=== PATIENT | male | born 1980 | race Caucasian/White ===

== ENCOUNTER 2016-08-01 14:36 | Emergency (ER) | payer SELFPAY ==
[~2016-08-01] VITALS: Ht 170.2 cm; Wt 73.5 kg
[2016-08-01] MEDS ORDERED: IV NORMAL SALINE 1000ML BAG 1,000 ML IV SCH (15:08)
[2016-08-01 15:15] LABS: BASO # 0.1 x10^3/uL (0.0-0.2); BASO % 1 % (0-3); EOS % 7 % (0-3); HEMATOCRIT 39.3 % (39.0-53.0); HEMOGLOBIN 12.5 g/dL (13.0-17.5); LYMPH # 1.3 x10^3/uL (1.0-4.8); LYMPH % 12 % (24-48); MEAN CORPUSCULAR HEMOGLOBIN 26 pg (25-35); MEAN CORPUSCULAR HGB CONC 32 g/dL (31-37); MEAN CORPUSCULAR VOLUME 81 fL (79-100); MONO % 7 % (0-9); NEUT % 74 % (31-73); PLATELET COUNT 289 x10^3/uL (140-400); RED BLOOD COUNT 4.86 x10^6/uL (4.30-5.70); RED CELL DISTRIBUTION WIDTH 18.2 % (11.5-14.5); WHITE BLOOD COUNT 10.6 x10^3/uL (4.0-11.0)
[2016-08-01] MEDS ORDERED: FENTANYL PF 100 MCG/2 ML VIAL. IV ONE (15:15)
[2016-08-01] MEDS ORDERED: ONDANSETRON PF 4 MG/2 ML VIAL. IV ONE ×2 (15:15→17:00)
[2016-08-01 15:27] LABS: CALCIUM 9.2 mg/dL (8.5-10.1); GFR 86.1; POTASSIUM 4.2 mmol/L (3.5-5.1)
--- NOTE | 2016-08-01 15:32 | PHYS DOC ---
Past Medical History Past Medical History: Asthma, Other Additional Past Medical Histor: C-DIFF Past Surgical History: Appendectomy, Cholecystectomy Additional Past Surgical Histo: NASAL, CYST ON RIGHT WRIST Alcohol Use: None Drug Use: None Adult General Chief Complaint Chief Complaint: ABDOMINAL PAIN HPI HPI Patient is a 35 year old female who presents with abdominal pain and nausea/ vomiting/diarrhea. Patient reports for the past 3 days he has been having sharp right upper quadrant and suprapubic pain. No clear inciting or mitigating factors. He also reports he has been having nausea/vomiting/diarrhea as well. He reports 3 episodes of emesis over the past 24 hours. He also had 9 episodes of diarrhea yesterday. Patient reports symptoms are similar to when he had C. diff. He has taken Tylenol for pain with insufficient relief. Review of Systems Review of Systems Constitutional: Denies fever or chills Eyes: Denies change in visual acuity or eye pain HENT: Denies nasal congestion or sore throat Respiratory: Denies cough or shortness of breath Cardiovascular: Denies chest pain GI: RUQ/suprapubic abdominal pain, nausea, vomiting, diarrhea. Deneis bloody stools : Denies dysuria or hematuria Musculoskeletal: Denies back pain or joint pain Integument: Denies rash or skin lesions Neurologic: Denies headache, focal weakness or sensory changes Current Medications Current Medications Current Medications Medications (Trade) Dose Ordered Sig/Sugar Start Time Stop Time Status Last Admin Dose Admin Fentanyl Citrate (Fentanyl 2ml Vial) 50 mcg 1X ONCE 08/01/16 15:15 08/01/16 15:16 DC 08/01/16 15:28 50 MCG Morphine Sulfate 4 mg 1X ONCE 08/01/16 16:00 08/01/16 16:01 DC 08/01/16 15:53 4 MG Ondansetron HCl (Zofran) 4 mg 1X ONCE 08/01/16 17:00 08/01/16 17:01 DC Sodium Chloride (Iv Sodium Chloride 0.9% 1000ml Bag) 1,000 ml @ 1,000 mls/hr Q1H 08/01/16 15:08 08/01/16 16:07 DC 08/01/16 15:28 1,000 MLS/HR Allergies Allergies Allergies Coded Allergies Type Severity Reaction Last Updated Verified NSAIDS (Non-Steroidal Anti-Inflamma Allergy Intermediate 12/4/16 No chlorpheniramine Allergy Unknown 04/21/16 Yes levofloxacin Allergy Unknown 04/21/16 Yes lorazepam Allergy Unknown 04/21/16 Yes metoclopramide Allergy Unknown 04/21/16 Yes phenylephrine Allergy Unknown 04/21/16 Yes scopolamine Allergy Unknown 04/21/16 Yes tramadol Allergy Unknown 04/21/16 Yes Physical Exam Physical Exam Constitutional: Well developed, well nourished, no acute distress, non-toxic appearance HENT: Normocephalic, atraumatic, bilateral external ears normal Eyes: Wearing patch over L eye; R eye EOMI, no discharge Neck: Normal range of motion, no stridor Cardiovascular: Tachycardic, regular rhythm, no murmur Lungs & Thorax: Bilateral breath sounds clear to auscultation Abdomen: Bowel sounds normal, soft, non-distended, mild RUQ TTP without guarding or rebound Skin: Warm, dry, no erythema, no rash Extremities: No obvious deformity, no edema Neurologic: Alert and oriented X 3, no gross deficits noted Psychologic: Affect normal, judgement normal, mood normal Current Patient Data Vital Signs Vital Signs Date Time Temp Pulse Resp B/P Pulse Ox O2 Delivery O2 Flow Rate FiO2 08/01/16 16:57 94 24 135/76 08/01/16 15:56 Room Air 08/01/16 15:53 96 08/01/16 14:38 97.8 97.8 Lab Values Laboratory Tests Test 08/01/16 14:55 08/01/16 15:58 White Blood Count 10.6x10^3/uL (4.0-11.0) Red Blood Count 4.86x10^6/uL (4.30-5.70) Hemoglobin 12.5g/dL (13.0-17.5) L Hematocrit 39.3% (39.0-53.0) Mean Corpuscular Volume 81fL (79-100) Mean Corpuscular Hemoglobin 26pg (25-35) Mean Corpuscular Hemoglobin Concent 32g/dL (31-37) Red Cell Distribution Width 18.2% (11.5-14.5) H Platelet Count 289x10^3/uL (140-400) Neutrophils (%) (Auto) 74% (31-73) H Lymphocytes (%) (Auto) 12% (24-48) L Monocytes (%) (Auto) 7% (0-9) Eosinophils (%) (Auto) 7% (0-3) H Basophils (%) (Auto) 1% (0-3) Neutrophils # (Auto) 7.8x10^3uL (1.8-7.7) H Lymphocytes # (Auto) 1.3x10^3/uL (1.0-4.8) Monocytes # (Auto) 0.7x10^3/uL (0.0-1.1) Eosinophils # (Auto) 0.7x10^3/uL (0.0-0.7) Basophils # (Auto) 0.1x10^3/uL (0.0-0.2) Sodium Level 144mmol/L (136-145) Potassium Level 4.2mmol/L (3.5-5.1) Chloride Level 108mmol/L (98-107) H Carbon Dioxide Level 25mmol/L (21-32) Anion Gap 11 (6-14) Blood Urea Nitrogen 15mg/dL (8-26) Creatinine 1.0mg/dL (0.7-1.3) Estimated GFR (Cockcroft-Gault) 86.1 BUN/Creatinine Ratio 15 (6-20) Glucose Level 107mg/dL (70-99) H Calcium Level 9.2mg/dL (8.5-10.1) Total Bilirubin 0.2mg/dL (0.2-1.0) Aspartate Amino Transferase (AST) 16U/L (15-37) Alanine Aminotransferase (ALT) 20U/L (16-63) Alkaline Phosphatase 91U/L (46-116) Total Protein 7.3g/dL (6.4-8.2) Albumin 3.7g/dL (3.4-5.0) Albumin/Globulin Ratio 1.0 (1.0-1.7) Lipase 155U/L (73-393) Urine Collection Type Unknown Urine Color Yellow Urine Clarity Clear Urine pH 6.5 Urine Specific [place] 1.025 Urine Protein Negativemg/dL (NEG-TRACE) Urine Glucose (UA) Negativemg/dL (NEG) Urine Ketones (Stick) Negativemg/dL (NEG) Urine Blood Trace (NEG) Urine Nitrite Negative (NEG) Urine Bilirubin Negative (NEG) Urine Urobilinogen Dipstick 0.2mg/dL (0.2 mg/dL) Urine Leukocyte Esterase Negative (NEG) Urine RBC 1-2/HPF (0-2) Urine WBC 0/HPF (0-4) Urine Bacteria 0/HPF (0-FEW) Urine Mucus Slight/LPF Laboratory Tests 08/01/16 14:55 Laboratory Tests 08/01/16 14:55 EKG EKG [] Radiology/Procedures Radiology/Procedures [] Course & Med Decision Making Course & Med Decision Making Pertinent Labs and Imaging studies reviewed. (See chart for details) Patient is 35 year old male who presents with abdominal pain and N/V/D. Possible C diff, as patient has history of this. Will check labs, stool studies. IVF, pain meds, anti-emetic for symptom relief. Labs unremarkable. Patient has not been able to provide stool sample while in the ED. Discussed results with patient. He is feeling better at this time. Will go ahead and treat empirically for C diff. Patient discharged with rx for flagyl, nausea meds , short course of pain medication, instructions for close follow up with PCP, return precautions. Dragon Disclaimer Dragon Disclaimer This electronic medical record was generated, in whole or in part, using a voice recognition dictation system. Departure Departure Impression: Primary Impression: Diarrhea Additional Impression: Abdominal pain Disposition: 01 HOME, SELF-CARE Condition: IMPROVED Referrals: NO PCP (PCP) Patient Instructions: Abdominal Pain (Nonspecific), Diarrhea, Nausea and Vomiting Additional Instructions: Thank you for allowing us to provide care today in the Emergency Department. Take the provided medication as directed. Use caution when taking the pain medication as it can make you drowsy. Schedule a follow up appointment with your primary care doctor. Return promptly to the Emergency Department if you develop any new or concerning symptoms. Scripts Metronidazole 500 Mg Tablet1 Tab PO TID #30 TAB Prov:LORRAINE HILLS MD 08/01/16 Hydrocodone/Apap 5-325 ([place] 5-325 Tablet)1 Each Tablet1 Tab PO PRN Q6HRS PRN PAIN #15 TAB Prov:LORRAINE HILLS MD 08/01/16 Ondansetron Hcl (Zofran)4 Mg Tablet1 Tab PO Q8HRS PRN NAUSEA #15 TAB Prov:LORRAINE HILLS MD 08/01/16 Problem Qualifiers LORRAINE HILLS MD Aug 01, 2016 15:32
[2016-08-01 15:33] LABS: ALBUMIN 3.7 g/dL (3.4-5.0); TOTAL BILIRUBIN 0.2 mg/dL (0.2-1.0); TOTAL PROTEIN 7.3 g/dL (6.4-8.2)
[2016-08-01] MEDS ORDERED: MORPHINE SULFATE 4 MG/ML DISP.SYRIN. IV ONE (16:00)
[2016-08-01 16:05] LABS: BILIRUBIN,URINE NEGATIVE (NEG); GLUCOSE,URINE NEGATIVE (NEG); NITRITE,URINE NEGATIVE (NEG); PH,URINE 6.5; PROTEIN,URINE NEGATIVE (NEG-TRACE); UROBILINOGEN,URINE 0.2 mg/dL (0.2 mg/dL)
[2016-08-01 16:29] LABS: BACTERIA,URINE 0 /HPF (0-FEW); WBC,URINE 0 /HPF (0-4)
[2016-08-01 16:57] VITALS: BP 135/76
[2016-08-01] MEDS ORDERED: ONDA4TAB7 PO (17:06)
[2016-08-01] MEDS ORDERED: HYDR-971 PO (17:06)
[2016-08-01] MEDS ORDERED: METR500T4 PO (17:07)
== END 2016-08-01 17:15 | disposition home or self-care (01) ==
LOC: ER 14:36
DX: R19.7 Diarrhea, unspecified (principal); R10.11 Right upper quadrant pain; R11.2 Nausea with vomiting, unspecified; R10.30 Lower abdominal pain, unspecified; J45.909 Unspecified asthma, uncomplicated; Z88.6 Allergy status to analgesic agent; Z88.1 Allergy status to other antibiotic agents; Z88.5 Allergy status to narcotic agent; Z88.8 Allergy status to other drugs, medicaments and biological substances; Z90.49 Acquired absence of other specified parts of digestive tract
CPT/HCPCS: 36415; 80053; 81001; 83690; 85027; 96361; 96374; 96375; 99284; J2270; J2405; J3010; J7030

== ENCOUNTER 2016-08-06 15:57 | Inpatient (IN) | payer SELFPAY ==
[~2016-08-06] VITALS: Ht 170.2 cm; Wt 68.5 kg
[~2016-08-06 15:57] MED LIST: HYDR-971 PO; METR500T4 PO; ONDA4TAB7 PO
[2016-08-06] MEDS ORDERED: IV NORMAL SALINE 1000ML BAG 1,000 ML IV SCH (16:17)
--- NOTE | 2016-08-06 16:25 | PHYS DOC ---
Past Medical History Past Medical History: Asthma, Other Additional Past Medical Histor: C-DIFF Past Surgical History: Appendectomy, Cholecystectomy Additional Past Surgical Histo: NASAL, CYST ON RIGHT WRIST Alcohol Use: None Drug Use: None Adult General Chief Complaint Chief Complaint: DIARRHEA HPI HPI 35-year-old male who has ongoing C. difficile infection and is on day 7 of a 10 day course of Flagyl. He was seen 7 days ago with the symptoms prescribe Flagyl that time. He states over the last several days his pain has worsened and his diarrhea has not improved. He states that little to eat or drink. He localizes also pain to the right upper quadrant. He reports that he's had ongoing issues with C. difficile ever since he had a cholecystectomy back in January. He required admission initially with IV antibiotics. The possibility of fecal transplant was discussed and he did not undergo this. He denies any vomiting. He states he has history of asthma only. He states he's anaphylactic with NSAIDs and has had to be intubated four times when he takes NSAIDs. Pt states his pain is an 8/10 on the pain scale. Review of Systems Review of Systems Constitutional: Denies fever or chills [] Eyes: Denies change in visual acuity, redness, or eye pain [] HENT: Denies nasal congestion or sore throat [] Respiratory: Denies cough or shortness of breath [] Cardiovascular: No additional information not addressed in HPI [] GI: Has abdominal pain, has nausea, denies vomiting, denies bloody stools, has diarrhea [] : Denies dysuria or hematuria [] Musculoskeletal: Denies back pain or joint pain [] Integument: Denies rash or skin lesions [] Neurologic: Denies headache, focal weakness or sensory changes [] Endocrine: Denies polyuria or polydipsia [] Current Medications Current Medications Current Medications Medications (Trade) Dose Ordered Sig/Sugar Start Time Stop Time Status Last Admin Dose Admin Hydromorphone HCl (Dilaudid) 1 mg 1X ONCE 08/06/16 16:30 08/06/16 16:31 DC 08/06/16 17:03 1 MG Ondansetron HCl 4 mg 4 mg 1X ONCE 08/06/16 16:30 08/06/16 16:31 DC 08/06/16 17:03 4 MG Sodium Chloride (Iv Sodium Chloride 0.9% 1000ml Bag) 1,000 ml @ 125 mls/hr Q8H 08/06/16 17:27 08/07/16 17:26 Allergies Allergies Allergies Coded Allergies Type Severity Reaction Last Updated Verified NSAIDS (Non-Steroidal Anti-Inflamma Allergy Intermediate 04/21/16 No chlorpheniramine Allergy Unknown 04/21/16 Yes levofloxacin Allergy Unknown 04/21/16 Yes lorazepam Allergy Unknown 04/21/16 Yes metoclopramide Allergy Unknown 04/21/16 Yes phenylephrine Allergy Unknown 04/21/16 Yes scopolamine Allergy Unknown 04/21/16 Yes tramadol Allergy Unknown 04/21/16 Yes Physical Exam Physical Exam Constitutional: Well developed, well nourished, no acute distress, non-toxic appearance. [] HENT: Normocephalic, atraumatic, bilateral external ears normal, oropharynx moist, no oral exudates, nose normal. [] Eyes: PERRLA, EOMI, conjunctiva normal, no discharge. [] Neck: Normal range of motion, no tenderness, supple, no stridor. [] Cardiovascular:Heart rate regular rhythm, no murmur [] Lungs & Thorax: Bilateral breath sounds clear to auscultation [] Abdomen: Bowel sounds normal, soft, RUQ tenderness, no masses, no pulsatile masses. [] Skin: Warm, dry, no erythema, no rash. [] Back: No tenderness, no CVA tenderness. [] Extremities: No tenderness, no cyanosis, no clubbing, ROM intact, no edema. [] Neurologic: Alert and oriented X 3, normal motor function, normal sensory function, no focal deficits noted. [] Psychologic: Affect normal, judgement normal, mood normal. [] Current Patient Data Vital Signs Vital Signs Date Time Temp Pulse Resp B/P Pulse Ox O2 Delivery O2 Flow Rate FiO2 08/06/16 17:03 16 08/06/16 16:25 98.0 114 141/104 99 Room Air 98.0 Lab Values Laboratory Tests Test 08/06/16 16:50 White Blood Count 9.4x10^3/uL (4.0-11.0) Red Blood Count 4.89x10^6/uL (4.30-5.70) Hemoglobin 12.5g/dL (13.0-17.5) L Hematocrit 39.2% (39.0-53.0) Mean Corpuscular Volume 80fL (79-100) Mean Corpuscular Hemoglobin 26pg (25-35) Mean Corpuscular Hemoglobin Concent 32g/dL (31-37) Red Cell Distribution Width 18.4% (11.5-14.5) H Platelet Count 352x10^3/uL (140-400) Neutrophils (%) (Auto) 60% (31-73) Lymphocytes (%) (Auto) 16% (24-48) L Monocytes (%) (Auto) 7% (0-9) Eosinophils (%) (Auto) 17% (0-3) H Basophils (%) (Auto) 1% (0-3) Neutrophils # (Auto) 5.6x10^3uL (1.8-7.7) Lymphocytes # (Auto) 1.5x10^3/uL (1.0-4.8) Monocytes # (Auto) 0.7x10^3/uL (0.0-1.1) Eosinophils # (Auto) 1.6x10^3/uL (0.0-0.7) H Basophils # (Auto) 0.1x10^3/uL (0.0-0.2) Sodium Level 140mmol/L (136-145) Potassium Level 4.7mmol/L (3.5-5.1) Chloride Level 105mmol/L (98-107) Carbon Dioxide Level 24mmol/L (21-32) Anion Gap 11 (6-14) Blood Urea Nitrogen 16mg/dL (8-26) Creatinine 1.0mg/dL (0.7-1.3) Estimated GFR (Cockcroft-Gault) 86.1 Glucose Level 115mg/dL (70-99) H Calcium Level 8.9mg/dL (8.5-10.1) Total Bilirubin 0.2mg/dL (0.2-1.0) Direct Bilirubin < 0.1mg/dL (0.0-0.2) Aspartate Amino Transferase (AST) 17U/L (15-37) Alanine Aminotransferase (ALT) 20U/L (16-63) Alkaline Phosphatase 91U/L (46-116) Total Protein 6.7g/dL (6.4-8.2) Albumin 3.6g/dL (3.4-5.0) Lipase 151U/L (73-393) Laboratory Tests 08/06/16 16:50 Laboratory Tests 08/06/16 16:50 EKG EKG [] Radiology/Procedures Radiology/Procedures [] Course & Med Decision Making Course & Med Decision Making Pertinent Labs and Imaging studies reviewed. (See chart for details) This 35-year-old male with significant right upper quadrant pain and continued diarrhea for the last several weeks is likely still having ongoing C. difficile infection. IV fluids, IV Dilaudid, IV Zofran will be administered. Stool cultures and full laboratory workup will be obtained. On my second reassessment, the patient still requiring more pain control and I will be admitting him for further evaluation treatment for his diarrhea and abdominal pain. His laboratory workup at this time is unrevealing. I discussed the need to admit the patient for his ongoing symptoms with Dr. Negrete, the hospitalist, who agreed to accept the patient in to begin PO vancomycin treatment for likely ongoing C-Diff infection. He will continue to receive IVF and pain control. Dragon Disclaimer Dragon Disclaimer This electronic medical record was generated, in whole or in part, using a voice recognition dictation system. Departure Departure Impression: Primary Impression: C. difficile colitis Additional Impressions: Diarrhea Abdominal pain Disposition: ADMITTED INPATIENT Admitting Physician: Airam Negrete Condition: STABLE Referrals: NO PCP (PCP) Problem Qualifiers DAMEON PHAM DO Aug 06, 2016 16:25
[2016-08-06] MEDS ORDERED: ONDANSETRON PF 4 MG/2 ML VIAL. IV ONE (16:30)
[2016-08-06] MEDS ORDERED: HYDROMORPHONE 2 MG/ML VIAL. IV ONE ×2 (16:30→17:45)
[2016-08-06 17:08] LABS: BASO # 0.1 x10^3/uL (0.0-0.2); BASO % 1 % (0-3); EOS % 17 % (0-3); HEMATOCRIT 39.2 % (39.0-53.0); HEMOGLOBIN 12.5 g/dL (13.0-17.5); LYMPH # 1.5 x10^3/uL (1.0-4.8); LYMPH % 16 % (24-48); MEAN CORPUSCULAR HEMOGLOBIN 26 pg (25-35); MEAN CORPUSCULAR HGB CONC 32 g/dL (31-37); MEAN CORPUSCULAR VOLUME 80 fL (79-100); MONO % 7 % (0-9); NEUT % 60 % (31-73); PLATELET COUNT 352 x10^3/uL (140-400); RED BLOOD COUNT 4.89 x10^6/uL (4.30-5.70); RED CELL DISTRIBUTION WIDTH 18.4 % (11.5-14.5); WHITE BLOOD COUNT 9.4 x10^3/uL (4.0-11.0)
[2016-08-06 17:14] LABS: CALCIUM 8.9 mg/dL (8.5-10.1); GFR 86.1; POTASSIUM 4.7 mmol/L (3.5-5.1)
[2016-08-06] MEDS ORDERED: ONDANSETRON PF 4 MG/2 ML VIAL. IV PRN (17:30)
[2016-08-06] MEDS ORDERED: ACETAMINOPHEN 325 MG TABLET. PO PRN (17:30)
[2016-08-06] MEDS ORDERED: VANCOMYCIN 125 MG/2.5 ML ORAL SOLUTION. PO ONE (18:00)
[2016-08-06] MEDS ORDERED: VANCOMYCIN 250 MG/5 ML ORAL SOLUTION. PO ONE (18:00)
[2016-08-06 18:13] LABS: ALBUMIN 3.6 g/dL (3.4-5.0); ALK PHOS 91 U/L (46-116); ALT (SGPT) 20 U/L (16-63); AST (SGOT) 17 U/L (15-37); DIRECT BILIRUBIN < 0.1 mg/dL (0.0-0.2); TOTAL BILIRUBIN 0.2 mg/dL (0.2-1.0); TOTAL PROTEIN 6.7 g/dL (6.4-8.2)
[2016-08-06] MEDS: HYDROMORPHONE 2 MG/ML VIAL. IV PRN ×2 (18:44→20:49)
[2016-08-06] MEDS: IV NORMAL SALINE 1000ML BAG 1,000 ML IV SCH (18:44)
[2016-08-06] MEDS ORDERED: BUDE10.2 IH (18:50)
[2016-08-06] MEDS ORDERED: PROVENTIL HFA6.7 GM IH (18:50)
[2016-08-06 19:00] VITALS: BP 137/90
[2016-08-06] MEDS ORDERED: NON FORMULARY ITEM (Budesonide/Formoterol Fumarate (Symbicort 160-4.5 Mcg Inhaler) 2 PUFF) IH SCH (21:00)
[2016-08-06] MEDS ORDERED: NON FORMULARY ITEM (Albuterol Sulfate (Proventil Hfa Inhaler) 1 PUFF) IH PRN (21:00)
[2016-08-06] MEDS ORDERED: ONDANSETRON ODT 4 MG TAB.RAPDIS PO PRN (21:00)
--- NOTE | 2016-08-06 21:26 | PDOC1 ---
History and Physical Date of Admission Date of Admission DATE: 08/06/16 TIME: 21:25 Identification/Chief Complaint Chief Complaint RUQ pain Source Source: Chart review, Patient History of Present Illness History of Present Illness Mr. Rivera is a a 35-year-old male with a story that is convoluted at best 4 ER visits here for abd pain, and Left AMA Dec 5 when narcotics were witheld. There is never a stool pos for c.diff. Abx started empirically 6 days ago, flagadriana, and he reports worsening pain and diarrhea, was only near this hospital as he was [place] with his [place] in the Area. He has bene to [facility], [facility] and [facility] He reports intubated 4 times due to being given NSAIDS, prior pain from Migranes, no recent RAMEY. Prior Chasidy, now RUQ pain, 9/10, better with IV dilaudid given in the ER. He was only given #15 Percocets 6 days ago by ER eval, Past Medical History Cardiovascular: No pertinent hx Pulmonary: Asthma CENTRAL NERVOUS SYSTEM: Migraine GI: Other (colitis) Heme/Onc: No pertinent hx Hepatobiliary: No pertinent hx Psych: No pertinent hx Musculoskeletal: low back pain Rheumatologic: No pertinent hx Infectious disease: No pertinent hx ENT: No pertinent hx Renal/: No pertinent hx Past Surgical History Past Surgical History: Other (nasal surg. severed left optic nerve, left eye blind) Social History Smoke: 1 pack per day (CHEW) ALCOHOL: none Current Problem List Problem List Problems Medical Problems: (1) Abdominal pain Status: Acute (2) C. difficile colitis Status: Acute (3) Diarrhea Status: Acute Problems: Current Medications Current Medications Current Medications Sodium Chloride (Iv Sodium Chloride 0.9% 1000ml Bag) 1,000 ml @ 1,000 mls/hr Q1H IV Last administered on 08/06/16 17:02; Start 08/06/16 at 16:17; Stop at 17:16; Status DC Hydromorphone HCl (Dilaudid) 1 mg 1X ONCE IV Last administered on 08/06/16 17 :03; Start 08/06/16 at 16:30; Stop 08/06/16 at 16:31; Status DC Ondansetron HCl (Zofran) 4 mg 1X ONCE IV Last administered on 08/06/16 17:03 ; Start 08/06/16 at 16:30; Stop 08/06/16 at 16:31; Status DC Ondansetron HCl 4 mg 4 mg PRN Q8HRS PRN IV NAUSEA/VOMITING Last administered on 08/06/16 18:43; Start 08/06/16 at 17:30; Stop 08/07/16 at 17:29 Sodium Chloride (Iv Sodium Chloride 0.9% 1000ml Bag) 1,000 ml @ 125 mls/hr Q8H IV Last administered on 08/06/16 18:44; Start 08/06/16 at 17:27; Stop at 17:26 Acetaminophen (Tylenol) 650 mg PRN Q4HRS PRN PO FEVER; Start 08/06/16 at 17:30 ; Stop 08/07/16 at 17:29 Hydromorphone HCl (Dilaudid) 1 mg PRN Q2HR PRN IV PAIN SEVERE Last administered on 08/06/16 20:49; Start 08/06/16 at 17:30; Stop 08/06/16 at 20:57 ; Status DC Hydromorphone HCl (Dilaudid) 1 mg 1X ONCE IV Last administered on 08/06/16 17 :54; Start 08/06/16 at 17:45; Stop 08/06/16 at 17:46; Status DC Vancomycin HCl 250 mg [id number] PO ; Start 08/06/16 at 23:00 Vancomycin HCl 250 mg ONCE ONCE PO ; Start 08/06/16 at 18:00; Stop 08/06/16 at 18:00; Status DC Vancomycin HCl 250 mg ONCE ONCE PO Last administered on 08/06/16 18:16; Start 08/06/16 at 18:00; Stop 08/06/16 at 18:01; Status DC Non-Formulary Medication 1 puff PRN Q4HRS PRN IH SHORTNESS OF BREATH; Start at 21:00; Status UNV Non-Formulary Medication 2 puff BID IH ; Start 08/06/16 at 21:00; Status UNV Ondansetron HCl (Zofran Odt) 4 mg PRN Q8HRS PRN PO NAUSEA; Start 08/06/16 at 21 :00 Oxycodone/ Acetaminophen (Percocet 10/325) 1 tab PRN Q4HRS PRN PO SEVERE PAIN; Start 08/06/16 at 21:00 Hydromorphone HCl (Dilaudid) 1 mg PRN Q4HRS PRN IVP SEVERE PAIN; Start at 21:00 Budesonide (Pulmicort) 0.5 mg RTBID NEB ; Start 08/07/16 at 08:00 Albuterol Sulfate (Ventolin Neb Soln) 2.5 mg RTQID NEB ; Start 08/07/16 at 08:00 Albuterol Sulfate (Ventolin Neb Soln) 2.5 mg PRN Q4HRS PRN NEB SHORTNESS OF BREATH; Start 08/06/16 at 21:00 Active Scripts Active Metronidazole 500 Mg Tablet 1 Tab PO TID [place] 5-325 Tablet (Acetaminophen/Hydrocodone Bitart) 1 Each Tablet 1 Tab PO PRN Q6HRS PRN Zofran (Ondansetron Hcl) 4 Mg Tablet 1 Tab PO Q8HRS PRN Reported Proventil Hfa Inhaler (Albuterol Sulfate) 6.7 Gm Hfa.aer.ad 1 Puff IH PRN Q4HRS PRN Symbicort 160-4.5 Mcg Inhaler (Budesonide/Formoterol Fumarate) 10.2 Gm Hfa.aer.ad 2 Puff IH BID Allergies Allergies: Coded Allergies: NSAIDS (Non-Steroidal Anti-Inflamma (Unverified Allergy, Intermediate, 04/21/16) chlorpheniramine (Verified Allergy, Intermediate, 08/06/16) levofloxacin (Verified Allergy, Intermediate, 08/06/16) lorazepam (Verified Allergy, Intermediate, 08/06/16) metoclopramide (Verified Allergy, Intermediate, 08/06/16) phenylephrine (Verified Allergy, Intermediate, 08/06/16) scopolamine (Verified Allergy, Intermediate, 08/06/16) tramadol (Verified Allergy, Intermediate, 08/06/16) ROS General: No: Appetite, Chills, Fatigue, Malaise, Night Sweats, Other PSYCHOLOGICAL ROS: No: Anxiety, Behavioral Disorder, Concentration difficultie , Decreased libido, Depression, Disorientation, Hallucinations, Hostility, Irritablity, Memory difficulties, Mood Swings, Obsessive thoughts, Other, Physical abuse, Sexual abuse, Sleep disturbances, Suicidal ideation Eyes: No Blurry vision, No Decreased vision, No Double vision, No Dry eyes, No Excessive tearing, No Eye Pain, No Itchy Eyes, No Loss of vision, No Other, No Photophobia, No Scotomata, No Uses contacts, No Uses glasses Respiratory: No: Cough, Hemoptysis, Orthopnea, Other, Pleuritic Pain, SOB with excertion, Shortness of breath, Sputum Changes, Stridor, Tachypnea, Wheezing Cardiovascular: yes Chest Pain, No Edema, No Lt Headedness, No Orthopnea, No Other, No Palpitations, No Paroxysmal Noc. Dyspnea Gastrointestinal: Yes Abdominal Pain, Yes Diarrhea, Yes Nausea Genitourinary: No , No , No , No , No , No , No , No Discharge, No Dysuria, No Flank Pain, No Frequency, No Hematuria, No Incontinence, No Other, No Pain, No Retention, No Urgency Musculoskeletal: Yes Joint Pain, No Gait Disturbance, No Joint Stiffness, No Joint Swelling, No Muscle Pain, No Muscular Weakness, No Other, No Pain In:, No Swelling In: Neurological: No Behavorial Changes, No Bowel/Bladder ControlChng, No Confusion , No Dizziness, No Gait Disturbance, No Headaches, No Impaired Coord/balance, No Memory Loss, No Numbness/Tingling, No Other, No Seizures, No Speech Problems , No Tremors, No Visual Changes, No Weakness Skin: No Acne, No Dry Skin, No Eczema, No Hair Changes, No Lumps, No Mole Changes, No Mottling, No Nail Changes, No Other, No Pruritus, No Rash, No Skin Lesion Changes Physical Exam General: Alert, Oriented X3, Cooperative, No acute distress Lungs: Clear to auscultation, Normal air movement Heart: S1S2, no murmurs Abdomen: Normal bowel sounds, Soft, No tenderness Rectal Exam: not examined Extremities: No clubbing, No edema Skin: No rashes, No significant lesion Neuro: Normal speech, Normal tone, Sensation intact Psych/Mental Status: Mental status NL, Mood NL Vitals Vitals Vital Signs Date Time Temp Pulse Resp B/P Pulse Ox O2 Delivery O2 Flow Rate FiO2 08/06/16 20:49 20 100 Room Air 08/06/16 19:00 98.0 90 137/90 98.0 Labs Labs Laboratory Tests Test 3/21/17 16:50 White Blood Count 9.4x10^3/uL (4.0-11.0) Red Blood Count 4.89x10^6/uL (4.30-5.70) Hemoglobin 12.5g/dL (13.0-17.5) Hematocrit 39.2% (39.0-53.0) Mean Corpuscular Volume 80fL (79-100) Mean Corpuscular Hemoglobin 26pg (25-35) Mean Corpuscular Hemoglobin Concent 32g/dL (31-37) Red Cell Distribution Width 18.4% (11.5-14.5) Platelet Count 352x10^3/uL (140-400) Neutrophils (%) (Auto) 60% (31-73) Lymphocytes (%) (Auto) 16% (24-48) Monocytes (%) (Auto) 7% (0-9) Eosinophils (%) (Auto) 17% (0-3) Basophils (%) (Auto) 1% (0-3) Neutrophils # (Auto) 5.6x10^3uL (1.8-7.7) Lymphocytes # (Auto) 1.5x10^3/uL (1.0-4.8) Monocytes # (Auto) 0.7x10^3/uL (0.0-1.1) Eosinophils # (Auto) 1.6x10^3/uL (0.0-0.7) Basophils # (Auto) 0.1x10^3/uL (0.0-0.2) Sodium Level 140mmol/L (136-145) Potassium Level 4.7mmol/L (3.5-5.1) Chloride Level 105mmol/L (98-107) Carbon Dioxide Level 24mmol/L (21-32) Anion Gap 11 (6-14) Blood Urea Nitrogen 16mg/dL (8-26) Creatinine 1.0mg/dL (0.7-1.3) Estimated GFR (Cockcroft-Gault) 86.1 Glucose Level 115mg/dL (70-99) Calcium Level 8.9mg/dL (8.5-10.1) Total Bilirubin 0.2mg/dL (0.2-1.0) Direct Bilirubin < 0.1mg/dL (0.0-0.2) Aspartate Amino Transf (AST/SGOT) 17U/L (15-37) Alanine Aminotransferase (ALT/SGPT) 20U/L (16-63) Alkaline Phosphatase 91U/L (46-116) Total Protein 6.7g/dL (6.4-8.2) Albumin 3.6g/dL (3.4-5.0) Lipase 151U/L (73-393) Laboratory Tests Test 08/06/16 16:50 White Blood Count 9.4x10^3/uL (4.0-11.0) Red Blood Count 4.89x10^6/uL (4.30-5.70) Hemoglobin 12.5g/dL (13.0-17.5) Hematocrit 39.2% (39.0-53.0) Mean Corpuscular Volume 80fL (79-100) Mean Corpuscular Hemoglobin 26pg (25-35) Mean Corpuscular Hemoglobin Concent 32g/dL (31-37) Red Cell Distribution Width 18.4% (11.5-14.5) Platelet Count 352x10^3/uL (140-400) Neutrophils (%) (Auto) 60% (31-73) Lymphocytes (%) (Auto) 16% (24-48) Monocytes (%) (Auto) 7% (0-9) Eosinophils (%) (Auto) 17% (0-3) Basophils (%) (Auto) 1% (0-3) Neutrophils # (Auto) 5.6x10^3uL (1.8-7.7) Lymphocytes # (Auto) 1.5x10^3/uL (1.0-4.8) Monocytes # (Auto) 0.7x10^3/uL (0.0-1.1) Eosinophils # (Auto) 1.6x10^3/uL (0.0-0.7) Basophils # (Auto) 0.1x10^3/uL (0.0-0.2) Sodium Level 140mmol/L (136-145) Potassium Level 4.7mmol/L (3.5-5.1) Chloride Level 105mmol/L (98-107) Carbon Dioxide Level 24mmol/L (21-32) Anion Gap 11 (6-14) Blood Urea Nitrogen 16mg/dL (8-26) Creatinine 1.0mg/dL (0.7-1.3) Estimated GFR (Cockcroft-Gault) 86.1 Glucose Level 115mg/dL (70-99) Calcium Level 8.9mg/dL (8.5-10.1) Total Bilirubin 0.2mg/dL (0.2-1.0) Direct Bilirubin < 0.1mg/dL (0.0-0.2) Aspartate Amino Transf (AST/SGOT) 17U/L (15-37) Alanine Aminotransferase (ALT/SGPT) 20U/L (16-63) Alkaline Phosphatase 91U/L (46-116) Total Protein 6.7g/dL (6.4-8.2) Albumin 3.6g/dL (3.4-5.0) Lipase 151U/L (73-393) VTE Prophylaxis Ordered VTE Prophylaxis Devices: No VTE Pharmacological Prophylaxi: Yes Assessment/Plan Assessment/Plan abd pain, RUQ, severe, he reports prior chasidy, LFT normal, lipase normal reports pain and freq stool, no stool sample given yet treat for c.diff started 6 days ago, he reports worse stool, I am unsure this is even this diagnosis, PO Vanc given, will continue ID consult GI consult, colitis, may be other Dr. Fernandez was concerned of behavior of secondary intent on his Apr.22 visit with this patient when the patient left AMA when no narcotics given, will treat with caution with this information, tobacco use d/o, (chew) patch PRN asthma, SEVERE, he reports rescue inhaler freq. lung sounds clear admit CARA JONES MD Aug 06, 2016 21:26
[2016-08-06] MEDS ORDERED: BISMUTH SUBSALICYLATE 262 MG/15 ML ORAL.SUSP 236ML BOTTLE. PO PRN (21:45)
[2016-08-06] MEDS ORDERED: NICOTINE 14MG PATCH. TD PRN (21:45)
[2016-08-06] MEDS ORDERED: METOCLOPRAMIDE 5 MG TABLET PO PRN (22:00)
[2016-08-06] MEDS: OXYCODONE/APAP 10/325 TABLET. PO PRN (22:02)
[2016-08-06] MEDS: FAMOTIDINE 20 MG TABLET. PO SCH (22:04)
[2016-08-06] MEDS: ALBUTEROL SULFATE 2.5 MG/3 ML NEBU. NEB PRN (22:23)
[2016-08-06] MEDS: DIPHENHYDRAMINE HCL 25 MG CAPSULE PO PRN (22:44)
[2016-08-06] MEDS: HYDROMORPHONE 2 MG/ML VIAL. IVP PRN (22:45)
[2016-08-06] MEDS: VANCOMYCIN 250 MG/5 ML ORAL SOLUTION. PO SCH (22:45)
[2016-08-06 22:50] VITALS: BP 137/94
[2016-08-07] MEDS: IV NORMAL SALINE 1000ML BAG 1,000 ML IV SCH ×2 (01:27→10:42)
[2016-08-07 03:00] VITALS: BP 134/88
[2016-08-07] MEDS: HYDROMORPHONE 2 MG/ML VIAL. IVP PRN ×5 (03:29→21:35)
[2016-08-07] MEDS: OXYCODONE/APAP 10/325 TABLET. PO PRN ×4 (03:29→21:36)
[2016-08-07 05:25] LABS: BASO % 1 % (0-3); EOS % 22 % (0-3); HEMATOCRIT 37.7 % (39.0-53.0); HEMOGLOBIN 11.8 g/dL (13.0-17.5); LYMPH # 1.8 x10^3/uL (1.0-4.8); LYMPH % 27 % (24-48); MEAN CORPUSCULAR HEMOGLOBIN 25 pg (25-35); MEAN CORPUSCULAR HGB CONC 31 g/dL (31-37); MEAN CORPUSCULAR VOLUME 82 fL (79-100); MONO % 8 % (0-9); NEUT % 43 % (31-73); PLATELET COUNT 314 x10^3/uL (140-400); RED BLOOD COUNT 4.62 x10^6/uL (4.30-5.70); RED CELL DISTRIBUTION WIDTH 18.7 % (11.5-14.5)
[2016-08-07 05:46] LABS: CALCIUM 8.5 mg/dL (8.5-10.1); CREATININE 1.2 mg/dL (0.7-1.3); GFR 69.7
[2016-08-07 06:17] LABS: % EOS 22 % (0-5)
[2016-08-07 06:18] LABS: ANISOCYTOSIS SLIGHT; PLT ESTIMATE ADEQUATE (ADEQUATE)
[2016-08-07 07:00] VITALS: BP 121/76
[2016-08-07] MEDS: BUDESONIDE 0.5 MG/2 ML NEBU NEB SCH ×2 (07:28→19:33)
[2016-08-07] MEDS: ALBUTEROL SULFATE 2.5 MG/3 ML NEBU. NEB SCH ×4 (07:28→19:33)
--- NOTE | 2016-08-07 07:33 | ACF ---
Admission Forms Criteria GASTROENTEROLOGY GRG Clinical Indications for Admission to Inpatient Care (Place 'X' for any and all applicable criteria): Hospital admission is needed for appropriate care of the patient because of ANY ONE of the following: [ ]I. Hemoperitoneum(7) [ ]II. Ascites requiring acute treatment indicated by ANY ONE of the following( 8)(9): [ ]a) Hemodynamic instability remaining after emergency or observation level care (as appropriate) [ ]b) Peritoneal signs present (eg, abdominal rigidity, rebound tenderness, absent bowel sounds) [ ]c) Tachypnea, Hypoxemia, or other respiratory symptoms remain after emergency or observation level care (as appropriate) [ ]d) Suspected infected ascites as indicated by ANY ONE of the following: [ ]i) Temperature greater than 100 degrees F (37.8 degrees C) [ ]ii) Abdominal pain or tenderness not relieved by paracentesis [ ]iii) Systemic signs of infection (eg, elevated WBC count, fever) [ ]iv) Ascitic fluid analysis consistent with infection ( eg, elevated WBC count): [ ]v) Vital sign abnormality [ ]III. Suspected acute intra-abdominal process indicated by ANY ONE of the following(1)(2)(3)(4)(5): [ ]a) Hemodynamic instability [ ]b) Peritoneal signs present (eg, abdominal rigidity, rebound tenderness, absent bowel sounds) [ ]c) Bowel obstruction suspected (eg, severe vomiting, abdominal distension) [ ]d) Suspected mesenteric ischemia or ischemic colitis(6) [ ]e) Other signs or symptoms of acute abdominal disease (eg, severe pain, free air): [ ]IV. Severe liver disease indicated by ANY ONE of the following(8)(9)(10)(11)( 12)(13)(14): [ ]a) Acute hepatitis (eg, transaminase level greater than 1000 IU/L) [ ]b) Acute elevation of prothrombin time to more than 50% above normal or INR greater than 1.5 [ ]c) Bilirubin greater than 20 mg/dL (342 micromoles/L) (15) [ ]d) New-onset or worsening hepatic encephalopathy [ ]e) Acute liver necrosis [ ]f) Vomiting or dehydration that is severe of persistent [ ]g) Hemodynamic instability due to liver disease [ ]h) Acute renal failure [ ]i) Hepatic abscess [ ]j) Dehydration that is severe or persistent [ ]k) Hepatic hydrothorax(21) [ ]l) Other indications of severe liver disease (eg, persistent fever , ingestion of hepatotoxin) [X]V. Severe diarrhea indicated by ANY ONE of the following(17)(18)(19)(20)(21)( 22)(23): [ ]a) High fever or other high-risk infection situation [ ]b) Intractable bloody diarrhea (eg, more than 6 bloody stools per day) [X]c) Suspected Clostridium difficile-associated diarrhea(24) [ ]d) Change in mental status that persists after emergency or observation level care (as appropriate) [ ]e) Severe dehydration (eg, greater than 9% loss of body weight in children) [ ]f) Inability to maintain hydration [ ]g) Peritoneal signs present (eg, abdominal rigidity, rebound tenderness, absent bowel sounds) [ ]h) Abdominal ischemia suspected(6) [ ]i) Hemodynamic instability that persists after emergency or observation level care (as appropriate) [ ]j) Severe electrolyte abnormalities requiring inpatient care [ ]k) Acute renal failure [ ]. Suspected toxic megacolon(5)(6) [ ]VII.Severe dysphagia indicated by ANY ONE of the following(25)(26): [ ]a) Suspected esophageal perforation or fistula(27) [ ]b) Suspected cause that requires inpatient care (eg, caustic ingestion, severe esophagitis) (28) [ ]c) Severe dehydration (eg, greater than 9% loss of body weight in children) [ ]d) Inability to manage secretions or maintain hydration [ ]e) Hemodynamic instability that persists after emergency or observation level care (as appropriate) [ ]f) Severe electrolyte abnormalities requiring inpatient care [ ]g) Acute renal failure [ ]VIII.Vomiting and ANY ONE of the following (29)(30)(31)(32): [ ]a) High fever or other high-risk infection situation [ ]b) Change in mental status that persists after emergency or observation level care (as appropriate) [ ]c) Severe dehydration (e.g., greater than 9% loss of body weight in children) [ ]d) Peritoneal signs present (e.g., abdominal rigidity, rebound tenderness, absent bowel sounds) [ ]e) Hemodynamic instability that persists after emergency or observation level care (as appropriate) [ ]f) Severe electrolyte abnormalities requiring inpatient care [ ]g) Acute renal failure [ ]h) Bowel obstruction suspected (e.g., severe vomiting, abdominal distension) [ ]i) Vomiting that is severe or persistent after medical treatment [ ]IX. Significant dehydration indicated by ANY ONE of the following(23)(24)(25) [ ]a) Clinical findings of severe dehydration indicated by ANY ONE of the following: [ ]i) Acute loss of weight from baseline (5% of body weight in adults, 9% in pediatric patients) [ ]ii) Hemodynamic instability [ ]iii) Acute renal failure [ ]iv) Serum sodium greater than 150 mEq/L (mmol/L) [ ]b) Dehydration that is persistent indicated by ALL of the following: [ ]i) Oral rehydration therapy not tolerated or insufficient to adequately correct dehydration [ ]ii) Appropriate intravenous treatment (eg, fluids) does not readily correct dehydration hours of (ie, after 12 to 24 of treatment) [ ]X. Gastroparesis and ANY ONE of the following(37)(38)(39): [ ]a) Dehydration that is severe or persistent [ ]b) Severe electrolyte abnormalities requiring inpatient care [ ]c) Acute renal failure [ ]d) Vomiting that is severe or persistent [ ]XI. Complications of transplanted liver indicated by ANY ONE of the following (40)(41): [ ]a) Acute graft rejection requiring inpatient management (eg, intravenous immunosuppression)(42) [ ]b) Failure of transplanted liver as indicated by ANY ONE of the following: [ ]i) Acute hepatitis (eg, transaminase level greater than 1000 International Units per liter (IU/L)) [ ]ii) Acute elevation of prothrombin time to more than 50% above baseline or INR greater than 1.5 [ ]iii) Bilirubin greater than 20 mg/dL (342 micromoles/L) [ ]iv) New-onset or worsening hepatic encephalopathy [ ]v) Acute elevation of serum ammonia level (eg, greater than 210 mcg/dL (150 micromoles/L)) [ ]vi) Acute liver necrosis [ ]c) Infection requiring inpatient management (eg, Hemodynamic instability, need for intravenous antimicrobial treatment)(43)(44)(45)(46)(47)(48)(49)(50) [ ]d) Other complication of transplanted liver (eg, thrombosis, autoimmune hepatitis, variceal bleeding) requiring inpatient management(51)(52) [ ]XII Complications of transplanted pancreas indicated by ANY ONE of the following(53): [ ]a) Acute graft rejection requiring inpatient management (eg, intravenous immunosuppression)(42)(54) [ ]b) Failure of transplanted pancreas as indicated by ANY ONE of the following: [ ]i) Serum amylase greater than 3 times the upper limit of normal or baseline [ ]ii) Serum lipase greater than 3 times the upper limit of normal or baseline [ ]iii) Imaging findings consistent with pancreatic inflammation or necrosis [ ]c) Infection requiring inpatient management (eg, Hemodynamic instability, need for intravenous antimicrobial treatment)(43)(44)(45)(46)(47)(48)(49)(50) [ ]d) Other complication of transplanted liver (eg, thrombosis, autoimmune hepatitis, variceal bleeding) requiring inpatient management(51)(52) [ ]X. Gastroenterology condition and ALL of the following: [ ]a) Symptom or finding for which emergency and observation care have failed or are not considered appropriate (Also use General Criteria: Observation Care as appropriate) [ ]b) Presence of ANY ONE of the following: [ ]i) A General Admission Criteria [ ]ii) A Pediatric General Admission Criteria. The original [facility] [employer] content created by [facility] [employer] has been revised. The portions of the content which have been revised are identified through the use of italic text or in bold,and [facility] has neither reviewed nor approved the modified material. All other unmodified content is copyright [facility]. Please see references footnoted in the original [facility] edition 2016 Admission Criteria Met?: Yes EDIL GONZALEZ Aug 07, 2016 07:33
[2016-08-07] MEDS: FAMOTIDINE 20 MG TABLET. PO SCH ×2 (08:10→21:36)
[2016-08-07] MEDS: ONDANSETRON PF 4 MG/2 ML VIAL. IV PRN ×2 (08:16→18:08)
--- NOTE | 2016-08-07 08:52 | PDOC2 ---
GI CONSULT Reason For Consult: RUQ pain, diarrhea HPI: HPI: 35 y/o male admitted through the ER. Records reviewed (at [facility], [facility]) indicate concern for possible drug-seeking behavior. Left AMA from ER in 04/2016 when narcotics withheld. Reports h/o C Diff; first occurrence in [place], [place] in 01/2016 during hospital stay for cholecystectomy. Treated first w/ Flagyl and then changed to vanco. Similar symptoms including nausea, malodorous diarrhea, and "intense" abdominal pain began over a week ago. No precipitating events including atbx use, travel, or sick contacts. Was seen at the ER here on 08/01/16 and empirically started on Flagyl. He says he also started OTC probiotics, can't remember brand. He returned last night w/ ongoing symptoms. Was having 8 watery stools daily at home when symptoms first began; diarrhea seems to have improved since because he estimates about 4 semi-formed stools yesterday w/o any today. Per RN, he had 1 formed stool last night that was unable to be collected to send for C Diff. (Note stool specimen never collected/tested at this facility.) Reports to me diffuse abdominal pain, worse w/ eating and moving. Rated 8/10 currently. Denies use of narcotics or any pain meds at home for chronic pain. Reports anaphylaxis w/ NSAIDs, also says dicyclomine doesn't work. Nausea is worse w/ eating. Has been gaining weight. On clears here, would like to advance diet. Denies GERD although had EGD prior to cholecystectomy (in [place]) which reportedly revealed some gastritis. No previous colonoscopy. Denies hematochezia, melena. In 04/2016, had normal CT @ [facility] although he reports a CT in [place], [place] 3-4 months ago showing "colon inflammation." Has two kids, ages 11 and 14, who are on spring break this week. Works in [employer]. PMH: PMH: C Diff, asthma, cholecystectomy, appendectomy, nasal surgery for polyps, sinus surgery w/ optic nerve injury (wears eye patch for double-vision/RAMEY prevention) FH: Family History: Cancer (grandmother - stomach, mother - cervical), Other ( mother - esophagus ulcers) Social History: Smoke: No (chewing tobacco) ALCOHOL: none Drugs: None ROS: GEN: Denies fevers, chills, sweats HEENT: Denies blurred vision, sore throat CV: Denies chest pain RESP: Denies shortness of air, cough GI: Per HPI : Denies hematuria, dysuria ENDO: +weight gain NEURO: Denies confusion, dizziness MSK: Denies weakness, joint pain/swelling SKIN: Denies jaundice, pruritus VItals: Vitals: Vital Signs Date Time Temp Pulse Resp B/P Pulse Ox O2 Delivery O2 Flow Rate FiO2 08/07/16 08:11 Room Air 08/07/16 07:29 99 08/07/16 07:00 98.4 74 16 121/76 98.4 Labs: Labs: Laboratory Tests Test 08/06/16 16:50 08/07/16 04:30 White Blood Count 9.4x10^3/uL (4.0-11.0) 7.0x10^3/uL (4.0-11.0) Red Blood Count 4.89x10^6/uL (4.30-5.70) 4.62x10^6/uL (4.30-5.70) Hemoglobin 12.5g/dL (13.0-17.5) 11.8g/dL (13.0-17.5) Hematocrit 39.2% (39.0-53.0) 37.7% (39.0-53.0) Mean Corpuscular Volume 80fL (79-100) 82fL (79-100) Mean Corpuscular Hemoglobin 26pg (25-35) 25pg (25-35) Mean Corpuscular Hemoglobin Concent 32g/dL (31-37) 31g/dL (31-37) Red Cell Distribution Width 18.4% (11.5-14.5) 18.7% (11.5-14.5) Platelet Count 352x10^3/uL (140-400) 314x10^3/uL (140-400) Neutrophils (%) (Auto) 60% (31-73) 43% (31-73) Lymphocytes (%) (Auto) 16% (24-48) 27% (24-48) Monocytes (%) (Auto) 7% (0-9) 8% (0-9) Eosinophils (%) (Auto) 17% (0-3) 22% (0-3) Basophils (%) (Auto) 1% (0-3) 1% (0-3) Neutrophils # (Auto) 5.6x10^3uL (1.8-7.7) 3.0x10^3uL (1.8-7.7) Lymphocytes # (Auto) 1.5x10^3/uL (1.0-4.8) 1.8x10^3/uL (1.0-4.8) Monocytes # (Auto) 0.7x10^3/uL (0.0-1.1) 0.6x10^3/uL (0.0-1.1) Eosinophils # (Auto) 1.6x10^3/uL (0.0-0.7) 1.5x10^3/uL (0.0-0.7) Basophils # (Auto) 0.1x10^3/uL (0.0-0.2) 0.0x10^3/uL (0.0-0.2) Sodium Level 140mmol/L (136-145) 140mmol/L (136-145) Potassium Level 4.7mmol/L (3.5-5.1) 4.0mmol/L (3.5-5.1) Chloride Level 105mmol/L (98-107) 105mmol/L (98-107) Carbon Dioxide Level 24mmol/L (21-32) 26mmol/L (21-32) Anion Gap 11 (6-14) 9 (6-14) Blood Urea Nitrogen 16mg/dL (8-26) 10mg/dL (8-26) Creatinine 1.0mg/dL (0.7-1.3) 1.2mg/dL (0.7-1.3) Estimated GFR (Cockcroft-Gault) 86.1 69.7 Glucose Level 115mg/dL (70-99) 77mg/dL (70-99) Calcium Level 8.9mg/dL (8.5-10.1) 8.5mg/dL (8.5-10.1) Total Bilirubin 0.2mg/dL (0.2-1.0) Direct Bilirubin < 0.1mg/dL (0.0-0.2) Aspartate Amino Transf (AST/SGOT) 17U/L (15-37) Alanine Aminotransferase (ALT/SGPT) 20U/L (16-63) Alkaline Phosphatase 91U/L (46-116) Total Protein 6.7g/dL (6.4-8.2) Albumin 3.6g/dL (3.4-5.0) Lipase 151U/L (73-393) Segmented Neutrophils % 42% (35-66) Lymphocytes % 28% (24-48) Monocytes % 8% (0-10) Eosinophils % 22% (0-5) Platelet Estimate Adequate (ADEQUATE) Anisocytosis Slight Allergies: Coded Allergies: NSAIDS (Non-Steroidal Anti-Inflamma (Unverified Allergy, Severe, Anaphylaxis, 08/06/16) chlorpheniramine (Verified Allergy, Intermediate, 08/06/16) levofloxacin (Verified Allergy, Intermediate, 08/06/16) lorazepam (Verified Allergy, Intermediate, 08/06/16) metoclopramide (Verified Allergy, Intermediate, 08/06/16) phenylephrine (Verified Allergy, Intermediate, 08/06/16) scopolamine (Verified Allergy, Intermediate, 08/06/16) tramadol (Verified Allergy, Intermediate, 08/06/16) Medications: Current Medications Medications (Trade) Dose Ordered Sig/Sugar Route PRN Reason Start Time Stop Time Status Last Admin Dose Admin Sodium Chloride (Iv Sodium Chloride 0.9% 1000ml Bag) 1,000 ml @ 1,000 mls/hr Q1H IV 08/06/16 16:17 08/06/16 17:16 DC 08/06/16 17:02 Hydromorphone HCl (Dilaudid) 1 mg 1X ONCE IV 08/06/16 16:30 08/06/16 16:31 DC 08/06/16 17:03 Ondansetron HCl (Zofran) 4 mg 1X ONCE IV 08/06/16 16:30 08/06/16 16:31 DC 08/06/16 17:03 Ondansetron HCl 4 mg 4 mg PRN Q8HRS PRN IV NAUSEA/VOMITING 08/06/16 17:30 08/06/16 22:00 DC 08/06/16 18:43 Sodium Chloride (Iv Sodium Chloride 0.9% 1000ml Bag) 1,000 ml @ 125 mls/hr Q8H IV 08/06/16 17:27 08/07/16 17:26 08/07/16 01:27 Hydromorphone HCl (Dilaudid) 1 mg PRN Q2HR PRN IV PAIN SEVERE 08/06/16 17:30 08/06/16 20:57 DC 08/06/16 20:49 Hydromorphone HCl (Dilaudid) 1 mg 1X ONCE IV 08/06/16 17:45 08/06/16 17:46 DC 08/06/16 17:54 Vancomycin HCl 250 mg [id number] PO 08/06/16 23:00 08/06/16 22:45 Vancomycin HCl 250 mg ONCE ONCE PO 08/06/16 18:00 08/06/16 18:01 DC 08/06/16 18:16 Oxycodone/ Acetaminophen (Percocet 10/325) 1 tab PRN Q4HRS PRN PO SEVERE PAIN 08/06/16 21:00 08/07/16 03:29 Hydromorphone HCl (Dilaudid) 1 mg PRN Q4HRS PRN IVP SEVERE PAIN 08/06/16 21:00 08/07/16 08:11 Budesonide (Pulmicort) 0.5 mg RTBID NEB 08/07/16 08:00 08/07/16 07:28 Albuterol Sulfate (Ventolin Neb Soln) 2.5 mg RTQID NEB 08/07/16 08:00 08/07/16 07:28 Albuterol Sulfate (Ventolin Neb Soln) 2.5 mg PRN Q4HRS PRN NEB SHORTNESS OF BREATH 08/06/16 21:00 08/06/16 22:23 Famotidine (Pepcid) 20 mg BID PO 08/06/16 22:00 08/07/16 08:10 Ondansetron HCl (Zofran) 8 mg PRN Q8HRS PRN IV NAUSEA/VOMITING 08/06/16 22:00 08/07/16 08:16 Diphenhydramine HCl (Benadryl) 25 mg PRN Q6HRS PRN PO ITCHING 08/06/16 22:00 08/06/16 22:44 PE: GEN: NAD, sitting up in bed HEENT: eye patch over left eye LUNGS: CTAB anteriorly HEART: RRR ABD: BS quiet, not much response when applying pressure w/ stethoscope, winces to palpation of RUQ and BLQ EXTREMITY: No edema SKIN: No rashes, no jaundice NEURO/PSYCH: A & O 3 A/P: A/P: Abd pain, diarrhea, nausea w/ h/o C Diff - improved -first occurrence in [place] in 01/2016, treated w/ Flagyl and vanco -recurrence of symptoms last week, empirically started on Flagyl through the ER -now admitted w/ ongoing symptoms, on vanco; ID consulted -no stool specimen collected, now having formed stools -normal CT at [facility] in 04/2016 -reports previous EGD w/ gastritis, s/p cholecystectomy and appendectomy Anemia -Hgb a little low (12/5 to 11.8) w/ elevated RDW -denies bleeding -- Not having diarrhea. Observe for this. He wants to try eating - will order GI soft. Encouraged him to avoid narcotics if possible. Will check additional labs (b12, folate, iron) re: anemia in young male. MARLENE MARC Aug 07, 2016 08:52
[2016-08-07 09:09] LABS: % SAT IRON 8 % (15-34); IRON,SERUM 28 ug/dL (65-175)
[2016-08-07 10:15] LABS: FOLATE 14.17 ng/ml (3.2-20.0)
[2016-08-07] MEDS: VANCOMYCIN 250 MG/5 ML ORAL SOLUTION. PO SCH ×4 (10:41→21:33)
[2016-08-07] MEDS: IRON POLYSACCHARIDE COMPLEX 150 MG CAPSULE PO SCH (10:42)
[2016-08-07 11:00] VITALS: BP 138/92
[2016-08-07] MEDS: VITAMIN B12,B9,B6 COMPLEX 1 TABLET. PO SCH (13:30)
--- NOTE | 2016-08-07 14:00 | PDOC ---
PROGRESS NOTES Chief Complaint Chief Complaint abd pain, RUQ, severe, LFT normal, no stool since admit iron deficiency b12 lowish anemia w. abd pain tobacco use, chew asthma, History of Present Illness History of Present Illness pain a little better no stool wants to eat he wanted to leave and not have EGD, we discussed benefit, and that he likely doesn't ahve c.diff, but has pain Vitals Vitals Vital Signs Date Time Temp Pulse Resp B/P Pulse Ox O2 Delivery O2 Flow Rate FiO2 08/07/16 13:31 Room Air 08/07/16 11:00 97.8 95 16 138/92 98 97.8 Physical Exam General: Alert, Oriented X3, Cooperative, No acute distress Heart: Regular rate Abdomen: Normal bowel sounds, Soft, No tenderness Extremities: No clubbing, No edema Skin: No rashes, No significant lesion Labs LABS Laboratory Tests Test 08/06/16 16:50 08/07/16 04:30 White Blood Count 9.4x10^3/uL (4.0-11.0) 7.0x10^3/uL (4.0-11.0) Red Blood Count 4.89x10^6/uL (4.30-5.70) 4.62x10^6/uL (4.30-5.70) Hemoglobin 12.5g/dL (13.0-17.5) 11.8g/dL (13.0-17.5) Hematocrit 39.2% (39.0-53.0) 37.7% (39.0-53.0) Mean Corpuscular Volume 80fL (79-100) 82fL (79-100) Mean Corpuscular Hemoglobin 26pg (25-35) 25pg (25-35) Mean Corpuscular Hemoglobin Concent 32g/dL (31-37) 31g/dL (31-37) Red Cell Distribution Width 18.4% (11.5-14.5) 18.7% (11.5-14.5) Platelet Count 352x10^3/uL (140-400) 314x10^3/uL (140-400) Neutrophils (%) (Auto) 60% (31-73) 43% (31-73) Lymphocytes (%) (Auto) 16% (24-48) 27% (24-48) Monocytes (%) (Auto) 7% (0-9) 8% (0-9) Eosinophils (%) (Auto) 17% (0-3) 22% (0-3) Basophils (%) (Auto) 1% (0-3) 1% (0-3) Neutrophils # (Auto) 5.6x10^3uL (1.8-7.7) 3.0x10^3uL (1.8-7.7) Lymphocytes # (Auto) 1.5x10^3/uL (1.0-4.8) 1.8x10^3/uL (1.0-4.8) Monocytes # (Auto) 0.7x10^3/uL (0.0-1.1) 0.6x10^3/uL (0.0-1.1) Eosinophils # (Auto) 1.6x10^3/uL (0.0-0.7) 1.5x10^3/uL (0.0-0.7) Basophils # (Auto) 0.1x10^3/uL (0.0-0.2) 0.0x10^3/uL (0.0-0.2) Sodium Level 140mmol/L (136-145) 140mmol/L (136-145) Potassium Level 4.7mmol/L (3.5-5.1) 4.0mmol/L (3.5-5.1) Chloride Level 105mmol/L (98-107) 105mmol/L (98-107) Carbon Dioxide Level 24mmol/L (21-32) 26mmol/L (21-32) Anion Gap 11 (6-14) 9 (6-14) Blood Urea Nitrogen 16mg/dL (8-26) 10mg/dL (8-26) Creatinine 1.0mg/dL (0.7-1.3) 1.2mg/dL (0.7-1.3) Estimated GFR (Cockcroft-Gault) 86.1 69.7 Glucose Level 115mg/dL (70-99) 77mg/dL (70-99) Calcium Level 8.9mg/dL (8.5-10.1) 8.5mg/dL (8.5-10.1) Total Bilirubin 0.2mg/dL (0.2-1.0) Direct Bilirubin < 0.1mg/dL (0.0-0.2) Aspartate Amino Transf (AST/SGOT) 17U/L (15-37) Alanine Aminotransferase (ALT/SGPT) 20U/L (16-63) Alkaline Phosphatase 91U/L (46-116) Total Protein 6.7g/dL (6.4-8.2) Albumin 3.6g/dL (3.4-5.0) Lipase 151U/L (73-393) Segmented Neutrophils % 42% (35-66) Lymphocytes % 28% (24-48) Monocytes % 8% (0-10) Eosinophils % 22% (0-5) Platelet Estimate Adequate (ADEQUATE) Anisocytosis Slight Iron Level 28ug/dL (65-175) Total Iron Binding Capacity 369ug/dL (250-450) Iron Saturation 8% (15-34) Vitamin B12 Level 279pg/mL (247-911) Serum Folate 14.17ng/ml (3.2-20.0) Assessment and Plan Assessmemt and Plan Problems Medical Problems: (1) Abdominal pain Status: Acute (2) C. difficile colitis Status: Acute (3) Diarrhea Status: Acute Problems: Comment Review of Relevant I have reviewed the following items héctor (where applicable) has been applied. Labs Laboratory Tests Test 08/06/16 16:50 08/07/16 04:30 White Blood Count 9.4x10^3/uL (4.0-11.0) 7.0x10^3/uL (4.0-11.0) Red Blood Count 4.89x10^6/uL (4.30-5.70) 4.62x10^6/uL (4.30-5.70) Hemoglobin 12.5g/dL (13.0-17.5) 11.8g/dL (13.0-17.5) Hematocrit 39.2% (39.0-53.0) 37.7% (39.0-53.0) Mean Corpuscular Volume 80fL (79-100) 82fL (79-100) Mean Corpuscular Hemoglobin 26pg (25-35) 25pg (25-35) Mean Corpuscular Hemoglobin Concent 32g/dL (31-37) 31g/dL (31-37) Red Cell Distribution Width 18.4% (11.5-14.5) 18.7% (11.5-14.5) Platelet Count 352x10^3/uL (140-400) 314x10^3/uL (140-400) Neutrophils (%) (Auto) 60% (31-73) 43% (31-73) Lymphocytes (%) (Auto) 16% (24-48) 27% (24-48) Monocytes (%) (Auto) 7% (0-9) 8% (0-9) Eosinophils (%) (Auto) 17% (0-3) 22% (0-3) Basophils (%) (Auto) 1% (0-3) 1% (0-3) Neutrophils # (Auto) 5.6x10^3uL (1.8-7.7) 3.0x10^3uL (1.8-7.7) Lymphocytes # (Auto) 1.5x10^3/uL (1.0-4.8) 1.8x10^3/uL (1.0-4.8) Monocytes # (Auto) 0.7x10^3/uL (0.0-1.1) 0.6x10^3/uL (0.0-1.1) Eosinophils # (Auto) 1.6x10^3/uL (0.0-0.7) 1.5x10^3/uL (0.0-0.7) Basophils # (Auto) 0.1x10^3/uL (0.0-0.2) 0.0x10^3/uL (0.0-0.2) Sodium Level 140mmol/L (136-145) 140mmol/L (136-145) Potassium Level 4.7mmol/L (3.5-5.1) 4.0mmol/L (3.5-5.1) Chloride Level 105mmol/L (98-107) 105mmol/L (98-107) Carbon Dioxide Level 24mmol/L (21-32) 26mmol/L (21-32) Anion Gap 11 (6-14) 9 (6-14) Blood Urea Nitrogen 16mg/dL (8-26) 10mg/dL (8-26) Creatinine 1.0mg/dL (0.7-1.3) 1.2mg/dL (0.7-1.3) Estimated GFR (Cockcroft-Gault) 86.1 69.7 Glucose Level 115mg/dL (70-99) 77mg/dL (70-99) Calcium Level 8.9mg/dL (8.5-10.1) 8.5mg/dL (8.5-10.1) Total Bilirubin 0.2mg/dL (0.2-1.0) Direct Bilirubin < 0.1mg/dL (0.0-0.2) Aspartate Amino Transf (AST/SGOT) 17U/L (15-37) Alanine Aminotransferase (ALT/SGPT) 20U/L (16-63) Alkaline Phosphatase 91U/L (46-116) Total Protein 6.7g/dL (6.4-8.2) Albumin 3.6g/dL (3.4-5.0) Lipase 151U/L (73-393) Segmented Neutrophils % 42% (35-66) Lymphocytes % 28% (24-48) Monocytes % 8% (0-10) Eosinophils % 22% (0-5) Platelet Estimate Adequate (ADEQUATE) Anisocytosis Slight Iron Level 28ug/dL (65-175) Total Iron Binding Capacity 369ug/dL (250-450) Iron Saturation 8% (15-34) Vitamin B12 Level 279pg/mL (247-911) Serum Folate 14.17ng/ml (3.2-20.0) Laboratory Tests Test 08/06/16 16:50 08/07/16 04:30 White Blood Count 9.4x10^3/uL (4.0-11.0) 7.0x10^3/uL (4.0-11.0) Red Blood Count 4.89x10^6/uL (4.30-5.70) 4.62x10^6/uL (4.30-5.70) Hemoglobin 12.5g/dL (13.0-17.5) 11.8g/dL (13.0-17.5) Hematocrit 39.2% (39.0-53.0) 37.7% (39.0-53.0) Mean Corpuscular Volume 80fL (79-100) 82fL (79-100) Mean Corpuscular Hemoglobin 26pg (25-35) 25pg (25-35) Mean Corpuscular Hemoglobin Concent 32g/dL (31-37) 31g/dL (31-37) Red Cell Distribution Width 18.4% (11.5-14.5) 18.7% (11.5-14.5) Platelet Count 352x10^3/uL (140-400) 314x10^3/uL (140-400) Neutrophils (%) (Auto) 60% (31-73) 43% (31-73) Lymphocytes (%) (Auto) 16% (24-48) 27% (24-48) Monocytes (%) (Auto) 7% (0-9) 8% (0-9) Eosinophils (%) (Auto) 17% (0-3) 22% (0-3) Basophils (%) (Auto) 1% (0-3) 1% (0-3) Neutrophils # (Auto) 5.6x10^3uL (1.8-7.7) 3.0x10^3uL (1.8-7.7) Lymphocytes # (Auto) 1.5x10^3/uL (1.0-4.8) 1.8x10^3/uL (1.0-4.8) Monocytes # (Auto) 0.7x10^3/uL (0.0-1.1) 0.6x10^3/uL (0.0-1.1) Eosinophils # (Auto) 1.6x10^3/uL (0.0-0.7) 1.5x10^3/uL (0.0-0.7) Basophils # (Auto) 0.1x10^3/uL (0.0-0.2) 0.0x10^3/uL (0.0-0.2) Sodium Level 140mmol/L (136-145) 140mmol/L (136-145) Potassium Level 4.7mmol/L (3.5-5.1) 4.0mmol/L (3.5-5.1) Chloride Level 105mmol/L (98-107) 105mmol/L (98-107) Carbon Dioxide Level 24mmol/L (21-32) 26mmol/L (21-32) Anion Gap 11 (6-14) 9 (6-14) Blood Urea Nitrogen 16mg/dL (8-26) 10mg/dL (8-26) Creatinine 1.0mg/dL (0.7-1.3) 1.2mg/dL (0.7-1.3) Estimated GFR (Cockcroft-Gault) 86.1 69.7 Glucose Level 115mg/dL (70-99) 77mg/dL (70-99) Calcium Level 8.9mg/dL (8.5-10.1) 8.5mg/dL (8.5-10.1) Total Bilirubin 0.2mg/dL (0.2-1.0) Direct Bilirubin < 0.1mg/dL (0.0-0.2) Aspartate Amino Transf (AST/SGOT) 17U/L (15-37) Alanine Aminotransferase (ALT/SGPT) 20U/L (16-63) Alkaline Phosphatase 91U/L (46-116) Total Protein 6.7g/dL (6.4-8.2) Albumin 3.6g/dL (3.4-5.0) Lipase 151U/L (73-393) Segmented Neutrophils % 42% (35-66) Lymphocytes % 28% (24-48) Monocytes % 8% (0-10) Eosinophils % 22% (0-5) Platelet Estimate Adequate (ADEQUATE) Anisocytosis Slight Iron Level 28ug/dL (65-175) Total Iron Binding Capacity 369ug/dL (250-450) Iron Saturation 8% (15-34) Vitamin B12 Level 279pg/mL (247-911) Serum Folate 14.17ng/ml (3.2-20.0) Medications Current Medications Sodium Chloride (Iv Sodium Chloride 0.9% 1000ml Bag) 1,000 ml @ 1,000 mls/hr Q1H IV Last administered on 08/06/16 17:02; Start 08/06/16 at 16:17; Stop at 17:16; Status DC Hydromorphone HCl (Dilaudid) 1 mg 1X ONCE IV Last administered on 08/06/16 17 :03; Start 08/06/16 at 16:30; Stop 08/06/16 at 16:31; Status DC Ondansetron HCl (Zofran) 4 mg 1X ONCE IV Last administered on 08/06/16 17:03 ; Start 08/06/16 at 16:30; Stop 08/06/16 at 16:31; Status DC Ondansetron HCl 4 mg 4 mg PRN Q8HRS PRN IV NAUSEA/VOMITING Last administered on 08/06/16 18:43; Start 08/06/16 at 17:30; Stop 08/06/16 at 22:00; Status DC Sodium Chloride (Iv Sodium Chloride 0.9% 1000ml Bag) 1,000 ml @ 125 mls/hr Q8H IV Last administered on 08/07/16 10:42; Start 08/06/16 at 17:27; Stop at 17:26 Acetaminophen (Tylenol) 650 mg PRN Q4HRS PRN PO FEVER; Start 08/06/16 at 17:30 ; Stop 08/07/16 at 17:29 Hydromorphone HCl (Dilaudid) 1 mg PRN Q2HR PRN IV PAIN SEVERE Last administered on 08/06/16 20:49; Start 08/06/16 at 17:30; Stop 08/06/16 at 20:57 ; Status DC Hydromorphone HCl (Dilaudid) 1 mg 1X ONCE IV Last administered on 08/06/16 17 :54; Start 08/06/16 at 17:45; Stop 08/06/16 at 17:46; Status DC Vancomycin HCl 250 mg [id number] PO Last administered on 08/07/16 13:30; Start at 23:00 Vancomycin HCl 250 mg ONCE ONCE PO ; Start 08/06/16 at 18:00; Stop 08/06/16 at 18:00; Status DC Vancomycin HCl 250 mg ONCE ONCE PO Last administered on 08/06/16 18:16; Start 08/06/16 at 18:00; Stop 08/06/16 at 18:01; Status DC Non-Formulary Medication 1 puff PRN Q4HRS PRN IH SHORTNESS OF BREATH; Start at 21:00; Status UNV Non-Formulary Medication 2 puff BID IH ; Start 08/06/16 at 21:00; Status UNV Ondansetron HCl (Zofran Odt) 4 mg PRN Q8HRS PRN PO NAUSEA; Start 08/06/16 at 21 :00 Oxycodone/ Acetaminophen (Percocet 10/325) 1 tab PRN Q4HRS PRN PO SEVERE PAIN Last administered on 08/07/16 10:42; Start 08/06/16 at 21:00 Hydromorphone HCl (Dilaudid) 1 mg PRN Q4HRS PRN IVP SEVERE PAIN Last administered on 08/07/16 08:11; Start 08/06/16 at 21:00; Stop 08/07/16 at 11:11 ; Status DC Budesonide (Pulmicort) 0.5 mg RTBID NEB Last administered on 08/07/16 07:28; Start 08/07/16 at 08:00 Albuterol Sulfate (Ventolin Neb Soln) 2.5 mg RTQID NEB Last administered on 11:44; Start 08/07/16 at 08:00 Albuterol Sulfate (Ventolin Neb Soln) 2.5 mg PRN Q4HRS PRN NEB SHORTNESS OF BREATH Last administered on 08/06/16 22:23; Start 08/06/16 at 21:00 Famotidine (Pepcid) 20 mg BID PO Last administered on 08/07/16 08:10; Start at 22:00 Bismuth Subsalicylate (Pepto-Bismol) 262 mg PRN Q1HR PRN PO DIARRHEA; Start at 21:45; Status UNV Nicotine (Nicoderm Cq 14mg) 1 patch PRN DAILY PRN TD SMOKING CESSATION; Start 08/06/16 at 21:45 Ondansetron HCl (Zofran) 8 mg PRN Q8HRS PRN IV NAUSEA/VOMITING Last administered on 08/07/16 08:16; Start 08/06/16 at 22:00 Metoclopramide HCl (Reglan) 5 mg PRN BFRMEALHC PRN PO NAUSEA/VOMITING; Start at 22:00; Status UNV Diphenhydramine HCl (Benadryl) 25 mg PRN Q6HRS PRN PO ITCHING Last administered on 08/06/16 22:44; Start 08/06/16 at 22:00 Polysaccharide Iron Complex (Niferex 150) 150 mg DAILY PO Last administered on 08/07/16 10:42; Start 08/07/16 at 10:30 Vitamin B Complex 1 tab 1 tab DAILY PO Last administered on 08/07/16 13:30; Start 08/07/16 at 11:15 Lactated Ringer's (Iv Lactated Ringers) 1,000 ml @ 50 mls/hr Q20H IV ; Start at 07:00; Stop 08/08/16 at 18:59 Hydromorphone HCl (Dilaudid) 1 mg PRN Q2HR PRN IVP PAIN Last administered on 13:31; Start 08/07/16 at 13:15 Active Scripts Active Metronidazole 500 Mg Tablet 1 Tab PO TID [place] 5-325 Tablet (Acetaminophen/Hydrocodone Bitart) 1 Each Tablet 1 Tab PO PRN Q6HRS PRN Zofran (Ondansetron Hcl) 4 Mg Tablet 1 Tab PO Q8HRS PRN Reported Proventil Hfa Inhaler (Albuterol Sulfate) 6.7 Gm Hfa.aer.ad 1 Puff IH PRN Q4HRS PRN Symbicort 160-4.5 Mcg Inhaler (Budesonide/Formoterol Fumarate) 10.2 Gm Hfa.aer.ad 2 Puff IH BID Vitals/I & O Vital Sign - Last 24 Hours 08/06/16 08/06/16 08/06/16 08/06/16 16:25 17:03 18:20 18:44 Temp 98.0 98.0 Pulse 114 95 Resp 16 16 16 B/P 141/104 150/99 Pulse Ox 99 100 O2 Delivery Room Air Room Air Room Air 08/06/16 08/06/16 08/06/16 08/06/16 19:00 19:14 20:00 20:49 Temp 98.0 98.0 Pulse 90 Resp 18 20 B/P 137/90 Pulse Ox 96 100 100 O2 Delivery Room Air Room Air Room Air 08/06/16 08/06/16 08/06/16 08/06/16 22:02 22:25 22:45 22:50 Pulse 99 Resp 18 18 18 B/P 137/94 Pulse Ox 95 95 O2 Delivery Room Air Room Air Room Air Room Air 08/07/16 08/07/16 08/07/16 08/07/16 03:00 03:29 03:29 04:40 Temp 97.9 97.9 Pulse 91 Resp 18 18 18 18 B/P 134/88 Pulse Ox 98 98 98 98 O2 Delivery Room Air Room Air Room Air 08/07/16 08/07/16 08/07/16 08/07/16 04:40 07:00 07:29 08:00 Temp 98.4 98.4 Pulse 74 Resp 18 16 B/P 121/76 Pulse Ox 98 99 99 O2 Delivery Room Air Room Air Room Air 08/07/16 08/07/16 08/07/16 08/07/16 08:11 08:45 10:42 11:00 Temp 97.8 97.8 Pulse 95 Resp 16 B/P 138/92 Pulse Ox 98 O2 Delivery Room Air Room Air Room Air Room Air 08/07/16 08/07/16 08/07/16 11:45 11:45 13:31 O2 Delivery Room Air Room Air Room Air Intake and Output 08/06/16 08/06/16 08/07/16 15:00 23:00 07:00 Intake Total 640 ml Output Total 1000 ml Balance -360 ml CARA JONES MD Aug 07, 2016 14:00
[2016-08-07 15:00] VITALS: BP 132/87
[2016-08-07 18:26] LABS: BILIRUBIN,URINE NEGATIVE (NEG); GLUCOSE,URINE NEGATIVE (NEG); NITRITE,URINE NEGATIVE (NEG); PH,URINE 6.5; PROTEIN,URINE NEGATIVE (NEG-TRACE); UROBILINOGEN,URINE 0.2 mg/dL (0.2 mg/dL)
[2016-08-07 18:32] LABS: BARBITURATES NEG (NEG); BENZODIAZEPINES NEG (NEG); CANNABINOIDS NEG (NEG); COCAINE NEG (NEG); METHADONE NEG (NEG); OPIATES POS (NEG); PHENCYCLIDINE NEG (NEG)
[2016-08-07 18:33] LABS: ETHANOL, URINE NEG (NEG)
[2016-08-07 18:35] LABS: BACTERIA,URINE 0 /HPF (0-FEW); RBC,URINE 0 /HPF (0-2); WBC,URINE 0 /HPF (0-4)
[2016-08-07 19:00] VITALS: BP 142/84
[2016-08-07 23:00] VITALS: BP 146/86
[2016-08-08] MEDS: DIPHENHYDRAMINE HCL 25 MG CAPSULE PO PRN (01:22)
[2016-08-08] MEDS: OXYCODONE/APAP 10/325 TABLET. PO PRN (01:22)
[2016-08-08] MEDS: HYDROMORPHONE 2 MG/ML VIAL. IVP PRN ×4 (01:22→14:03)
[2016-08-08] MEDS: ALBUTEROL SULFATE 2.5 MG/3 ML NEBU. NEB SCH ×3 (02:54→15:55)
[2016-08-08 03:00] VITALS: BP 124/83
--- NOTE | 2016-08-08 03:14 | CONS ---
DATE OF CONSULTATION: 08/07/2016 REQUESTING PHYSICIAN: Dr. Negrete. REASON FOR CONSULTATION: C. diff. HISTORY OF PRESENT ILLNESS: This is a 35-year-old gentleman with history of C. diff four months ago, who came in with abdominal pain, had diarrhea. The patient has been started on vancomycin. They have not been able to obtain a specimen. Evidently, he had 4 stools yesterday, but now today, he had one stool, he says it was a hard stool. The patient is otherwise fine. Denies any nausea or vomiting. Denies any urinary symptoms. Denies any headache or visual symptoms. Denies any fever or chills. The patient is on p.o. vancomycin. PAST MEDICAL HISTORY: ____ has had gallbladder surgery ____ he got C. 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 SOCIAL HISTORY: Positive for smoking. No alcohol use or drug use. ALLERGIES: MULTIPLE MEDICATION ALLERGY LIST REVIEWED. CURRENT MEDICATIONS: Reviewed. The patient is on p.o. vancomycin. REVIEW OF SYSTEMS: As per HPI, all other systems reviewed are negative. PHYSICAL EXAMINATION: GENERAL: Alert, oriented gentleman, not in distress. VITAL SIGNS: Stable, afebrile. HEENT: The patient does have medial rectus weakness, paralysis. Rest of the HEENT, NAD. NECK: Supple. No JVP. No lymphadenopathy. LUNGS: Clear. HEART: S1, S2 regular. ABDOMEN: Benign. EXTREMITIES: No edema or cyanosis. SKIN: Unremarkable. NEUROLOGIC: The patient is neurologically intact. LABORATORY DATA: White count is normal. BUN and creatinine are normal. IMPRESSION: History of Clostridium difficile, has resolved. The patient does not need any more treatment for Clostridium difficile. RECOMMENDATIONS: The patient can be discharged from the infectious disease standpoint of view. Thank you very much, Dr. Negrete for giving me the opportunity to participate in this patient's care. GARY LOPEZ MD DR: SILAS/keely JOB#: [id number] / [id number]
[2016-08-08] MEDS ORDERED: IV RINGERS,LACTATED 1000ML 1,000 ML IV SCH ×2 (07:00→13:02)
[2016-08-08 07:45] VITALS: BP 114/69
[2016-08-08] MEDS: BUDESONIDE 0.5 MG/2 ML NEBU NEB SCH (08:26)
[2016-08-08] MEDS: ALBUTEROL SULFATE 2.5 MG/3 ML NEBU. NEB PRN (08:26)
[2016-08-08] MEDS: FAMOTIDINE 20 MG TABLET. PO SCH (09:00)
[2016-08-08] MEDS: VITAMIN B12,B9,B6 COMPLEX 1 TABLET. PO SCH (09:00)
[2016-08-08] MEDS: IRON POLYSACCHARIDE COMPLEX 150 MG CAPSULE PO SCH (09:00)
[2016-08-08] MEDS: VANCOMYCIN 250 MG/5 ML ORAL SOLUTION. PO SCH ×2 (09:00→13:00)
[2016-08-08 10:45] VITALS: BP 125/81
[2016-08-08] MEDS ORDERED: HYDR-971 PO (10:54)
[2016-08-08] MEDS ORDERED: FERR-26 PO (10:56)
[2016-08-08] MEDS ORDERED: PROPOFOL 20 ML IV ONE (12:56)
[2016-08-08] MEDS ORDERED: LIDOCAINE 2% PF Vial for OR 5 ML VIAL. ONE (12:56)
[2016-08-08] MEDS ORDERED: LIDOCAINE 1% 1 ML SYRINGE. ID PRN (13:15)
[2016-08-08] MEDS ORDERED: FENTANYL PF 100 MCG/2 ML VIAL. IV PRN ×2 (13:15)
[2016-08-08] MEDS ORDERED: MIDAZOLAM HCL 2 MG/2 ML VIAL. IV PRN (13:15)
--- NOTE | 2016-08-08 13:33 | PDOC4 ---
PROCEDURE Procedure EGD/biopsies Indication: KRYSTAL/abdominal pain Meds: per anesthesia Findings: -2 inlet patches, upper esophagus -Grade I reflux esophagitis 39-40cm -Normal stomach; antrum biopsied. -Normal duodenum to fourth portion; 4th and second portions biopsied. Tolerated well. IMP: reflux esophagitis, otherwise normal exam. incidental "inlet patches". REC: await biopsies. will discuss colonoscopy; can do tomorrow if he's willing. advance diet if no colonoscopy Thanks. STUART DELACRUZ MD Aug 08, 2016 13:33
[2016-08-08 14:50] VITALS: BP 133/82
--- NOTE | 2016-08-08 15:33 | PDOC3 ---
Discharge Summary Visit Information Date of Admission: Aug 06, 2016 Date of Discharge: Aug 08, 2016 Admitting Diagnosis: abd pain Final Diagnosis abd pain, RUQ, severe, LFT normal, no stool since admit iron deficiency b12 lowish anemia w. abd pain tobacco use, chew asthma, Problems Medical Problems: (1) Abdominal pain Status: Acute (2) C. difficile colitis Status: Acute (3) Diarrhea Status: Acute Brief Hospital Course Allergies Allergies Coded Allergies Type Severity Reaction Last Updated Verified NSAIDS (Non-Steroidal Anti-Inflamma Allergy Severe Anaphylaxis 08/08/16 Yes chlorpheniramine Allergy Intermediate 08/08/16 Yes levofloxacin Allergy Intermediate 08/08/16 Yes lorazepam Allergy Intermediate 08/08/16 Yes metoclopramide Allergy Intermediate 08/08/16 Yes phenylephrine Allergy Intermediate 08/08/16 Yes scopolamine Allergy Intermediate 08/08/16 Yes tramadol Allergy Intermediate 08/08/16 Yes Vital Signs Vital Signs Date Time Temp Pulse Resp B/P Pulse Ox O2 Delivery O2 Flow Rate FiO2 08/08/16 14:03 Room Air 08/08/16 13:41 76 20 121/82 100 08/08/16 13:24 97.9 97.9 Lab Results Laboratory Tests Test 08/06/16 16:50 08/07/16 04:30 08/07/16 18:15 White Blood Count 9.4x10^3/uL (4.0-11.0) 7.0x10^3/uL (4.0-11.0) Red Blood Count 4.89x10^6/uL (4.30-5.70) 4.62x10^6/uL (4.30-5.70) Hemoglobin 12.5g/dL (13.0-17.5) 11.8g/dL (13.0-17.5) Hematocrit 39.2% (39.0-53.0) 37.7% (39.0-53.0) Mean Corpuscular Volume 80fL (79-100) 82fL (79-100) Mean Corpuscular Hemoglobin 26pg (25-35) 25pg (25-35) Mean Corpuscular Hemoglobin Concent 32g/dL (31-37) 31g/dL (31-37) Red Cell Distribution Width 18.4% (11.5-14.5) 18.7% (11.5-14.5) Platelet Count 352x10^3/uL (140-400) 314x10^3/uL (140-400) Neutrophils (%) (Auto) 60% (31-73) 43% (31-73) Lymphocytes (%) (Auto) 16% (24-48) 27% (24-48) Monocytes (%) (Auto) 7% (0-9) 8% (0-9) Eosinophils (%) (Auto) 17% (0-3) 22% (0-3) Basophils (%) (Auto) 1% (0-3) 1% (0-3) Neutrophils # (Auto) 5.6x10^3uL (1.8-7.7) 3.0x10^3uL (1.8-7.7) Lymphocytes # (Auto) 1.5x10^3/uL (1.0-4.8) 1.8x10^3/uL (1.0-4.8) Monocytes # (Auto) 0.7x10^3/uL (0.0-1.1) 0.6x10^3/uL (0.0-1.1) Eosinophils # (Auto) 1.6x10^3/uL (0.0-0.7) 1.5x10^3/uL (0.0-0.7) Basophils # (Auto) 0.1x10^3/uL (0.0-0.2) 0.0x10^3/uL (0.0-0.2) Sodium Level 140mmol/L (136-145) 140mmol/L (136-145) Potassium Level 4.7mmol/L (3.5-5.1) 4.0mmol/L (3.5-5.1) Chloride Level 105mmol/L (98-107) 105mmol/L (98-107) Carbon Dioxide Level 24mmol/L (21-32) 26mmol/L (21-32) Anion Gap 11 (6-14) 9 (6-14) Blood Urea Nitrogen 16mg/dL (8-26) 10mg/dL (8-26) Creatinine 1.0mg/dL (0.7-1.3) 1.2mg/dL (0.7-1.3) Estimated GFR (Cockcroft-Gault) 86.1 69.7 Glucose Level 115mg/dL (70-99) 77mg/dL (70-99) Calcium Level 8.9mg/dL (8.5-10.1) 8.5mg/dL (8.5-10.1) Total Bilirubin 0.2mg/dL (0.2-1.0) Direct Bilirubin < 0.1mg/dL (0.0-0.2) Aspartate Amino Transf (AST/SGOT) 17U/L (15-37) Alanine Aminotransferase (ALT/SGPT) 20U/L (16-63) Alkaline Phosphatase 91U/L (46-116) Total Protein 6.7g/dL (6.4-8.2) Albumin 3.6g/dL (3.4-5.0) Lipase 151U/L (73-393) Segmented Neutrophils % 42% (35-66) Lymphocytes % 28% (24-48) Monocytes % 8% (0-10) Eosinophils % 22% (0-5) Platelet Estimate Adequate (ADEQUATE) Anisocytosis Slight Iron Level 28ug/dL (65-175) Total Iron Binding Capacity 369ug/dL (250-450) Iron Saturation 8% (15-34) Vitamin B12 Level 279pg/mL (247-911) Serum Folate 14.17ng/ml (3.2-20.0) Urine Collection Type Unknown Urine Color Yellow Urine Clarity Clear Urine pH 6.5 Urine Specific Rudy <=1.005 Urine Protein Negativemg/dL (NEG-TRACE) Urine Glucose (UA) Negativemg/dL (NEG) Urine Ketones (Stick) Negativemg/dL (NEG) Urine Blood Negative (NEG) Urine Nitrite Negative (NEG) Urine Bilirubin Negative (NEG) Urine Urobilinogen Dipstick 0.2mg/dL (0.2 mg/dL) Urine Leukocyte Esterase Negative (NEG) Urine RBC 0/HPF (0-2) Urine WBC 0/HPF (0-4) Urine Squamous Epithelial Cells None/LPF Urine Bacteria 0/HPF (0-FEW) Urine Mucus Slight/LPF Urine Opiates Screen Pos (NEG) Urine Methadone Screen Neg (NEG) Urine Barbiturates Neg (NEG) Urine Phencyclidine Screen Neg (NEG) Urine Amphetamine/Methamphetamine Neg (NEG) Urine Benzodiazepines Screen Neg (NEG) Urine Cocaine Screen Neg (NEG) Urine Cannabinoids Screen Neg (NEG) Urine Ethyl Alcohol Neg (NEG) Laboratory Tests Test 08/07/16 18:15 Urine Collection Type Unknown Urine Color Yellow Urine Clarity Clear Urine pH 6.5 Urine Specific Rudy <=1.005 Urine Protein Negativemg/dL (NEG-TRACE) Urine Glucose (UA) Negativemg/dL (NEG) Urine Ketones (Stick) Negativemg/dL (NEG) Urine Blood Negative (NEG) Urine Nitrite Negative (NEG) Urine Bilirubin Negative (NEG) Urine Urobilinogen Dipstick 0.2mg/dL (0.2 mg/dL) Urine Leukocyte Esterase Negative (NEG) Urine RBC 0/HPF (0-2) Urine WBC 0/HPF (0-4) Urine Squamous Epithelial Cells None/LPF Urine Bacteria 0/HPF (0-FEW) Urine Mucus Slight/LPF Urine Opiates Screen Pos (NEG) Urine Methadone Screen Neg (NEG) Urine Barbiturates Neg (NEG) Urine Phencyclidine Screen Neg (NEG) Urine Amphetamine/Methamphetamine Neg (NEG) Urine Benzodiazepines Screen Neg (NEG) Urine Cocaine Screen Neg (NEG) Urine Cannabinoids Screen Neg (NEG) Urine Ethyl Alcohol Neg (NEG) Brief Hospital Course Mr. Christianson is a 35 old w. severe abd pain RUQ with diarrhea, resolved on admit s/p chasidy labs OK pain persisted, Iron deficiency, he wanted pain meds repeatedly, preferred IV meds, and left AMA anyway EGD IMP: reflux esophagitis, otherwise normal exam. incidental "inlet patches". Discharge Information Condition at Discharge: Improved Follow Up: Weeks Disposition/Orders: D/C to Home Scheduled Budesonide/Formoterol Fumarate (Symbicort 160-4.5 Mcg Inhaler) 2 PUFF IH BID ( Reported) Ferrous Sulfate (Ferrous Sulfate) 1 TAB PO DAILY Metronidazole (Metronidazole) 1 TAB PO TID Scheduled PRN Albuterol Sulfate (Proventil Hfa Inhaler) 1 PUFF IH PRN Q4HRS PRN PRN SHORTNESS OF BREATH (Reported) Hydrocodone/Apap 5-325 ([place] 5-325 Tablet) 1 TAB PO PRN Q6HRS PRN PRN PAIN Ondansetron Hcl (Zofran) 1 TAB PO Q8HRS PRN PRN NAUSEA Patient Instructions Patient Instructions f.u CARA South MD Aug 08, 2016 15:32
[2016-08-08] MEDS ORDERED: BUDESONIDE 0.5 MG/2 ML NEBU. NEB SCH (20:00)
[2016-08-09] MEDS ORDERED: IV RINGERS,LACTATED 1000ML 1,000 ML IV SCH (07:00)
[2016-08-09] MEDS ORDERED: PROCHLORPERAZINE 10 MG/2 ML VIAL. IV PRN (07:00)
[2016-08-09] MEDS ORDERED: ONDANSETRON PF 4 MG/2 ML VIAL. IV PRN (07:00)
[2016-08-09] MEDS ORDERED: LIDOCAINE 1% 1 ML SYRINGE. ID PRN (07:00)
[2016-08-09] MEDS ORDERED: FENTANYL PF 100 MCG/2 ML VIAL. IV PRN ×2 (07:00)
--- NOTE | 2016-08-09 13:48 | PATHOLOGY ---
PATHOLOGY REPORT * * * * * * * * FINAL DIAGNOSIS: A. Duodenal random biopsy, distal duodenum: - No significant pathologic abnormalities. B. Duodenal biopsy, second portion duodenum: - No significant pathologic abnormalities. C. Gastric biopsy, antrum: - Chronic gastritis, mild to moderate. COMMENT: Sections of the distal duodenal random biopsy reveal segments of small intestine mucosa. Where best oriented, the mucosal villi appear normal. There are no sprue-like changes or significant inflammatory changes. Sections of the second part duodenum biopsy reveal segments of duodenal and small intestine mucosa. Where best oriented, the mucosal villi appear normal. There are no sprue-like changes or significant inflammatory changes. Sections of the gastric antral biopsy show congestion and mild to focal moderate chronic inflammation with a few scattered admixed eosinophils. An immunoperoxidase stain for Helicobacter is obtained. No Helicobacter organisms are identified. (JPM:[email or web address]; d/t: 08/09/16) Special Stain: Helicobacter pylori (C) REPORT ELECTRONICALLY SIGNED BY: Jed Cartwright M.D. DATE/TIME: 08/09/2016 13:48 * * * * * * * * GROSS PATHOLOGY: A. Received in formalin labeled "Sammy, Jose and distal duodenum random bx's," are 5 segments of hope soft tissue measuring 2.0 x 0.3 x 0.2 cm in aggregate dimensions and ranging from 0.2 to 0.6 cm in maximum dimension. The specimen is submitted entirely in cassette A1. B. Received in formalin labeled "Sammy, Jose and second part duodenum," are 4 segments of hope soft tissue measuring 1.9 x 0.2 x 0.2 cm in aggregate dimensions and ranging from 0.2 to 0.6 cm in maximum dimension. The specimen is submitted entirely in cassette B1. C. Received in formalin labeled "Sammy, Jose and antrum," are 2 segments of hope soft tissue measuring 0.9 x 0.3 x 0.2 cm in aggregate dimensions and measuring 0.4 and 0.5 cm in maximum dimension. The specimen is submitted entirely in cassette C1. (TTL; 08/08/2016) INITIAL CPT CODE(S): A; 88505 B; 98899 C; 75317, 99707 Professional services performed by [facility] [place] [address] Technical services performed by [facility] at [address] [place] [address], [address], [place] [address]. SPECIMEN(S) RECEIVED: A.Distal duodenum, random biopsy B.2nd portion duodenum C.Antrum CLINICAL HISTORY: Abdominal pain PATIENT: JOSE LUDWIG Jerri /AGE: 6 1980 (Age: 35) PATIENT #: [id number] ALT CASE #: SPECIMEN COLLECTION DATE: 08/08/2016 SPECIMEN RECEIVED DATE: 08/08/2016 [facility] - [address] [place] [address] - PHONE: [phone] * * * END OF REPORT * * *
== END 2016-08-08 15:50 | disposition home or self-care (01) | DRG 373 ==
LOC: ER 15:57 → 5 NORTH 17:27
PROVIDERS: ADMIT Internal Medicine; ATTEND Internal Medicine
DX: A04.7 Enterocolitis due to Clostridium difficile (principal); J45.909 Unspecified asthma, uncomplicated; Z72.0 Tobacco use; Z90.49 Acquired absence of other specified parts of digestive tract; K21.0 Gastro-esophageal reflux disease with esophagitis; R19.7 Diarrhea, unspecified; D64.9 Anemia, unspecified; E61.1 Iron deficiency; Z80.9 Family history of malignant neoplasm, unspecified; H54.42 Blindness, left eye, normal vision right eye; K52.81 Eosinophilic gastritis or gastroenteritis; Z88.6 Allergy status to analgesic agent; Z88.1 Allergy status to other antibiotic agents; Z88.8 Allergy status to other drugs, medicaments and biological substances
CPT/HCPCS: 36415; 80048; 80076; 81001; 82607; 82746; 83540; 83550; 83690; 85007; 85027; 94250; 94640; 94760; 96361; 96374; 96375; 96376; G0481; J1170; J2405; J2704; J7030; J7120; Q0163; 99285-25

== ENCOUNTER 2016-08-12 22:38 | Inpatient (IN) | payer SELFPAY ==
[~2016-08-12] VITALS: Ht 172.7 cm; Wt 70.3 kg
[~2016-08-12 22:38] MED LIST changes: +BUDE10.2 IH; +FERR-26 PO; +PROVENTIL HFA6.7 GM IH
[2016-08-12] MEDS ORDERED: IV NORMAL SALINE 1000ML BAG 1,000 ML IV SCH (23:30)
[2016-08-12] MEDS ORDERED: ONDANSETRON PF 4 MG/2 ML VIAL. IV ONE (23:30)
[2016-08-12 23:56] LABS: BASO # 0.1 x10^3/uL (0.0-0.2); BASO % 1 % (0-3); EOS % 14 % (0-3); HEMATOCRIT 39.5 % (39.0-53.0); HEMOGLOBIN 12.6 g/dL (13.0-17.5); LYMPH # 1.6 x10^3/uL (1.0-4.8); LYMPH % 19 % (24-48); MEAN CORPUSCULAR HEMOGLOBIN 26 pg (25-35); MEAN CORPUSCULAR HGB CONC 32 g/dL (31-37); MEAN CORPUSCULAR VOLUME 81 fL (79-100); MONO % 7 % (0-9); NEUT % 58 % (31-73); PLATELET COUNT 336 x10^3/uL (140-400); RED BLOOD COUNT 4.89 x10^6/uL (4.30-5.70); RED CELL DISTRIBUTION WIDTH 18.4 % (11.5-14.5); WHITE BLOOD COUNT 8.4 x10^3/uL (4.0-11.0)
[2016-08-12] MEDS: FENTANYL PF 100 MCG/2 ML VIAL. IV PRN (23:59)
[2016-08-13 00:06] LABS: GFR 86.1; POTASSIUM 3.8 mmol/L (3.5-5.1)
[2016-08-13 00:12] LABS: ALBUMIN 3.7 g/dL (3.4-5.0); ALBUMIN/GLOBULIN RATIO 1.2 (1.0-1.7); TOTAL BILIRUBIN 0.4 mg/dL (0.2-1.0); TOTAL PROTEIN 6.9 g/dL (6.4-8.2)
[2016-08-13 00:21] LABS: % EOS 9 % (0-5); PLT ESTIMATE ADEQUATE (ADEQUATE)
[2016-08-13] MEDS: FENTANYL PF 100 MCG/2 ML VIAL. IV PRN ×7 (00:30→09:32)
--- NOTE | 2016-08-13 00:38 | ED.ADGEN ---
Past Medical History Past Medical History: Asthma, Other Additional Past Medical Histor: C-DIFF Past Surgical History: Appendectomy, Cholecystectomy Additional Past Surgical Histo: NASAL, CYST ON RIGHT WRIST Alcohol Use: None Drug Use: None Adult General Chief Complaint Chief Complaint: ABDOMINAL PAIN HPI HPI Patient is a 35 year old man, history of asthma, C. difficile being treated currently with oral antibiotics and pain medications. Patient resents emergency department with complaint of worsening abdominal pain, nausea, vomiting and diarrhea, states for episodes of each over the past day. States his abdominal pain is worse. Patient states that he has not yet followed up with a primary care provider, was seen by Dr. Villanueva of GI while he was in the hospital, was discharged 2 days ago. Patient denies any fevers or chills, any new injuries, any sick contacts or exposures. States he has been taking medications as directed at home. Review of Systems Review of Systems Constitutional: Denies fever or chills. [] Eyes: Denies change in visual acuity. [] HENT: Denies nasal congestion or sore throat. [] Respiratory: Denies cough or shortness of breath. [] Cardiovascular: Denies chest pain or edema. [] GI: Crampy abdominal pain, nausea, vomiting, diarrhea. No bloody stools or bloody emesis. : Denies dysuria. [] Musculoskeletal: Denies back pain or joint pain. [] Integument: Denies rash. [] Neurologic: Denies headache, focal weakness or sensory changes. [] Endocrine: Denies polyuria or polydipsia. [] Lymphatic: Denies swollen glands. [] Psychiatric: Denies depression or anxiety. [] Current Medications Current Medications Current Medications Medications (Trade) Dose Ordered Sig/Sugar Start Time Stop Time Status Last Admin Dose Admin Albuterol/ Ipratropium (Duoneb) 3 ml 1X ONCE 08/13/16 00:45 08/13/16 00:46 DC 08/13/16 00:46 3 ML Fentanyl Citrate (Fentanyl 2ml Vial) 25 mcg PRN Q15MIN PRN 08/12/16 23:30 08/13/16 23:29 08/13/16 03:04 25 MCG Hydromorphone HCl (Dilaudid) 1 mg 1X ONCE 08/13/16 00:45 08/13/16 00:46 DC 08/13/16 00:56 1 MG Ondansetron HCl (Zofran) 4 mg 1X ONCE 08/12/16 23:30 08/12/16 23:31 DC 08/12/16 23:59 4 MG Sodium Chloride (Iv Sodium Chloride 0.9% 1000ml Bag) 1,000 ml @ 1,000 mls/hr Q1H 08/12/16 23:30 08/13/16 00:29 DC 08/12/16 23:58 1,000 MLS/HR Allergies Allergies Allergies Coded Allergies Type Severity Reaction Last Updated Verified NSAIDS (Non-Steroidal Anti-Inflamma Allergy Severe Anaphylaxis 08/09/16 Yes chlorpheniramine Allergy Intermediate 08/09/16 Yes levofloxacin Allergy Intermediate 08/09/16 Yes lorazepam Allergy Intermediate 08/09/16 Yes metoclopramide Allergy Intermediate 08/08/16 Yes phenylephrine Allergy Intermediate 08/08/16 Yes scopolamine Allergy Intermediate 08/08/16 Yes tramadol Allergy Intermediate 08/08/16 Yes Physical Exam Physical Exam Constitutional: Well developed, well nourished, no acute distress, non-toxic appearance. [] HENT: Normocephalic, atraumatic, bilateral external ears normal, oropharynx moist, no oral exudates, nose normal. [] Eyes: PERRLA, EOMI, conjunctiva normal, no discharge. [] Neck: Normal range of motion, no tenderness, supple, no stridor. [] Cardiovascular:Heart rate regular rhythm, no murmur, S1, S2, rubs or gallops. [] Lungs & Thorax: Bilateral breath sounds clear to auscultation [] Abdomen: Bowel sounds normal, soft, mild tenderness palpation in the periumbilical region, no rebound, rigidity, no guarding, no masses, no pulsatile masses. [] Skin: Warm, dry, no erythema, no rash. [] Back: No tenderness, no CVA tenderness. [] Extremities: No tenderness, no cyanosis, no clubbing, ROM intact, no edema. [] Neurologic: Alert and oriented X 3, normal motor function, normal sensory function, no focal deficits noted. [] Psychologic: Affect normal, judgement normal, mood normal. [] Current Patient Data Vital Signs Vital Signs Date Time Temp Pulse Resp B/P Pulse Ox O2 Delivery O2 Flow Rate FiO2 08/13/16 02:00 90 21 152/109 96 Room Air 08/12/16 22:47 98.4 98.4 Lab Values Laboratory Tests Test 08/12/16 23:50 White Blood Count 8.4x10^3/uL (4.0-11.0) Red Blood Count 4.89x10^6/uL (4.30-5.70) Hemoglobin 12.6g/dL (13.0-17.5) L Hematocrit 39.5% (39.0-53.0) Mean Corpuscular Volume 81fL (79-100) Mean Corpuscular Hemoglobin 26pg (25-35) Mean Corpuscular Hemoglobin Concent 32g/dL (31-37) Red Cell Distribution Width 18.4% (11.5-14.5) H Platelet Count 336x10^3/uL (140-400) Neutrophils (%) (Auto) 58% (31-73) Lymphocytes (%) (Auto) 19% (24-48) L Monocytes (%) (Auto) 7% (0-9) Eosinophils (%) (Auto) 14% (0-3) H Basophils (%) (Auto) 1% (0-3) Neutrophils # (Auto) 4.9x10^3uL (1.8-7.7) Lymphocytes # (Auto) 1.6x10^3/uL (1.0-4.8) Monocytes # (Auto) 0.6x10^3/uL (0.0-1.1) Eosinophils # (Auto) 1.2x10^3/uL (0.0-0.7) H Basophils # (Auto) 0.1x10^3/uL (0.0-0.2) Segmented Neutrophils % 66% (35-66) Lymphocytes % 18% (24-48) L Monocytes % 7% (0-10) Eosinophils % 9% (0-5) H Platelet Estimate Adequate (ADEQUATE) Sodium Level 133mmol/L (136-145) L Potassium Level 3.8mmol/L (3.5-5.1) Chloride Level 105mmol/L (98-107) Carbon Dioxide Level 22mmol/L (21-32) Anion Gap 6 (6-14) Blood Urea Nitrogen 8mg/dL (8-26) Creatinine 1.0mg/dL (0.7-1.3) Estimated GFR (Cockcroft-Gault) 86.1 BUN/Creatinine Ratio 8 (6-20) Glucose Level 90mg/dL (70-99) Calcium Level 9.0mg/dL (8.5-10.1) Total Bilirubin 0.4mg/dL (0.2-1.0) Aspartate Amino Transferase (AST) 18U/L (15-37) Alanine Aminotransferase (ALT) 22U/L (16-63) Alkaline Phosphatase 71U/L (46-116) Total Protein 6.9g/dL (6.4-8.2) Albumin 3.7g/dL (3.4-5.0) Albumin/Globulin Ratio 1.2 (1.0-1.7) Lipase 94U/L (73-393) Laboratory Tests 08/12/16 23:50 Laboratory Tests 08/12/16 23:50 EKG EKG Not indicated. [] Radiology/Procedures Radiology/Procedures Acute abdominal series: 3 view: Normal cardiopulmonary silhouette, no infiltrates, no effusions, no soft tissue or bony abnormalities identified. No evidence of free air or obstruction. As noted by me. [] Course & Med Decision Making Course & Med Decision Making Pertinent Labs and Imaging studies reviewed. (See chart for details) Patient states he's been taking all the home medications, but is experiencing persistent nausea, vomiting, pain and diarrhea. Discussed with patient that he is currently taking the maximized oral regimens. Patient received IV Zofran in the ED, along with pain medication. States that his pain persist despite receiving narcotics. X-ray obtained did not reveal any evidence of acutely concerning findings, laboratory studies also revealed electrolytes within normal limits. After receiving IV fluids and additional pain medication patient states he still feels "terrible". I discussed with the patient that he would receive limited IV pain medications and antiemetics along with IV fluids, with a goal of transitioning back to oral regimen. Patient stated that he was in agreement with this plan, admitted to the service of Dr. Macias with bridge orders entered as discussed. Dragon Disclaimer Dragon Disclaimer This electronic medical record was generated, in whole or in part, using a voice recognition dictation system. Departure Impression: Primary Impression: Abdominal pain Additional Impression: C. difficile colitis Disposition: ADMITTED INPATIENT Admitting Physician: Other Condition: STABLE Problem Qualifiers SHERLYN SOLANO 28, 2017 00:38
[2016-08-13] MEDS ORDERED: IPRATRPIUM/ALBUTEROL 0.5/2.5MG 3 ML NEBU. NEB ONE (00:45)
[2016-08-13] MEDS ORDERED: HYDROMORPHONE 2 MG/ML VIAL. IV ONE (00:45)
[2016-08-13] MEDS ORDERED: ONDANSETRON PF 4 MG/2 ML VIAL. IV PRN (03:15)
[2016-08-13 03:40] VITALS: BP 143/89
[2016-08-13] MEDS: IV NORMAL SALINE 1000ML BAG 1,000 ML IV SCH ×3 (04:32→20:13)
[2016-08-13] MEDS: DIPHENHYDRAMINE HCL 25 MG CAPSULE PO PRN ×2 (06:31→20:52)
--- NOTE | 2016-08-13 06:51 | ACF ---
Admission Forms Criteria GASTROENTEROLOGY GRG Clinical Indications for Admission to Inpatient Care (Place 'X' for any and all applicable criteria): Hospital admission is needed for appropriate care of the patient because of ANY ONE of the following: [ ]I. Hemoperitoneum(7) [ ]II. Ascites requiring acute treatment indicated by ANY ONE of the following( 8)(9): [ ]a) Hemodynamic instability remaining after emergency or observation level care (as appropriate) [ ]b) Peritoneal signs present (eg, abdominal rigidity, rebound tenderness, absent bowel sounds) [ ]c) Tachypnea, Hypoxemia, or other respiratory symptoms remain after emergency or observation level care (as appropriate) [ ]d) Suspected infected ascites as indicated by ANY ONE of the following: [ ]i) Temperature greater than 100 degrees F (37.8 degrees C) [ ]ii) Abdominal pain or tenderness not relieved by paracentesis [ ]iii) Systemic signs of infection (eg, elevated WBC count, fever) [ ]iv) Ascitic fluid analysis consistent with infection ( eg, elevated WBC count): [ ]v) Vital sign abnormality [ ]III. Suspected acute intra-abdominal process indicated by ANY ONE of the following(1)(2)(3)(4)(5): [ ]a) Hemodynamic instability [ ]b) Peritoneal signs present (eg, abdominal rigidity, rebound tenderness, absent bowel sounds) [ ]c) Bowel obstruction suspected (eg, severe vomiting, abdominal distension) [ ]d) Suspected mesenteric ischemia or ischemic colitis(6) [ ]e) Other signs or symptoms of acute abdominal disease (eg, severe pain, free air): [ ]IV. Severe liver disease indicated by ANY ONE of the following(8)(9)(10)(11)( 12)(13)(14): [ ]a) Acute hepatitis (eg, transaminase level greater than 1000 IU/L) [ ]b) Acute elevation of prothrombin time to more than 50% above normal or INR greater than 1.5 [ ]c) Bilirubin greater than 20 mg/dL (342 micromoles/L) (15) [ ]d) New-onset or worsening hepatic encephalopathy [ ]e) Acute liver necrosis [ ]f) Vomiting or dehydration that is severe of persistent [ ]g) Hemodynamic instability due to liver disease [ ]h) Acute renal failure [ ]i) Hepatic abscess [ ]j) Dehydration that is severe or persistent [ ]k) Hepatic hydrothorax(21) [ ]l) Other indications of severe liver disease (eg, persistent fever , ingestion of hepatotoxin) [X]V. Severe diarrhea indicated by ANY ONE of the following(17)(18)(19)(20)(21)( 22)(23): [ ]a) High fever or other high-risk infection situation [ ]b) Intractable bloody diarrhea (eg, more than 6 bloody stools per day) [X]c) Suspected Clostridium difficile-associated diarrhea(24) [ ]d) Change in mental status that persists after emergency or observation level care (as appropriate) [ ]e) Severe dehydration (eg, greater than 9% loss of body weight in children) [ ]f) Inability to maintain hydration [ ]g) Peritoneal signs present (eg, abdominal rigidity, rebound tenderness, absent bowel sounds) [ ]h) Abdominal ischemia suspected(6) [ ]i) Hemodynamic instability that persists after emergency or observation level care (as appropriate) [ ]j) Severe electrolyte abnormalities requiring inpatient care [ ]k) Acute renal failure [ ]. Suspected toxic megacolon(5)(6) [ ]VII.Severe dysphagia indicated by ANY ONE of the following(25)(26): [ ]a) Suspected esophageal perforation or fistula(27) [ ]b) Suspected cause that requires inpatient care (eg, caustic ingestion, severe esophagitis) (28) [ ]c) Severe dehydration (eg, greater than 9% loss of body weight in children) [ ]d) Inability to manage secretions or maintain hydration [ ]e) Hemodynamic instability that persists after emergency or observation level care (as appropriate) [ ]f) Severe electrolyte abnormalities requiring inpatient care [ ]g) Acute renal failure [ ]VIII.Vomiting and ANY ONE of the following (29)(30)(31)(32): [ ]a) High fever or other high-risk infection situation [ ]b) Change in mental status that persists after emergency or observation level care (as appropriate) [ ]c) Severe dehydration (e.g., greater than 9% loss of body weight in children) [ ]d) Peritoneal signs present (e.g., abdominal rigidity, rebound tenderness, absent bowel sounds) [ ]e) Hemodynamic instability that persists after emergency or observation level care (as appropriate) [ ]f) Severe electrolyte abnormalities requiring inpatient care [ ]g) Acute renal failure [ ]h) Bowel obstruction suspected (e.g., severe vomiting, abdominal distension) [ ]i) Vomiting that is severe or persistent after medical treatment [ ]IX. Significant dehydration indicated by ANY ONE of the following(23)(24)(25) [ ]a) Clinical findings of severe dehydration indicated by ANY ONE of the following: [ ]i) Acute loss of weight from baseline (5% of body weight in adults, 9% in pediatric patients) [ ]ii) Hemodynamic instability [ ]iii) Acute renal failure [ ]iv) Serum sodium greater than 150 mEq/L (mmol/L) [ ]b) Dehydration that is persistent indicated by ALL of the following: [ ]i) Oral rehydration therapy not tolerated or insufficient to adequately correct dehydration [ ]ii) Appropriate intravenous treatment (eg, fluids) does not readily correct dehydration hours of (ie, after 12 to 24 of treatment) [ ]X. Gastroparesis and ANY ONE of the following(37)(38)(39): [ ]a) Dehydration that is severe or persistent [ ]b) Severe electrolyte abnormalities requiring inpatient care [ ]c) Acute renal failure [ ]d) Vomiting that is severe or persistent [ ]XI. Complications of transplanted liver indicated by ANY ONE of the following (40)(41): [ ]a) Acute graft rejection requiring inpatient management (eg, intravenous immunosuppression)(42) [ ]b) Failure of transplanted liver as indicated by ANY ONE of the following: [ ]i) Acute hepatitis (eg, transaminase level greater than 1000 International Units per liter (IU/L)) [ ]ii) Acute elevation of prothrombin time to more than 50% above baseline or INR greater than 1.5 [ ]iii) Bilirubin greater than 20 mg/dL (342 micromoles/L) [ ]iv) New-onset or worsening hepatic encephalopathy [ ]v) Acute elevation of serum ammonia level (eg, greater than 210 mcg/dL (150 micromoles/L)) [ ]vi) Acute liver necrosis [ ]c) Infection requiring inpatient management (eg, Hemodynamic instability, need for intravenous antimicrobial treatment)(43)(44)(45)(46)(47)(48)(49)(50) [ ]d) Other complication of transplanted liver (eg, thrombosis, autoimmune hepatitis, variceal bleeding) requiring inpatient management(51)(52) [ ]XII Complications of transplanted pancreas indicated by ANY ONE of the following(53): [ ]a) Acute graft rejection requiring inpatient management (eg, intravenous immunosuppression)(42)(54) [ ]b) Failure of transplanted pancreas as indicated by ANY ONE of the following: [ ]i) Serum amylase greater than 3 times the upper limit of normal or baseline [ ]ii) Serum lipase greater than 3 times the upper limit of normal or baseline [ ]iii) Imaging findings consistent with pancreatic inflammation or necrosis [ ]c) Infection requiring inpatient management (eg, Hemodynamic instability, need for intravenous antimicrobial treatment)(43)(44)(45)(46)(47)(48)(49)(50) [ ]d) Other complication of transplanted liver (eg, thrombosis, autoimmune hepatitis, variceal bleeding) requiring inpatient management(51)(52) [ ]X. Gastroenterology condition and ALL of the following: [ ]a) Symptom or finding for which emergency and observation care have failed or are not considered appropriate (Also use General Criteria: Observation Care as appropriate) [ ]b) Presence of ANY ONE of the following: [ ]i) A General Admission Criteria [ ]ii) A Pediatric General Admission Criteria. The original [facility] [employer] content created by [facility] has been revised. The portions of the content which have been revised are identified through the use of italic text or in bold,and [facility] has neither reviewed nor approved the modified material. All other unmodified content is copyright [facility]. Please see references footnoted in the original [facility] edition 2016 Admission Criteria Met?: Yes EDIL GONZALEZ Aug 13, 2016 06:51
[2016-08-13 07:00] VITALS: BP 135/100
--- NOTE | 2016-08-13 07:28 | RAD ---
Acute abdomen series with chest, 3 views, 08/13/2016: History: Abdominal pain, shortness of breath Gas is present in large and small bowel in a nonspecific pattern. No free air is seen in the abdomen. There is no evidence of organomegaly or abnormal abdominal calcification. Surgical clips are present in the right upper quadrant. The heart size is normal. The lungs are clear. There is no evidence of pleural fluid. IMPRESSION: No acute abdominal abnormality is detected.
--- NOTE | 2016-08-13 08:52 | PDOC ---
Subjective: Subjective: GI consult 08/07/16. Since discharge, took Flagyl, [place], Zofran, and iron. Was improved at time of discharge but says "everything got worse" including abd pain, diarrhea, and vomiting. Last BM yesterday, last vomited last night. Says declined colonoscopy last time "because of money" but now thinks he'd like to have this. Objective: Objective: Recent admission for abd pain, h/o C Diff - no stool specimen obtained (was having formed stools). Concern for drug-seeking behavior in chart, records from other facilities. Saw ID. Has taken vanco and Flagyl for C Diff. EGD 08/08/16 for KRYSTAL/abd pain: -2 inlet patches, upper esophagus -Grade I reflux esophagitis 39-40cm -Normal stomach; antrum biopsied (CHRONIC GASTRITIS, NO H. PYLORI) -Normal duodenum to fourth portion; 4th and second portions biopsied (NEGATIVE FOR PATHOLOGY/SPRUE) IMP: reflux esophagitis, otherwise normal exam. incidental "inlet patches." Colonoscopy was recommended for the next day, 08/09. At first he agreed but then wanted to discharge. Uninsured. Vital Signs: Vital Signs Date Time Temp Pulse Resp B/P Pulse Ox O2 Delivery O2 Flow Rate FiO2 08/13/16 07:00 97.9 93 16 135/100 97 Room Air 97.9 Labs: Laboratory Tests Test 08/12/16 23:50 White Blood Count 8.4x10^3/uL Red Blood Count 4.89x10^6/uL Hemoglobin 12.6g/dL Hematocrit 39.5% Mean Corpuscular Volume 81fL Mean Corpuscular Hemoglobin 26pg Mean Corpuscular Hemoglobin Concent 32g/dL Red Cell Distribution Width 18.4% Platelet Count 336x10^3/uL Neutrophils (%) (Auto) 58% Lymphocytes (%) (Auto) 19% Monocytes (%) (Auto) 7% Eosinophils (%) (Auto) 14% Basophils (%) (Auto) 1% Neutrophils # (Auto) 4.9x10^3uL Lymphocytes # (Auto) 1.6x10^3/uL Monocytes # (Auto) 0.6x10^3/uL Eosinophils # (Auto) 1.2x10^3/uL Basophils # (Auto) 0.1x10^3/uL Segmented Neutrophils % 66% Lymphocytes % 18% Monocytes % 7% Eosinophils % 9% Platelet Estimate Adequate Sodium Level 133mmol/L Potassium Level 3.8mmol/L Chloride Level 105mmol/L Carbon Dioxide Level 22mmol/L Anion Gap 6 Blood Urea Nitrogen 8mg/dL Creatinine 1.0mg/dL Estimated GFR (Cockcroft-Gault) 86.1 BUN/Creatinine Ratio 8 Glucose Level 90mg/dL Calcium Level 9.0mg/dL Total Bilirubin 0.4mg/dL Aspartate Amino Transf (AST/SGOT) 18U/L Alanine Aminotransferase (ALT/SGPT) 22U/L Alkaline Phosphatase 71U/L Total Protein 6.9g/dL Albumin 3.7g/dL Albumin/Globulin Ratio 1.2 Lipase 94U/L Imaging: Acute Abd Series 08/13/16 IMPRESSION: No acute abdominal abnormality is detected. PE: GEN: NAD HEENT: eye patch LUNGS: CTAB HEART: RRR ABD: NABS, S/ND, diffusely tender to light palpation EXTREMITY: No edema SKIN: No rashes, no jaundice NEURO/PSYCH: A & O 3 A/P: Recurrent abd pain, diarrhea, n/v w/ h/o C Diff -recent admission ---> pt requested discharge w/o colonoscopy as recommended -EGD last week as above -normal CT at [facility] in 04/2016 -s/p cholecystectomy and appendectomy KRYSTAL, eosinophilia -- D/w RN. Keep to clear liquids for now. Will review w/ Dr. Villanueva. MARLENE MARC Aug 13, 2016 08:52
--- NOTE | 2016-08-13 09:39 | PDOC1 ---
History and Physical Past Medical History Cardiovascular: No pertinent hx Pulmonary: Asthma CENTRAL NERVOUS SYSTEM: Migraine GI: Other Heme/Onc: No pertinent hx Hepatobiliary: No pertinent hx Psych: No pertinent hx Rheumatologic: No pertinent hx Infectious disease: No pertinent hx Renal/: No pertinent hx Past Surgical History Past Surgical History: Other Social History ALCOHOL: none Drugs: None Current Problem List Problem List Problems Medical Problems: (1) Abdominal pain Status: Acute (2) C. difficile colitis Status: Acute Current Medications Current Medications Current Medications Medications (Trade) Dose Ordered Sig/Sugar Start Time Stop Time Status Last Admin Dose Admin Albuterol/ Ipratropium (Duoneb) 3 ml 1X ONCE 08/13/16 00:45 08/13/16 00:46 DC 08/13/16 00:46 3 ML Diphenhydramine HCl (Benadryl) 25 mg PRN Q4HRS PRN 08/13/16 06:30 08/13/16 06:31 25 MG Fentanyl Citrate (Fentanyl 2ml Vial) 25 mcg PRN Q15MIN PRN 08/12/16 23:30 08/13/16 23:29 08/13/16 03:04 25 MCG Fentanyl Citrate 50 mcg 50 mcg PRN Q3HRS PRN 08/13/16 03:15 08/14/16 03:14 08/13/16 09:32 50 MCG Hydromorphone HCl (Dilaudid) 1 mg 1X ONCE 08/13/16 00:45 08/13/16 00:46 DC 08/13/16 00:56 1 MG Ondansetron HCl (Zofran) 4 mg PRN Q8HRS PRN 08/13/16 03:15 08/14/16 03:14 08/13/16 09:30 4 MG Sodium Chloride (Iv Sodium Chloride 0.9% 1000ml Bag) 1,000 ml @ 125 mls/hr Q8H 08/13/16 03:15 08/14/16 03:14 08/13/16 04:32 125 MLS/HR Allergies Allergies Allergies Coded Allergies Type Severity Reaction Last Updated Verified NSAIDS (Non-Steroidal Anti-Inflamma Allergy Severe Anaphylaxis 08/09/16 Yes chlorpheniramine Allergy Intermediate 08/09/16 Yes levofloxacin Allergy Intermediate 08/09/16 Yes lorazepam Allergy Intermediate 08/09/16 Yes metoclopramide Allergy Intermediate 08/08/16 Yes phenylephrine Allergy Intermediate 08/08/16 Yes scopolamine Allergy Intermediate 08/08/16 Yes tramadol Allergy Intermediate 08/08/16 Yes ROS Review of System CONSTITUTIONAL: No fever or chills EYES: No recent changes SKIN: No rash or itching CARDIOVASCULAR: No chest pain, syncope, palpitations, or edema RESPIRATORY: No SOB or cough GASTROINTESTINAL: nausea, vomiting or abdominal pain, diarrhea. NEUROLOGICAL: No headaches or weakness ENDOCRINE: No cold or heat intolerance GENITOURINARY: No urgency or frequency of urination MUSCULOSKELETAL: No back pain or joint pain LYMPHATICS: No enlarged lymph nodes PSYCHIATRIC: No anxiety or depression Physical Exam Physical Exam GEN.: No apparent distress. Alert and oriented. HEENT: Head is normocephalic, atraumatic NECK: Supple. no jvd LUNGS: Clear to auscultation. normal airflow HEART: RRR, S1, S2 present. Peripheral pulses intact ABDOMEN: Soft, nontender. Positive bowel sounds. EXTREMITIES: Without any cyanosis. NEUROLOGIC: Normal speech, normal tone PSYCHIATRIC: Normal affect, normal mood. SKIN: No visible skin lesions Vitals Vitals Vital Signs Date Time Temp Pulse Resp B/P Pulse Ox O2 Delivery O2 Flow Rate FiO2 08/13/16 09:18 97 Room Air 08/13/16 07:00 97.9 93 16 135/100 97.9 Labs Labs Laboratory Tests Test 08/12/16 23:50 White Blood Count 8.4x10^3/uL (4.0-11.0) Red Blood Count 4.89x10^6/uL (4.30-5.70) Hemoglobin 12.6g/dL (13.0-17.5) Hematocrit 39.5% (39.0-53.0) Mean Corpuscular Volume 81fL (79-100) Mean Corpuscular Hemoglobin 26pg (25-35) Mean Corpuscular Hemoglobin Concent 32g/dL (31-37) Red Cell Distribution Width 18.4% (11.5-14.5) Platelet Count 336x10^3/uL (140-400) Neutrophils (%) (Auto) 58% (31-73) Lymphocytes (%) (Auto) 19% (24-48) Monocytes (%) (Auto) 7% (0-9) Eosinophils (%) (Auto) 14% (0-3) Basophils (%) (Auto) 1% (0-3) Neutrophils # (Auto) 4.9x10^3uL (1.8-7.7) Lymphocytes # (Auto) 1.6x10^3/uL (1.0-4.8) Monocytes # (Auto) 0.6x10^3/uL (0.0-1.1) Eosinophils # (Auto) 1.2x10^3/uL (0.0-0.7) Basophils # (Auto) 0.1x10^3/uL (0.0-0.2) Segmented Neutrophils % 66% (35-66) Lymphocytes % 18% (24-48) Monocytes % 7% (0-10) Eosinophils % 9% (0-5) Platelet Estimate Adequate (ADEQUATE) Sodium Level 133mmol/L (136-145) Potassium Level 3.8mmol/L (3.5-5.1) Chloride Level 105mmol/L (98-107) Carbon Dioxide Level 22mmol/L (21-32) Anion Gap 6 (6-14) Blood Urea Nitrogen 8mg/dL (8-26) Creatinine 1.0mg/dL (0.7-1.3) Estimated GFR (Cockcroft-Gault) 86.1 BUN/Creatinine Ratio 8 (6-20) Glucose Level 90mg/dL (70-99) Calcium Level 9.0mg/dL (8.5-10.1) Total Bilirubin 0.4mg/dL (0.2-1.0) Aspartate Amino Transf (AST/SGOT) 18U/L (15-37) Alanine Aminotransferase (ALT/SGPT) 22U/L (16-63) Alkaline Phosphatase 71U/L (46-116) Total Protein 6.9g/dL (6.4-8.2) Albumin 3.7g/dL (3.4-5.0) Albumin/Globulin Ratio 1.2 (1.0-1.7) Lipase 94U/L (73-393) Laboratory Tests Test 08/12/16 23:50 White Blood Count 8.4x10^3/uL (4.0-11.0) Red Blood Count 4.89x10^6/uL (4.30-5.70) Hemoglobin 12.6g/dL (13.0-17.5) Hematocrit 39.5% (39.0-53.0) Mean Corpuscular Volume 81fL (79-100) Mean Corpuscular Hemoglobin 26pg (25-35) Mean Corpuscular Hemoglobin Concent 32g/dL (31-37) Red Cell Distribution Width 18.4% (11.5-14.5) Platelet Count 336x10^3/uL (140-400) Neutrophils (%) (Auto) 58% (31-73) Lymphocytes (%) (Auto) 19% (24-48) Monocytes (%) (Auto) 7% (0-9) Eosinophils (%) (Auto) 14% (0-3) Basophils (%) (Auto) 1% (0-3) Neutrophils # (Auto) 4.9x10^3uL (1.8-7.7) Lymphocytes # (Auto) 1.6x10^3/uL (1.0-4.8) Monocytes # (Auto) 0.6x10^3/uL (0.0-1.1) Eosinophils # (Auto) 1.2x10^3/uL (0.0-0.7) Basophils # (Auto) 0.1x10^3/uL (0.0-0.2) Segmented Neutrophils % 66% (35-66) Lymphocytes % 18% (24-48) Monocytes % 7% (0-10) Eosinophils % 9% (0-5) Platelet Estimate Adequate (ADEQUATE) Sodium Level 133mmol/L (136-145) Potassium Level 3.8mmol/L (3.5-5.1) Chloride Level 105mmol/L (98-107) Carbon Dioxide Level 22mmol/L (21-32) Anion Gap 6 (6-14) Blood Urea Nitrogen 8mg/dL (8-26) Creatinine 1.0mg/dL (0.7-1.3) Estimated GFR (Cockcroft-Gault) 86.1 BUN/Creatinine Ratio 8 (6-20) Glucose Level 90mg/dL (70-99) Calcium Level 9.0mg/dL (8.5-10.1) Total Bilirubin 0.4mg/dL (0.2-1.0) Aspartate Amino Transf (AST/SGOT) 18U/L (15-37) Alanine Aminotransferase (ALT/SGPT) 22U/L (16-63) Alkaline Phosphatase 71U/L (46-116) Total Protein 6.9g/dL (6.4-8.2) Albumin 3.7g/dL (3.4-5.0) Albumin/Globulin Ratio 1.2 (1.0-1.7) Lipase 94U/L (73-393) VTE Prophylaxis Ordered VTE Prophylaxis Devices: No VTE Pharmacological Prophylaxi: Yes MARICRUZ MCCRACKEN MD Aug 13, 2016 09:39
[2016-08-13] MEDS ORDERED: ACETAMINOPHEN 325 MG TABLET. PO PRN (09:45)
[2016-08-13] MEDS ORDERED: hydrALAZINE 20 MG/ML VIAL. IVP PRN (09:45)
[2016-08-13 10:53] VITALS: BP 128/85
[2016-08-13] MEDS: HYDROCODONE/APAP 5/325MG TABLET. PO PRN ×3 (11:23→23:53)
[2016-08-13] MEDS: MORPHINE SULFATE 2 MG/ML DISP.SYRIN. IV PRN ×5 (12:26→23:52)
[2016-08-13 14:20] VITALS: BP 119/72
[2016-08-13] MEDS ORDERED: ALBUTEROL SULFATE 2.5 MG/3 ML NEBU. NEB PRN (15:00)
[2016-08-13] MEDS: ALBUTEROL SULFATE 2.5 MG/3 ML NEBU. NEB SCH ×2 (15:36→19:19)
[2016-08-13] MEDS: ONDANSETRON PF 4 MG/2 ML VIAL. IV PRN (18:38)
[2016-08-13 19:00] VITALS: BP 118/85
[2016-08-13] MEDS: BUDESONIDE 0.5 MG/2 ML NEBU. NEB SCH (19:20)
--- NOTE | 2016-08-13 20:11 | HP ---
ADMIT DATE: 08/13/2016 CHIEF COMPLAINT: Abdominal pain, diarrhea and nausea, vomiting. HISTORY OF PRESENT ILLNESS: A 35-year-old male patient with history of asthma and questionable C. diff infection presented to the ER with complaints of intractable abdominal pain, nausea, vomiting for last couple of days. Reportedly, the patient was admitted to the hospital here nearly 1 week ago and he was diagnosed with reflux esophagitis. The patient left against medical advice at that time; however, he came back to the hospital for intractable nausea, vomiting and abdominal pain. Reportedly, the patient left due to some financial reasons. He was thinking that he could not able to pay for colonoscopy. However, at this time, he is agreeable for colonoscopy. He says his symptoms such as nausea and vomiting and diarrhea was getting worse after the discharge. He did complete Flagyl and vancomycin dosages in the past. Denies any fever, chills or sick contact or travel history. PAST MEDICAL HISTORY: Asthma, questionable C. diff. PAST SURGICAL HISTORY: Appendectomy and cholecystectomy. PERSONAL HISTORY: No smoking, no alcohol, no drug abuse. ALLERGIES: LEVOFLOXACIN, LORAZEPAM, METOCLOPRAMIDE, PHENYLEPHRINE, SCOPOLAMINE, TRAMADOL. FAMILY HISTORY: Unknown to patient. REVIEW OF SYSTEMS: Please see my electronic H and P. PHYSICAL EXAMINATION: Please see my electronic H and P. LABORATORY FINDINGS: WBC 8.4, hemoglobin 12.6, MCV is 81, platelets 336. Chemistry, sodium 133, potassium 3.8, chloride 134, anion gap 60, BUN of 8, creatinine 1.0. IMAGING STUDIES: CT of the abdomen and pelvis no acute abnormal findings. ASSESSMENT: 1. Intractable nausea, vomiting and diarrhea. Unclear etiology, questionable Clostridium difficile. We did not find any evidence of Clostridium difficile PCR positive in the EMR. 2. Reflux esophagitis per diagnosis. 3. Asthma. PLAN: 1. The patient has been admitted for pain control and IV hydration. Keep the patient n.p.o. IV hydration, normal saline at 75 mL per hour. 2. Gastroenterology has been consulted. 3. Check PCR. 4. He did not have any infection such as fever. I will rather repeat the PCR every time that the patient may have complaint of functional disorder. 5. Pain control with IV morphine. 6. Narcosis. 7. Prognosis guarded. MARICRUZ MCCRACKEN MD DR: MICHAEL/keely JOB#: [id number] / [id number] YOVANI
[2016-08-13] MEDS ORDERED: NON FORMULARY ITEM (Budesonide/Formoterol Fumarate (Symbicort 160-4.5 Mcg Inhaler) 2 PUFF) IH SCH (21:00)
[2016-08-13 23:25] VITALS: BP 164/87
[2016-08-14] MEDS: MORPHINE SULFATE 2 MG/ML DISP.SYRIN. IV PRN ×7 (03:16→23:17)
[2016-08-14 03:20] VITALS: BP 106/71
[2016-08-14 04:42] LABS: BASO # 0.1 x10^3/uL (0.0-0.2); BASO % 1 % (0-3); EOS % 16 % (0-3); HEMATOCRIT 37.7 % (39.0-53.0); HEMOGLOBIN 11.7 g/dL (13.0-17.5); LYMPH # 0.6 x10^3/uL (1.0-4.8); LYMPH % 7 % (24-48); MEAN CORPUSCULAR HEMOGLOBIN 26 pg (25-35); MEAN CORPUSCULAR HGB CONC 31 g/dL (31-37); MEAN CORPUSCULAR VOLUME 82 fL (79-100); MONO % 6 % (0-9); NEUT % 70 % (31-73); PLATELET COUNT 261 x10^3/uL (140-400); RED BLOOD COUNT 4.57 x10^6/uL (4.30-5.70); RED CELL DISTRIBUTION WIDTH 18.7 % (11.5-14.5); WHITE BLOOD COUNT 8.8 x10^3/uL (4.0-11.0)
[2016-08-14 04:57] LABS: CALCIUM 8.6 mg/dL (8.5-10.1); CREATININE 1.2 mg/dL (0.7-1.3); GFR 69.7; POTASSIUM 4.2 mmol/L (3.5-5.1)
[2016-08-14 07:00] VITALS: BP 110/69
[2016-08-14] MEDS: ALBUTEROL SULFATE 2.5 MG/3 ML NEBU. NEB SCH ×4 (07:44→19:57)
[2016-08-14] MEDS: BUDESONIDE 0.5 MG/2 ML NEBU. NEB SCH ×2 (07:44→19:57)
[2016-08-14] MEDS: HYDROCODONE/APAP 5/325MG TABLET. PO PRN ×3 (08:13→22:40)
[2016-08-14] MEDS: FERROUS SULFATE 325 MG TABLET PO SCH (08:13)
--- NOTE | 2016-08-14 10:11 | PDOC ---
Subjective: Subjective: Tolerating clears. Objective: Vital Signs: Vital Signs Date Time Temp Pulse Resp B/P Pulse Ox O2 Delivery O2 Flow Rate FiO2 08/14/16 08:19 Room Air 08/14/16 07:50 96 08/14/16 07:00 98.1 110 18 110/69 98.1 Labs: Laboratory Tests Test 08/13/16 17:30 08/14/16 04:00 Clostridium difficile Toxin (PCR) Negative White Blood Count 8.8x10^3/uL Red Blood Count 4.57x10^6/uL Hemoglobin 11.7g/dL Hematocrit 37.7% Mean Corpuscular Volume 82fL Mean Corpuscular Hemoglobin 26pg Mean Corpuscular Hemoglobin Concent 31g/dL Red Cell Distribution Width 18.7% Platelet Count 261x10^3/uL Neutrophils (%) (Auto) 70% Lymphocytes (%) (Auto) 7% Monocytes (%) (Auto) 6% Eosinophils (%) (Auto) 16% Basophils (%) (Auto) 1% Neutrophils # (Auto) 6.2x10^3uL Lymphocytes # (Auto) 0.6x10^3/uL Monocytes # (Auto) 0.6x10^3/uL Eosinophils # (Auto) 1.4x10^3/uL Basophils # (Auto) 0.1x10^3/uL Sodium Level 143mmol/L Potassium Level 4.2mmol/L Chloride Level 108mmol/L Carbon Dioxide Level 28mmol/L Anion Gap 7 Blood Urea Nitrogen 4mg/dL Creatinine 1.2mg/dL Estimated GFR (Cockcroft-Gault) 69.7 Glucose Level 86mg/dL Calcium Level 8.6mg/dL PE: GEN: NAD LUNGS: CTAB HEART: RRR ABD: S/ND, non-specific tenderness NEURO/PSYCH: A & O 3 A/P: Recurrent abd pain, diarrhea, n/v w/ h/o C Diff -EGD last week w/ reflux -normal CT at [facility] in 04/2016 -s/p cholecystectomy and appendectomy -C Diff NEGATIVE KRYSTAL, eosinophilia -- Prep today (see orders), colonoscopy tomorrow. Clears okay until 6:00 a.m. tomorrow. Will add PPI. MARLENE MARC Aug 14, 2016 10:11
--- NOTE | 2016-08-14 10:12 | PDOC ---
PROGRESS NOTES Chief Complaint Chief Complaint cc: abdominal pain A/P 1. Intractable nausea, abdominal discomfort diarrhea. Unclear etiology, 2. Reflux esophagitis per diagnosis. 3. Asthma. Plan s/p EGD in last admission, Coloscopy in AM Clear liquid diet Pain control with iv morphine PRN duo nebs labs reviewed, Vitals Vitals Vital Signs Date Time Temp Pulse Resp B/P Pulse Ox O2 Delivery O2 Flow Rate FiO2 08/14/16 08:19 Room Air 08/14/16 07:50 96 08/14/16 07:00 98.1 110 18 110/69 98.1 Physical Exam General: Alert, Oriented X3 Heart: Normal S1, Normal S2 Lungs: Clear Abdomen: Normal bowel sounds Extremities: No clubbing Labs LABS Laboratory Tests Test 08/13/16 17:30 08/14/16 04:00 Clostridium difficile Toxin (PCR) Negative (Negative) White Blood Count 8.8x10^3/uL (4.0-11.0) Red Blood Count 4.57x10^6/uL (4.30-5.70) Hemoglobin 11.7g/dL (13.0-17.5) Hematocrit 37.7% (39.0-53.0) Mean Corpuscular Volume 82fL (79-100) Mean Corpuscular Hemoglobin 26pg (25-35) Mean Corpuscular Hemoglobin Concent 31g/dL (31-37) Red Cell Distribution Width 18.7% (11.5-14.5) Platelet Count 261x10^3/uL (140-400) Neutrophils (%) (Auto) 70% (31-73) Lymphocytes (%) (Auto) 7% (24-48) Monocytes (%) (Auto) 6% (0-9) Eosinophils (%) (Auto) 16% (0-3) Basophils (%) (Auto) 1% (0-3) Neutrophils # (Auto) 6.2x10^3uL (1.8-7.7) Lymphocytes # (Auto) 0.6x10^3/uL (1.0-4.8) Monocytes # (Auto) 0.6x10^3/uL (0.0-1.1) Eosinophils # (Auto) 1.4x10^3/uL (0.0-0.7) Basophils # (Auto) 0.1x10^3/uL (0.0-0.2) Sodium Level 143mmol/L (136-145) Potassium Level 4.2mmol/L (3.5-5.1) Chloride Level 108mmol/L (98-107) Carbon Dioxide Level 28mmol/L (21-32) Anion Gap 7 (6-14) Blood Urea Nitrogen 4mg/dL (8-26) Creatinine 1.2mg/dL (0.7-1.3) Estimated GFR (Cockcroft-Gault) 69.7 Glucose Level 86mg/dL (70-99) Calcium Level 8.6mg/dL (8.5-10.1) Assessment and Plan Assessmemt and Plan Problems Medical Problems: (1) Abdominal pain Status: Acute (2) C. difficile colitis Status: Acute Problems: Comment Review of Relevant I have reviewed the following items héctor (where applicable) has been applied. Labs Laboratory Tests Test 08/12/16 23:50 08/13/16 08:30 08/13/16 17:30 08/14/16 04:00 White Blood Count 8.4x10^3/uL (4.0-11.0) 8.8x10^3/uL (4.0-11.0) Red Blood Count 4.89x10^6/uL (4.30-5.70) 4.57x10^6/uL (4.30-5.70) Hemoglobin 12.6g/dL (13.0-17.5) 11.7g/dL (13.0-17.5) Hematocrit 39.5% (39.0-53.0) 37.7% (39.0-53.0) Mean Corpuscular Volume 81fL (79-100) 82fL (79-100) Mean Corpuscular Hemoglobin 26pg (25-35) 26pg (25-35) Mean Corpuscular Hemoglobin Concent 32g/dL (31-37) 31g/dL (31-37) Red Cell Distribution Width 18.4% (11.5-14.5) 18.7% (11.5-14.5) Platelet Count 336x10^3/uL (140-400) 261x10^3/uL (140-400) Neutrophils (%) (Auto) 58% (31-73) 70% (31-73) Lymphocytes (%) (Auto) 19% (24-48) 7% (24-48) Monocytes (%) (Auto) 7% (0-9) 6% (0-9) Eosinophils (%) (Auto) 14% (0-3) 16% (0-3) Basophils (%) (Auto) 1% (0-3) 1% (0-3) Neutrophils # (Auto) 4.9x10^3uL (1.8-7.7) 6.2x10^3uL (1.8-7.7) Lymphocytes # (Auto) 1.6x10^3/uL (1.0-4.8) 0.6x10^3/uL (1.0-4.8) Monocytes # (Auto) 0.6x10^3/uL (0.0-1.1) 0.6x10^3/uL (0.0-1.1) Eosinophils # (Auto) 1.2x10^3/uL (0.0-0.7) 1.4x10^3/uL (0.0-0.7) Basophils # (Auto) 0.1x10^3/uL (0.0-0.2) 0.1x10^3/uL (0.0-0.2) Segmented Neutrophils % 66% (35-66) Lymphocytes % 18% (24-48) Monocytes % 7% (0-10) Eosinophils % 9% (0-5) Platelet Estimate Adequate (ADEQUATE) Sodium Level 133mmol/L (136-145) 143mmol/L (136-145) Potassium Level 3.8mmol/L (3.5-5.1) 4.2mmol/L (3.5-5.1) Chloride Level 105mmol/L (98-107) 108mmol/L (98-107) Carbon Dioxide Level 22mmol/L (21-32) 28mmol/L (21-32) Anion Gap 6 (6-14) 7 (6-14) Blood Urea Nitrogen 8mg/dL (8-26) 4mg/dL (8-26) Creatinine 1.0mg/dL (0.7-1.3) 1.2mg/dL (0.7-1.3) Estimated GFR (Cockcroft-Gault) 86.1 69.7 BUN/Creatinine Ratio 8 (6-20) Glucose Level 90mg/dL (70-99) 86mg/dL (70-99) Calcium Level 9.0mg/dL (8.5-10.1) 8.6mg/dL (8.5-10.1) Total Bilirubin 0.4mg/dL (0.2-1.0) Aspartate Amino Transf (AST/SGOT) 18U/L (15-37) Alanine Aminotransferase (ALT/SGPT) 22U/L (16-63) Alkaline Phosphatase 71U/L (46-116) Total Protein 6.9g/dL (6.4-8.2) Albumin 3.7g/dL (3.4-5.0) Albumin/Globulin Ratio 1.2 (1.0-1.7) Lipase 94U/L (73-393) Clostridium difficile Toxin (PCR) Negative (Negative) Negative (Negative) Laboratory Tests Test 08/13/16 17:30 08/14/16 04:00 Clostridium difficile Toxin (PCR) Negative (Negative) White Blood Count 8.8x10^3/uL (4.0-11.0) Red Blood Count 4.57x10^6/uL (4.30-5.70) Hemoglobin 11.7g/dL (13.0-17.5) Hematocrit 37.7% (39.0-53.0) Mean Corpuscular Volume 82fL (79-100) Mean Corpuscular Hemoglobin 26pg (25-35) Mean Corpuscular Hemoglobin Concent 31g/dL (31-37) Red Cell Distribution Width 18.7% (11.5-14.5) Platelet Count 261x10^3/uL (140-400) Neutrophils (%) (Auto) 70% (31-73) Lymphocytes (%) (Auto) 7% (24-48) Monocytes (%) (Auto) 6% (0-9) Eosinophils (%) (Auto) 16% (0-3) Basophils (%) (Auto) 1% (0-3) Neutrophils # (Auto) 6.2x10^3uL (1.8-7.7) Lymphocytes # (Auto) 0.6x10^3/uL (1.0-4.8) Monocytes # (Auto) 0.6x10^3/uL (0.0-1.1) Eosinophils # (Auto) 1.4x10^3/uL (0.0-0.7) Basophils # (Auto) 0.1x10^3/uL (0.0-0.2) Sodium Level 143mmol/L (136-145) Potassium Level 4.2mmol/L (3.5-5.1) Chloride Level 108mmol/L (98-107) Carbon Dioxide Level 28mmol/L (21-32) Anion Gap 7 (6-14) Blood Urea Nitrogen 4mg/dL (8-26) Creatinine 1.2mg/dL (0.7-1.3) Estimated GFR (Cockcroft-Gault) 69.7 Glucose Level 86mg/dL (70-99) Calcium Level 8.6mg/dL (8.5-10.1) Medications Current Medications Sodium Chloride (Iv Sodium Chloride 0.9% 1000ml Bag) 1,000 ml @ 1,000 mls/hr Q1H IV Last administered on 08/12/16 23:58; Start 08/12/16 at 23:30; Stop at 00:29; Status DC Ondansetron HCl (Zofran) 4 mg 1X ONCE IV Last administered on 08/12/16 23:59 ; Start 08/12/16 at 23:30; Stop 08/12/16 at 23:31; Status DC Fentanyl Citrate (Fentanyl 2ml Vial) 25 mcg PRN Q15MIN PRN IV PAIN GREATER THAN 3/10 Last administered on 08/13/16 03:04; Start 08/12/16 at 23:30; Stop at 09:41; Status DC Albuterol/ Ipratropium (Duoneb) 3 ml 1X ONCE NEB Last administered on 00:46; Start 08/13/16 at 00:45; Stop 08/13/16 at 00:46; Status DC Hydromorphone HCl (Dilaudid) 1 mg 1X ONCE IV Last administered on 08/13/16 00 :56; Start 08/13/16 at 00:45; Stop 08/13/16 at 00:46; Status DC Ondansetron HCl (Zofran) 4 mg PRN Q8HRS PRN IV NAUSEA/VOMITING Last administered on 08/13/16 09:30; Start 08/13/16 at 03:15; Stop 08/13/16 at 18:05 ; Status DC Fentanyl Citrate 50 mcg 50 mcg PRN Q3HRS PRN IV PAIN Last administered on 09:32; Start 08/13/16 at 03:15; Stop 08/13/16 at 09:41; Status DC Sodium Chloride (Iv Sodium Chloride 0.9% 1000ml Bag) 1,000 ml @ 125 mls/hr Q8H IV Last administered on 08/13/16 20:13; Start 08/13/16 at 03:15; Stop at 03:14; Status DC Diphenhydramine HCl (Benadryl) 25 mg PRN Q4HRS PRN PO ITCHING Last administered on 08/13/16 20:52; Start 08/13/16 at 06:30 Morphine Sulfate 2 mg PRN Q2HR PRN IV PAIN Last administered on 08/14/16 08:14 ; Start 08/13/16 at 09:45 Acetaminophen (Tylenol) 325 mg PRN Q6HRS PRN PO MILD PAIN / TEMP; Start at 09:45 Acetaminophen/ Hydrocodone Bitart (Lortab 5/325) 1 tab PRN Q6HRS PRN PO MODERATE TO SEVERE PAIN Last administered on 08/14/16 08:13; Start 08/13/16 at 09:45 Hydralazine HCl (Apresoline) 10 mg PRN Q4HRS PRN IVP ELEVATED BP, SEE COMMENTS ; Start 08/13/16 at 09:45 Ondansetron HCl (Zofran) 4 mg PRN Q8HRS PRN IV NAUSEA/VOMITING Last administered on 08/13/16 18:38; Start 08/13/16 at 09:45 Ferrous Sulfate (Feosol) 325 mg DAILY PO Last administered on 08/14/16 08:13; Start 08/14/16 at 09:00 Albuterol Sulfate (Ventolin Neb Soln) 2.5 mg PRN Q4HRS PRN NEB WHEEZING; Start 08/13/16 at 15:00 Non-Formulary Medication 2 puff BID IH ; Start 08/13/16 at 21:00; Status UNV Albuterol Sulfate (Ventolin Neb Soln) 2.5 mg RTQID NEB Last administered on 07:44; Start 08/13/16 at 16:00 Budesonide (Pulmicort) 0.5 mg RTBID NEB Last administered on 08/14/16 07:44; Start 08/13/16 at 20:00 Magnesium Citrate (Citroma) 296 ml 1X ONCE PO ; Start 08/14/16 at 16:00; Stop 08/14/16 at 16:01; Status UNV Polyethylene Glycol (miraLAX Powder BULK BOTTLE) 238 gm 1X ONCE PO ; Start at 16:00; Stop 08/14/16 at 16:01; Status UNV Bisacodyl (Dulcolax Tab) 10 mg 1X ONCE PO ; Start 08/14/16 at 16:00; Stop 08/14 at 16:01; Status UNV Pantoprazole Sodium (Protonix) 40 mg DAILYAC PO ; Start 08/15/16 at 07:30; Status UNV Active Scripts Active Ferrous Sulfate 325 Mg Tablet 1 Tab PO DAILY [place] 5-325 Tablet (Acetaminophen/Hydrocodone Bitart) 1 Each Tablet 1 Tab PO PRN Q6HRS PRN Metronidazole 500 Mg Tablet 1 Tab PO TID Zofran (Ondansetron Hcl) 4 Mg Tablet 1 Tab PO Q8HRS PRN Reported Proventil Hfa Inhaler (Albuterol Sulfate) 6.7 Gm Hfa.aer.ad 1 Puff IH PRN Q4HRS PRN Symbicort 160-4.5 Mcg Inhaler (Budesonide/Formoterol Fumarate) 10.2 Gm Hfa.aer.ad 2 Puff IH BID Vitals/I & O Vital Sign - Last 24 Hours 08/13/16 08/13/16 08/13/16 08/13/16 10:53 14:20 15:39 19:00 Temp 90.3 97.4 98.3 90.3 97.4 98.3 Pulse 74 83 98 Resp 16 16 18 B/P 128/85 119/72 118/85 Pulse Ox 98 99 96 97 O2 Delivery Room Air Room Air Room Air 08/13/16 08/13/16 08/13/16 08/13/16 19:25 19:25 20:00 20:43 Resp 20 Pulse Ox 97 97 O2 Delivery Room Air Room Air Room Air Room Air 08/13/16 08/13/16 08/13/16 08/14/16 23:25 23:52 23:53 03:16 Temp 99.4 99.4 Pulse 101 Resp 18 20 20 18 B/P 164/87 Pulse Ox 98 O2 Delivery Room Air 08/14/16 08/14/16 08/14/16 08/14/16 03:20 07:00 07:45 07:50 Temp 98.1 98.1 98.1 98.1 Pulse 91 110 Resp 20 18 B/P 106/71 110/69 Pulse Ox 95 92 92 96 O2 Delivery Room Air Room Air Room Air Room Air 08/14/16 08:19 O2 Delivery Room Air Intake and Output 08/13/16 08/13/16 08/14/16 15:00 23:00 07:00 Intake Total 960 ml 480 ml Output Total 850 ml 800 ml 1000 ml Balance 110 ml -320 ml -1000 ml MARICRUZ MCCRACKEN MD Aug 14, 2016 10:12
[2016-08-14 10:54] VITALS: BP 119/85
[2016-08-14] MEDS: PANTOPRAZOLE 40 MG TABLET. PO SCH (11:13)
[2016-08-14] MEDS: DIPHENHYDRAMINE HCL 25 MG CAPSULE PO PRN ×2 (11:13→22:39)
[2016-08-14 14:41] VITALS: BP 120/87
[2016-08-14] MEDS ORDERED: POLYETHYLENE GLYCOL 3350 238 GM POWDER PO ONE (16:00)
[2016-08-14] MEDS ORDERED: MAGNESIUM CITRATE 296 ML SOLUTION. PO ONE (16:00)
[2016-08-14] MEDS ORDERED: BISACODYL 5 MG TABLET.DR. PO ONE ×2 (16:00→18:30)
[2016-08-14] MEDS: ONDANSETRON PF 4 MG/2 ML VIAL. IV PRN ×2 (16:10→22:39)
[2016-08-14 19:00] VITALS: BP 117/81
[2016-08-14 23:11] VITALS: BP 117/86
[2016-08-15] VITALS (7 sets, daily range): BP systolic 103–116; BP diastolic 64–80
[2016-08-15] MEDS: MORPHINE SULFATE 2 MG/ML DISP.SYRIN. IV PRN ×7 (02:03→23:27)
[2016-08-15] MEDS ORDERED: ACETAMINOPHEN 325 MG TABLET. PO PRN (05:56)
[2016-08-15] MEDS ORDERED: IV RINGERS,LACTATED 1000ML 1,000 ML IV SCH (07:00)
[2016-08-15 07:18] LABS: BASO # 0.1 x10^3/uL (0.0-0.2); BASO % 1 % (0-3); EOS % 16 % (0-3); HEMATOCRIT 40.2 % (39.0-53.0); HEMOGLOBIN 12.8 g/dL (13.0-17.5); LYMPH # 0.9 x10^3/uL (1.0-4.8); LYMPH % 13 % (24-48); MEAN CORPUSCULAR HEMOGLOBIN 26 pg (25-35); MEAN CORPUSCULAR HGB CONC 32 g/dL (31-37); MEAN CORPUSCULAR VOLUME 81 fL (79-100); MONO % 10 % (0-9); NEUT % 60 % (31-73); PLATELET COUNT 285 x10^3/uL (140-400); RED BLOOD COUNT 4.95 x10^6/uL (4.30-5.70); RED CELL DISTRIBUTION WIDTH 18.7 % (11.5-14.5)
[2016-08-15 07:21] LABS: CREATININE 1.3 mg/dL (0.7-1.3); GFR 63.6; POTASSIUM 3.7 mmol/L (3.5-5.1)
[2016-08-15] MEDS: ALBUTEROL SULFATE 2.5 MG/3 ML NEBU. NEB SCH ×4 (07:23→18:21)
[2016-08-15] MEDS: PANTOPRAZOLE 40 MG TABLET. PO SCH (07:30)
[2016-08-15] MEDS: FERROUS SULFATE 325 MG TABLET PO SCH (07:54)
[2016-08-15] MEDS: BUDESONIDE 0.5 MG/2 ML NEBU. NEB SCH ×2 (08:00→18:22)
[2016-08-15] MEDS: ONDANSETRON PF 4 MG/2 ML VIAL. IV PRN ×2 (11:51→20:29)
--- NOTE | 2016-08-15 12:22 | PDOC ---
PROGRESS NOTES Chief Complaint Chief Complaint cc: abdominal pain A/P 1. Intractable nausea, abdominal discomfort diarrhea. Unclear etiology, 2. Reflux esophagitis per diagnosis. 3. Asthma. Plan s/p EGD in last admission, Coloscopy today , anticipated DC if colonoscopy is normal. Clear liquid diet Pain control with iv morphine PRN duo nebs labs reviewed, Vitals Vitals Vital Signs Date Time Temp Pulse Resp B/P Pulse Ox O2 Delivery O2 Flow Rate FiO2 08/15/16 11:51 96 Room Air 08/15/16 11:00 97.8 80 16 103/64 97.8 Physical Exam General: Alert, Oriented X3 Heart: Normal S1, Normal S2 Lungs: Clear Abdomen: Normal bowel sounds Extremities: No clubbing Labs LABS Laboratory Tests Test 08/15/16 07:00 White Blood Count 7.0x10^3/uL (4.0-11.0) Red Blood Count 4.95x10^6/uL (4.30-5.70) Hemoglobin 12.8g/dL (13.0-17.5) Hematocrit 40.2% (39.0-53.0) Mean Corpuscular Volume 81fL (79-100) Mean Corpuscular Hemoglobin 26pg (25-35) Mean Corpuscular Hemoglobin Concent 32g/dL (31-37) Red Cell Distribution Width 18.7% (11.5-14.5) Platelet Count 285x10^3/uL (140-400) Neutrophils (%) (Auto) 60% (31-73) Lymphocytes (%) (Auto) 13% (24-48) Monocytes (%) (Auto) 10% (0-9) Eosinophils (%) (Auto) 16% (0-3) Basophils (%) (Auto) 1% (0-3) Neutrophils # (Auto) 4.2x10^3uL (1.8-7.7) Lymphocytes # (Auto) 0.9x10^3/uL (1.0-4.8) Monocytes # (Auto) 0.7x10^3/uL (0.0-1.1) Eosinophils # (Auto) 1.1x10^3/uL (0.0-0.7) Basophils # (Auto) 0.1x10^3/uL (0.0-0.2) Sodium Level 142mmol/L (136-145) Potassium Level 3.7mmol/L (3.5-5.1) Chloride Level 104mmol/L (98-107) Carbon Dioxide Level 25mmol/L (21-32) Anion Gap 13 (6-14) Blood Urea Nitrogen 3mg/dL (8-26) Creatinine 1.3mg/dL (0.7-1.3) Estimated GFR (Cockcroft-Gault) 63.6 Glucose Level 101mg/dL (70-99) Calcium Level 9.0mg/dL (8.5-10.1) Assessment and Plan Assessmemt and Plan Problems Medical Problems: (1) Abdominal pain Status: Acute (2) C. difficile colitis Status: Acute Problems: Comment Review of Relevant I have reviewed the following items héctor (where applicable) has been applied. Labs Laboratory Tests Test 08/13/16 17:30 08/14/16 04:00 08/15/16 07:00 Clostridium difficile Toxin (PCR) Negative (Negative) White Blood Count 8.8x10^3/uL (4.0-11.0) 7.0x10^3/uL (4.0-11.0) Red Blood Count 4.57x10^6/uL (4.30-5.70) 4.95x10^6/uL (4.30-5.70) Hemoglobin 11.7g/dL (13.0-17.5) 12.8g/dL (13.0-17.5) Hematocrit 37.7% (39.0-53.0) 40.2% (39.0-53.0) Mean Corpuscular Volume 82fL (79-100) 81fL (79-100) Mean Corpuscular Hemoglobin 26pg (25-35) 26pg (25-35) Mean Corpuscular Hemoglobin Concent 31g/dL (31-37) 32g/dL (31-37) Red Cell Distribution Width 18.7% (11.5-14.5) 18.7% (11.5-14.5) Platelet Count 261x10^3/uL (140-400) 285x10^3/uL (140-400) Neutrophils (%) (Auto) 70% (31-73) 60% (31-73) Lymphocytes (%) (Auto) 7% (24-48) 13% (24-48) Monocytes (%) (Auto) 6% (0-9) 10% (0-9) Eosinophils (%) (Auto) 16% (0-3) 16% (0-3) Basophils (%) (Auto) 1% (0-3) 1% (0-3) Neutrophils # (Auto) 6.2x10^3uL (1.8-7.7) 4.2x10^3uL (1.8-7.7) Lymphocytes # (Auto) 0.6x10^3/uL (1.0-4.8) 0.9x10^3/uL (1.0-4.8) Monocytes # (Auto) 0.6x10^3/uL (0.0-1.1) 0.7x10^3/uL (0.0-1.1) Eosinophils # (Auto) 1.4x10^3/uL (0.0-0.7) 1.1x10^3/uL (0.0-0.7) Basophils # (Auto) 0.1x10^3/uL (0.0-0.2) 0.1x10^3/uL (0.0-0.2) Sodium Level 143mmol/L (136-145) 142mmol/L (136-145) Potassium Level 4.2mmol/L (3.5-5.1) 3.7mmol/L (3.5-5.1) Chloride Level 108mmol/L (98-107) 104mmol/L (98-107) Carbon Dioxide Level 28mmol/L (21-32) 25mmol/L (21-32) Anion Gap 7 (6-14) 13 (6-14) Blood Urea Nitrogen 4mg/dL (8-26) 3mg/dL (8-26) Creatinine 1.2mg/dL (0.7-1.3) 1.3mg/dL (0.7-1.3) Estimated GFR (Cockcroft-Gault) 69.7 63.6 Glucose Level 86mg/dL (70-99) 101mg/dL (70-99) Calcium Level 8.6mg/dL (8.5-10.1) 9.0mg/dL (8.5-10.1) Laboratory Tests Test 08/15/16 07:00 White Blood Count 7.0x10^3/uL (4.0-11.0) Red Blood Count 4.95x10^6/uL (4.30-5.70) Hemoglobin 12.8g/dL (13.0-17.5) Hematocrit 40.2% (39.0-53.0) Mean Corpuscular Volume 81fL (79-100) Mean Corpuscular Hemoglobin 26pg (25-35) Mean Corpuscular Hemoglobin Concent 32g/dL (31-37) Red Cell Distribution Width 18.7% (11.5-14.5) Platelet Count 285x10^3/uL (140-400) Neutrophils (%) (Auto) 60% (31-73) Lymphocytes (%) (Auto) 13% (24-48) Monocytes (%) (Auto) 10% (0-9) Eosinophils (%) (Auto) 16% (0-3) Basophils (%) (Auto) 1% (0-3) Neutrophils # (Auto) 4.2x10^3uL (1.8-7.7) Lymphocytes # (Auto) 0.9x10^3/uL (1.0-4.8) Monocytes # (Auto) 0.7x10^3/uL (0.0-1.1) Eosinophils # (Auto) 1.1x10^3/uL (0.0-0.7) Basophils # (Auto) 0.1x10^3/uL (0.0-0.2) Sodium Level 142mmol/L (136-145) Potassium Level 3.7mmol/L (3.5-5.1) Chloride Level 104mmol/L (98-107) Carbon Dioxide Level 25mmol/L (21-32) Anion Gap 13 (6-14) Blood Urea Nitrogen 3mg/dL (8-26) Creatinine 1.3mg/dL (0.7-1.3) Estimated GFR (Cockcroft-Gault) 63.6 Glucose Level 101mg/dL (70-99) Calcium Level 9.0mg/dL (8.5-10.1) Medications Current Medications Sodium Chloride (Iv Sodium Chloride 0.9% 1000ml Bag) 1,000 ml @ 1,000 mls/hr Q1H IV Last administered on 08/12/16 23:58; Start 08/12/16 at 23:30; Stop at 00:29; Status DC Ondansetron HCl (Zofran) 4 mg 1X ONCE IV Last administered on 08/12/16 23:59 ; Start 08/12/16 at 23:30; Stop 08/12/16 at 23:31; Status DC Fentanyl Citrate (Fentanyl 2ml Vial) 25 mcg PRN Q15MIN PRN IV PAIN GREATER THAN 3/10 Last administered on 08/13/16 03:04; Start 08/12/16 at 23:30; Stop at 09:41; Status DC Albuterol/ Ipratropium (Duoneb) 3 ml 1X ONCE NEB Last administered on 00:46; Start 08/13/16 at 00:45; Stop 08/13/16 at 00:46; Status DC Hydromorphone HCl (Dilaudid) 1 mg 1X ONCE IV Last administered on 08/13/16 00 :56; Start 08/13/16 at 00:45; Stop 08/13/16 at 00:46; Status DC Ondansetron HCl (Zofran) 4 mg PRN Q8HRS PRN IV NAUSEA/VOMITING Last administered on 08/13/16 09:30; Start 08/13/16 at 03:15; Stop 08/13/16 at 18:05 ; Status DC Fentanyl Citrate 50 mcg 50 mcg PRN Q3HRS PRN IV PAIN Last administered on 09:32; Start 08/13/16 at 03:15; Stop 08/13/16 at 09:41; Status DC Sodium Chloride (Iv Sodium Chloride 0.9% 1000ml Bag) 1,000 ml @ 125 mls/hr Q8H IV Last administered on 08/13/16 20:13; Start 08/13/16 at 03:15; Stop at 03:14; Status DC Diphenhydramine HCl (Benadryl) 25 mg PRN Q4HRS PRN PO ITCHING Last administered on 08/14/16 22:39; Start 08/13/16 at 06:30 Morphine Sulfate 2 mg PRN Q2HR PRN IV PAIN Last administered on 08/15/16 11:51 ; Start 08/13/16 at 09:45 Acetaminophen (Tylenol) 325 mg PRN Q6HRS PRN PO MILD PAIN / TEMP; Start at 09:45; Stop 08/15/16 at 05:56; Status DC Acetaminophen/ Hydrocodone Bitart (Lortab 5/325) 1 tab PRN Q6HRS PRN PO MODERATE TO SEVERE PAIN Last administered on 08/14/16 22:40; Start 08/13/16 at 09:45 Hydralazine HCl (Apresoline) 10 mg PRN Q4HRS PRN IVP ELEVATED BP, SEE COMMENTS ; Start 08/13/16 at 09:45 Ondansetron HCl (Zofran) 4 mg PRN Q8HRS PRN IV NAUSEA/VOMITING Last administered on 08/14/16 16:10; Start 08/13/16 at 09:45; Stop 08/15/16 at 05:56 ; Status DC Ferrous Sulfate (Feosol) 325 mg DAILY PO Last administered on 08/14/16 08:13; Start 08/14/16 at 09:00 Albuterol Sulfate (Ventolin Neb Soln) 2.5 mg PRN Q4HRS PRN NEB WHEEZING; Start 08/13/16 at 15:00 Non-Formulary Medication 2 puff BID IH ; Start 08/13/16 at 21:00; Status UNV Albuterol Sulfate (Ventolin Neb Soln) 2.5 mg RTQID NEB Last administered on 11:25; Start 08/13/16 at 16:00 Budesonide (Pulmicort) 0.5 mg RTBID NEB Last administered on 08/15/16 08:00; Start 08/13/16 at 20:00 Magnesium Citrate (Citroma) 296 ml 1X ONCE PO Last administered on 08/14/16 16:03; Start 08/14/16 at 16:00; Stop 08/14/16 at 16:01; Status DC Polyethylene Glycol (miraLAX Powder BULK BOTTLE) 238 gm 1X ONCE PO Last administered on 08/14/16 16:36; Start 08/14/16 at 16:00; Stop 08/14/16 at 16:01 ; Status DC Bisacodyl (Dulcolax Tab) 10 mg 1X ONCE PO Last administered on 08/14/16 16:04 ; Start 08/14/16 at 16:00; Stop 08/14/16 at 16:01; Status DC Pantoprazole Sodium 40 mg 40 mg DAILYAC PO Last administered on 08/14/16 11:13 ; Start 08/14/16 at 11:30 Lactated Ringer's (Iv Lactated Ringers) 1,000 ml @ 50 mls/hr Q20H IV ; Start at 07:00; Stop 08/15/16 at 18:59 Bisacodyl (Dulcolax Tab) 10 mg 1X ONCE PO Last administered on 08/14/16 18:26 ; Start 08/14/16 at 18:30; Stop 08/14/16 at 18:31; Status DC Acetaminophen (Tylenol) 325 mg PRN Q6HRS PRN PO MILD PAIN / TEMP; Start at 05:56 Ondansetron HCl (Zofran) 4 mg PRN Q8HRS PRN IV NAUSEA/VOMITING Last administered on 08/15/16 11:51; Start 08/15/16 at 05:56 Active Scripts Active Ferrous Sulfate 325 Mg Tablet 1 Tab PO DAILY [place] 5-325 Tablet (Acetaminophen/Hydrocodone Bitart) 1 Each Tablet 1 Tab PO PRN Q6HRS PRN Metronidazole 500 Mg Tablet 1 Tab PO TID Zofran (Ondansetron Hcl) 4 Mg Tablet 1 Tab PO Q8HRS PRN Reported Proventil Hfa Inhaler (Albuterol Sulfate) 6.7 Gm Hfa.aer.ad 1 Puff IH PRN Q4HRS PRN Symbicort 160-4.5 Mcg Inhaler (Budesonide/Formoterol Fumarate) 10.2 Gm Hfa.aer.ad 2 Puff IH BID Vitals/I & O Vital Sign - Last 24 Hours 08/14/16 08/14/16 08/14/16 08/14/16 14:41 15:38 19:00 19:58 Temp 98.6 97.7 98.6 97.7 Pulse 121 121 Resp 14 20 B/P 120/87 117/81 Pulse Ox 92 98 O2 Delivery Room Air Room Air Room Air Room Air 08/14/16 08/14/16 08/14/16 08/14/16 20:00 22:40 23:11 23:17 Temp 99.7 99.7 Pulse 124 Resp 20 20 20 B/P 117/86 Pulse Ox 93 O2 Delivery Room Air Room Air 08/15/16 08/15/16 08/15/16 08/15/16 00:53 02:03 02:32 05:24 Temp 98.1 98.1 Pulse 94 Resp 20 18 20 20 B/P 105/74 Pulse Ox 95 O2 Delivery Room Air Room Air 08/15/16 08/15/16 08/15/16 08/15/16 05:54 07:00 07:25 07:28 Temp 97.9 97.9 Pulse 96 Resp 16 16 B/P 105/74 Pulse Ox 94 94 94 O2 Delivery Room Air Room Air Room Air 08/15/16 08/15/16 08/15/16 08/15/16 08:00 08:00 08:30 11:00 Temp 97.8 97.8 Pulse 80 Resp 12 16 B/P 103/64 Pulse Ox 94 94 96 O2 Delivery Room Air Room Air Room Air Room Air 08/15/16 08/15/16 11:26 11:51 Pulse Ox 96 O2 Delivery Room Air Room Air Intake and Output 08/14/16 08/14/16 08/15/16 15:00 23:00 07:00 Intake Total 840 ml Output Total 500 ml 900 ml Balance 340 ml -900 ml MARICRUZ MCCRACKEN MD Aug 15, 2016 12:22
[2016-08-15] MEDS ORDERED: HYDROMORPHONE 2 MG/ML VIAL. IM ONE (12:30)
[2016-08-15] MEDS ORDERED: HYDROMORPHONE 2 MG/ML VIAL. IV ONE (12:45)
[2016-08-15] MEDS ORDERED: LIDOCAINE 1% 1 ML SYRINGE. ID PRN (15:00)
[2016-08-15] MEDS: IV RINGERS,LACTATED 1000ML 1,000 ML IV SCH ×2 (15:00→22:56)
[2016-08-15] MEDS ORDERED: FENTANYL PF 100 MCG/2 ML VIAL. IV PRN ×2 (15:00)
[2016-08-15] MEDS ORDERED: PROPOFOL 40 ML IV ONE (15:41)
[2016-08-15] MEDS ORDERED: LIDOCAINE 2% PF Vial for OR 5 ML VIAL. ONE (15:41)
--- NOTE | 2016-08-15 16:17 | PDOC4 ---
PROCEDURE Procedure Colonoscopy/ileoscopy Indication: Iron deficiency/abd pain/diarrhea Meds: per anesthesia Findings: Normal to TI except small internal hemorrhoids. Gab. well. IMP: hemorrhoids small bowel problem-->KRYSTAL? REC: OK to feed. STUART SALCIDO MD Aug 15, 2016 16:17
[2016-08-15] MEDS: HYDROCODONE/APAP 5/325MG TABLET. PO PRN ×2 (17:11→23:27)
[2016-08-15] MEDS: DIPHENHYDRAMINE HCL 25 MG CAPSULE PO PRN (20:28)
[2016-08-16 02:47] VITALS: BP 99/67
[2016-08-16] MEDS: DIPHENHYDRAMINE HCL 25 MG CAPSULE PO PRN (02:54)
[2016-08-16] MEDS: MORPHINE SULFATE 2 MG/ML DISP.SYRIN. IV PRN ×5 (02:55→14:26)
[2016-08-16 04:48] LABS: BASO # 0.1 x10^3/uL (0.0-0.2); BASO % 1 % (0-3); EOS % 29 % (0-3); HEMATOCRIT 37.6 % (39.0-53.0); HEMOGLOBIN 11.7 g/dL (13.0-17.5); LYMPH # 1.2 x10^3/uL (1.0-4.8); LYMPH % 23 % (24-48); MEAN CORPUSCULAR HEMOGLOBIN 26 pg (25-35); MEAN CORPUSCULAR HGB CONC 31 g/dL (31-37); MEAN CORPUSCULAR VOLUME 82 fL (79-100); MONO % 13 % (0-9); NEUT % 35 % (31-73); PLATELET COUNT 272 x10^3/uL (140-400); RED BLOOD COUNT 4.58 x10^6/uL (4.30-5.70); RED CELL DISTRIBUTION WIDTH 18.7 % (11.5-14.5); WHITE BLOOD COUNT 5.3 x10^3/uL (4.0-11.0)
[2016-08-16 04:56] LABS: CALCIUM 8.4 mg/dL (8.5-10.1); CREATININE 1.3 mg/dL (0.7-1.3); GFR 63.6
[2016-08-16] MEDS ORDERED: HYDROMORPHONE 2 MG/ML VIAL. IVP ONE (05:00)
[2016-08-16] MEDS: DIPHENHYDRAMINE 50 MG/ML VIAL. IVP PRN ×2 (05:02→14:29)
[2016-08-16] MEDS ORDERED: PANTOPRAZOLE 40 MG TABLET.DR. PO SCH (06:06)
[2016-08-16 07:20] VITALS: BP 115/72
[2016-08-16] MEDS: ALBUTEROL SULFATE 2.5 MG/3 ML NEBU. NEB SCH ×3 (07:27→15:06)
[2016-08-16] MEDS: BUDESONIDE 0.5 MG/2 ML NEBU. NEB SCH (07:27)
[2016-08-16] MEDS ORDERED: BARIUM SULFATE 60% 355 ML SUSP PO ONE (07:45)
[2016-08-16] MEDS: FERROUS SULFATE 325 MG TABLET PO SCH (09:00)
[2016-08-16] MEDS: ONDANSETRON PF 4 MG/2 ML VIAL. IV PRN (09:00)
--- NOTE | 2016-08-16 13:06 | PDOC ---
Subjective: Subjective: Out for imaging. Objective: Vital Signs: Vital Signs Date Time Temp Pulse Resp B/P Pulse Ox O2 Delivery O2 Flow Rate FiO2 08/16/16 11:51 Room Air 08/16/16 07:35 96 08/16/16 07:20 97.9 87 20 115/72 97.9 08/15/16 18:11 3.0 Labs: Laboratory Tests Test 08/16/16 03:30 White Blood Count 5.3x10^3/uL Red Blood Count 4.58x10^6/uL Hemoglobin 11.7g/dL Hematocrit 37.6% Mean Corpuscular Volume 82fL Mean Corpuscular Hemoglobin 26pg Mean Corpuscular Hemoglobin Concent 31g/dL Red Cell Distribution Width 18.7% Platelet Count 272x10^3/uL Neutrophils (%) (Auto) 35% Lymphocytes (%) (Auto) 23% Monocytes (%) (Auto) 13% Eosinophils (%) (Auto) 29% Basophils (%) (Auto) 1% Neutrophils # (Auto) 1.8x10^3uL Lymphocytes # (Auto) 1.2x10^3/uL Monocytes # (Auto) 0.7x10^3/uL Eosinophils # (Auto) 1.5x10^3/uL Basophils # (Auto) 0.1x10^3/uL Sodium Level 143mmol/L Potassium Level 4.0mmol/L Chloride Level 106mmol/L Carbon Dioxide Level 27mmol/L Anion Gap 10 Blood Urea Nitrogen 7mg/dL Creatinine 1.3mg/dL Estimated GFR (Cockcroft-Gault) 63.6 Glucose Level 94mg/dL Calcium Level 8.4mg/dL Imaging: Colonoscopy 08/15/16: normal except internal hemorrhoids. Small bowel x-ray 08/16/16: PENDING. PE: no exam A/P: Recurrent abd pain, diarrhea, n/v, KRYSTAL, h/o C Diff -EGD last week w/ reflux, colonoscopy yesterday unrevealing, normal CT at [facility] in 04/2016 -s/p cholecystectomy and appendectomy -C Diff NEGATIVE -- Await SB x-ray. MARLENE MARC Aug 16, 2016 13:06
--- NOTE | 2016-08-16 13:43 | PDOC ---
PROGRESS NOTES Chief Complaint Chief Complaint Abdominal pain ASSESSMENT AND PLAN: 1. Recurrent, Intractable nausea, abdominal discomfort diarrhea. Unclear etiology. EGD earlier this month with reflux esophagitis, colonoscopy yesterday w/o significant findings. With apparent KRYSTAL, get SBFT: no abn 2. GERD: PPI 3. Asthma: no acute issues. nebs PRN 4. Dispo: home today Vitals Vitals Vital Signs Date Time Temp Pulse Resp B/P Pulse Ox O2 Delivery O2 Flow Rate FiO2 08/16/16 11:51 Room Air 08/16/16 07:35 96 08/16/16 07:20 97.9 87 20 115/72 97.9 08/15/16 18:11 3.0 Physical Exam General: Alert, Oriented X3 Heart: Regular rate Lungs: Clear Abdomen: Normal bowel sounds Extremities: No clubbing Skin: No rashes Labs LABS Laboratory Tests Test 08/16/16 03:30 White Blood Count 5.3x10^3/uL (4.0-11.0) Red Blood Count 4.58x10^6/uL (4.30-5.70) Hemoglobin 11.7g/dL (13.0-17.5) Hematocrit 37.6% (39.0-53.0) Mean Corpuscular Volume 82fL (79-100) Mean Corpuscular Hemoglobin 26pg (25-35) Mean Corpuscular Hemoglobin Concent 31g/dL (31-37) Red Cell Distribution Width 18.7% (11.5-14.5) Platelet Count 272x10^3/uL (140-400) Neutrophils (%) (Auto) 35% (31-73) Lymphocytes (%) (Auto) 23% (24-48) Monocytes (%) (Auto) 13% (0-9) Eosinophils (%) (Auto) 29% (0-3) Basophils (%) (Auto) 1% (0-3) Neutrophils # (Auto) 1.8x10^3uL (1.8-7.7) Lymphocytes # (Auto) 1.2x10^3/uL (1.0-4.8) Monocytes # (Auto) 0.7x10^3/uL (0.0-1.1) Eosinophils # (Auto) 1.5x10^3/uL (0.0-0.7) Basophils # (Auto) 0.1x10^3/uL (0.0-0.2) Sodium Level 143mmol/L (136-145) Potassium Level 4.0mmol/L (3.5-5.1) Chloride Level 106mmol/L (98-107) Carbon Dioxide Level 27mmol/L (21-32) Anion Gap 10 (6-14) Blood Urea Nitrogen 7mg/dL (8-26) Creatinine 1.3mg/dL (0.7-1.3) Estimated GFR (Cockcroft-Gault) 63.6 Glucose Level 94mg/dL (70-99) Calcium Level 8.4mg/dL (8.5-10.1) Review of Systems Review of Systems eating post SBFT, no apparent sx until mentioning that he seems to be tolerating food well, then braces arm around abd, but does not slow down eating Comment Review of Relevant LYDIA SMITH MD Aug 16, 2016 13:43
[2016-08-16] MEDS: HYDROCODONE/APAP 5/325MG TABLET. PO PRN (14:26)
--- NOTE | 2016-08-16 15:01 | RAD ---
Indication abdominal pain. In anticipation of a small bowel series a preliminary film of the abdomen was obtained. The abdominal gas pattern is normal. Clips are noted in the gallbladder fossa. Contrast was administered orally and followed through the small bowel to the large bowel. Transit to the large bowel was somewhat slow. Transit time from the stomach to the large bowel was approximately 3 hours. No definite mucosal abnormality mass or significant additional finding in the small bowel was seen. The terminal ileum appeared normal. 2 spot images were obtained associated with the exam. Fluoroscopy time associated with the study was 24 seconds. IMPRESSION: Moderate delay in transit to the large bowel otherwise no significant finding
[2016-08-16 15:30] VITALS: BP 109/70
[2016-08-16] MEDS ORDERED: PROVENTIL HFA6.7 GM IH (16:29)
[2016-08-16] MEDS ORDERED: FERR-26 PO (16:29)
[2016-08-16] MEDS ORDERED: PHEN16.277 PO (16:29)
[2016-08-16] MEDS ORDERED: ONDA4TAB7 PO (16:30)
--- NOTE | 2016-08-18 22:09 | DS ---
DATE OF DISCHARGE: 08/16/2016 CHIEF COMPLAINT: Abdominal pain. HOSPITAL COURSE: The patient is a 35-year-old gentleman who presented to the Emergency Room with intractable nausea, abdominal discomfort as well as diarrhea. The etiology was unclear. He had undergone EGD earlier this month after presenting with the same symptoms. Reflux esophagitis had been found. Colonoscopy was added during his current admission without any significant findings. As he was mildly iron deficient, small bowel follow-through was obtained, which did not reveal any abnormalities. He was therefore advised to continue his PPI for GERD and was discharged to home. DISCHARGE DATE: 08/16/2016. DISCHARGE PHYSICAL EXAMINATION: Please refer to note from same day. DISCHARGE DISPOSITION: To home. DISCHARGE CONDITION: Improved. DISCHARGE MEDICATIONS: Please refer to MAR. DISCHARGE INSTRUCTIONS: The patient will follow up with PCP in 1 week. LYDIA SMITH MD DR: MARCUS/nts JOB#: [id number] / [id number]
== END 2016-08-16 18:00 | disposition home or self-care (01) | DRG 392 ==
LOC: ER 22:38 → 5 SOUTH 08-13 02:00
PROVIDERS: ADMIT Internal Medicine Hematology & Oncology; ATTEND Internal Medicine Hematology & Oncology
PROC: 0DJD8ZZ Inspection of Lower Intestinal Tract, Via Natural or Artificial Opening Endoscopic (ICD-10-PCS; principal; 2016-08-15 15:30)
DX: K21.0 Gastro-esophageal reflux disease with esophagitis (principal); R11.0 Nausea; E61.1 Iron deficiency; J45.909 Unspecified asthma, uncomplicated; D72.1 Eosinophilia; R19.7 Diarrhea, unspecified; K64.8 Other hemorrhoids; G43.909 Migraine, unspecified, not intractable, without status migrainosus; Z90.49 Acquired absence of other specified parts of digestive tract; Z88.1 Allergy status to other antibiotic agents; Z88.5 Allergy status to narcotic agent; Z88.8 Allergy status to other drugs, medicaments and biological substances
CPT/HCPCS: 36415; 74022; 74250; 80048; 80053; 83690; 85007; 85027; 87324; 94250; 94640; 94760; 96374; 96375; 99406; J1170; J1200; J2270; J2405; J2704; J3010; J7030; J7120; J7620; Q0163; 99285-25

== ENCOUNTER 2016-08-19 21:00 | Emergency (ER) | payer SELFPAY ==
[~2016-08-19 21:00] MED LIST changes: +PHEN16.277 PO
[2016-08-19] MEDS ORDERED: IV NORMAL SALINE 1000ML BAG 1,000 ML IV ONE (22:00)
[2016-08-19 22:01] LABS: BASO % 0 % (0-3); EOS % 0 % (0-3); HEMATOCRIT 41.4 % (39.0-53.0); HEMOGLOBIN 13.2 g/dL (13.0-17.5); LYMPH # 0.3 x10^3/uL (1.0-4.8); LYMPH % 6 % (24-48); MEAN CORPUSCULAR HEMOGLOBIN 26 pg (25-35); MEAN CORPUSCULAR HGB CONC 32 g/dL (31-37); MEAN CORPUSCULAR VOLUME 81 fL (79-100); MONO % 1 % (0-9); NEUT % 94 % (31-73); PLATELET COUNT 369 x10^3/uL (140-400); RED BLOOD COUNT 5.09 x10^6/uL (4.30-5.70); RED CELL DISTRIBUTION WIDTH 18.9 % (11.5-14.5); WHITE BLOOD COUNT 5.9 x10^3/uL (4.0-11.0)
[2016-08-19 22:04] LABS: BILIRUBIN,URINE NEGATIVE (NEG); GLUCOSE,URINE NEGATIVE (NEG); NITRITE,URINE NEGATIVE (NEG); PH,URINE 6.5
[2016-08-19 22:09] LABS: CALCIUM 9.3 mg/dL (8.5-10.1); CREATININE 1.2 mg/dL (0.7-1.3); GFR 69.7
[2016-08-19] MEDS: FENTANYL PF 100 MCG/2 ML VIAL. IV PRN ×2 (22:09→22:35)
[2016-08-19 22:15] LABS: ALBUMIN 3.9 g/dL (3.4-5.0); ALBUMIN/GLOBULIN RATIO 1.1 (1.0-1.7); TOTAL BILIRUBIN 0.2 mg/dL (0.2-1.0); TOTAL PROTEIN 7.6 g/dL (6.4-8.2)
[2016-08-19] MEDS ORDERED: IPRATRPIUM/ALBUTEROL 0.5/2.5MG 3 ML NEBU. NEB ONE ×2 (22:15)
[2016-08-19] MEDS ORDERED: ONDANSETRON PF 4 MG/2 ML VIAL. IV ONE (22:15)
[2016-08-19 22:22] LABS: BACTERIA,URINE FEW /HPF (0-FEW); PROTEIN,URINE NEGATIVE (NEG-TRACE); SQUAMOUS EPITHELIAL CELL,UR OCC /LPF; UROBILINOGEN,URINE 0.2 mg/dL (0.2 mg/dL); WBC,URINE OCC /HPF (0-4)
[2016-08-19] MEDS ORDERED: ONDA4TAB7 PO (22:48)
[2016-08-19] MEDS ORDERED: OXYC-323 PO (22:48)
--- NOTE | 2016-08-19 22:48 | PHYS DOC ---
Past Medical History Past Medical History: Asthma, Other Additional Past Medical Histor: C-DIFF Past Surgical History: Appendectomy, Cholecystectomy Additional Past Surgical Histo: NASAL, CYST ON RIGHT WRIST Alcohol Use: None Drug Use: None Adult General Chief Complaint Chief Complaint: ABDOMINAL PAIN HPI HPI Patient is a 35 year old male who presents with abdominal pain. Patient reports about 2 weeks history of epigastric and right upper quadrant abdominal pain associated with nausea, one episode of vomiting yesterday, loose stools. Denies fevers or chills, hematemesis, hematochezia or melena, dysuria or hematuria. Has had multiple recent hospital admissions within the past 2 weeks, underwent colonoscopy, small bowel follow-through, gastric biopsies. He states Dr. Villanueva concerned that he could have gastric cancer. He has been referred for follow-up with an oncologist with an appointment in 4 days, but has not yet received results of biopsies. He recently completed antibiotics for C. difficile colitis. History of asthma, appendectomy, cholecystectomy. Does not have a primary care physician. Review of Systems Review of Systems Constitutional: Denies fever or chills Eyes: Denies change in visual acuity HENT: Denies nasal congestion or sore throat Respiratory: Denies cough or shortness of breath Cardiovascular: Denies chest pain or edema GI: Reports abdominal pain, nausea, vomiting, and diarrhea, denies bloody stools : Denies dysuria or hematuria Musculoskeletal: Denies back pain or joint pain Integument: Denies rash or skin lesions Neurologic: Denies headache, focal weakness or sensory changes Current Medications Current Medications Current Medications Medications (Trade) Dose Ordered Sig/Sugar Start Time Stop Time Status Last Admin Dose Admin Albuterol/ Ipratropium (Duoneb) 3 ml 1X ONCE 08/19/16 22:15 08/19/16 22:16 DC 08/19/16 22:26 3 ML Albuterol/ Ipratropium 3 ml 3 ml 1X ONCE 08/19/16 22:15 08/19/16 22:15 DC Fentanyl Citrate (Fentanyl 2ml Vial) 50 mcg PRN Q15MIN PRN 08/19/16 22:00 08/20/16 21:59 08/19/16 22:35 50 MCG Hydromorphone HCl (Dilaudid) 1 mg 1X ONCE 08/19/16 23:15 08/19/16 23:16 DC 08/19/16 22:55 1 MG Ondansetron HCl (Zofran) 4 mg 1X ONCE 08/19/16 22:15 08/19/16 22:16 DC 08/19/16 22:09 4 MG Sodium Chloride (Iv Sodium Chloride 0.9% 1000ml Bag) 1,000 ml @ 1,000 mls/hr 1X ONCE 08/19/16 22:00 08/19/16 22:59 DC 08/19/16 22:08 1,000 MLS/HR Allergies Allergies Allergies Coded Allergies Type Severity Reaction Last Updated Verified NSAIDS (Non-Steroidal Anti-Inflamma Allergy Severe Anaphylaxis 08/15/16 Yes promethazine Allergy Severe Anxiety 08/15/16 Yes chlorpheniramine Allergy Intermediate 08/15/16 Yes levofloxacin Allergy Intermediate 08/15/16 Yes lorazepam Allergy Intermediate 08/15/16 Yes metoclopramide Allergy Intermediate 08/15/16 Yes phenylephrine Allergy Intermediate 08/15/16 Yes scopolamine Allergy Intermediate 08/15/16 Yes tramadol Allergy Intermediate 08/15/16 Yes Physical Exam Physical Exam Constitutional: Well developed, well nourished, no acute distress, non-toxic appearance. HENT: Normocephalic, atraumatic, bilateral external ears normal, oropharynx moist, nose normal. Eyes: conjunctiva normal, no discharge. eye patch to left eye. Neck: supple, no stridor. Cardiovascular: RRR, no murmurs, no edema. Lungs & Thorax: LCTAB, no wheezing, no respiratory distress. Abdomen: normal bowel sounds, soft, mild epigastric tenderness without rebound/ guarding, no masses or pulsatile masses, nondistended. Skin: Warm, dry, no erythema, no rash. Back: No tenderness, no CVA tenderness. Extremities: No tenderness, no edema. Neurologic: Alert and oriented X 3, no focal deficits noted. Psychologic: Affect normal, judgement normal, mood normal. Current Patient Data Vital Signs Vital Signs Date Time Temp Pulse Resp B/P Pulse Ox O2 Delivery O2 Flow Rate FiO2 08/19/16 22:35 18 08/19/16 22:29 97 Room Air 08/19/16 21:45 98.3 98.3 08/19/16 21:03 99 119/87 Lab Values Laboratory Tests Test 08/19/16 21:45 White Blood Count 5.9x10^3/uL (4.0-11.0) Red Blood Count 5.09x10^6/uL (4.30-5.70) Hemoglobin 13.2g/dL (13.0-17.5) Hematocrit 41.4% (39.0-53.0) Mean Corpuscular Volume 81fL (79-100) Mean Corpuscular Hemoglobin 26pg (25-35) Mean Corpuscular Hemoglobin Concent 32g/dL (31-37) Red Cell Distribution Width 18.9% (11.5-14.5) H Platelet Count 369x10^3/uL (140-400) Neutrophils (%) (Auto) 94% (31-73) H Lymphocytes (%) (Auto) 6% (24-48) L Monocytes (%) (Auto) 1% (0-9) Eosinophils (%) (Auto) 0% (0-3) Basophils (%) (Auto) 0% (0-3) Neutrophils # (Auto) 5.5x10^3uL (1.8-7.7) Lymphocytes # (Auto) 0.3x10^3/uL (1.0-4.8) L Monocytes # (Auto) 0.0x10^3/uL (0.0-1.1) Eosinophils # (Auto) 0.0x10^3/uL (0.0-0.7) Basophils # (Auto) 0.0x10^3/uL (0.0-0.2) Segmented Neutrophils % 94% (35-66) H Lymphocytes % 6% (24-48) L Platelet Estimate Adequate (ADEQUATE) Poikilocytosis Slight Anisocytosis Slight Urine Collection Type Unknown Urine Color Yellow Urine Clarity Clear Urine pH 6.5 Urine Specific Cantrall 1.025 Urine Protein Negativemg/dL (NEG-TRACE) Urine Glucose (UA) Negativemg/dL (NEG) Urine Ketones (Stick) Negativemg/dL (NEG) Urine Blood Negative (NEG) Urine Nitrite Negative (NEG) Urine Bilirubin Negative (NEG) Urine Urobilinogen Dipstick 0.2mg/dL (0.2 mg/dL) Urine Leukocyte Esterase Negative (NEG) Urine RBC 1-2/HPF (0-2) Urine WBC Occ/HPF (0-4) Urine Squamous Epithelial Cells Occ/LPF Urine Bacteria Few/HPF (0-FEW) Urine Mucus Slight/LPF Sodium Level 140mmol/L (136-145) Potassium Level 5.0mmol/L (3.5-5.1) Chloride Level 105mmol/L (98-107) Carbon Dioxide Level 23mmol/L (21-32) Anion Gap 12 (6-14) Blood Urea Nitrogen 19mg/dL (8-26) Creatinine 1.2mg/dL (0.7-1.3) Estimated GFR (Cockcroft-Gault) 69.7 BUN/Creatinine Ratio 16 (6-20) Glucose Level 131mg/dL (70-99) H Calcium Level 9.3mg/dL (8.5-10.1) Total Bilirubin 0.2mg/dL (0.2-1.0) Aspartate Amino Transferase (AST) 14U/L (15-37) L Alanine Aminotransferase (ALT) 23U/L (16-63) Alkaline Phosphatase 73U/L (46-116) Total Protein 7.6g/dL (6.4-8.2) Albumin 3.9g/dL (3.4-5.0) Albumin/Globulin Ratio 1.1 (1.0-1.7) Lipase 156U/L (73-393) Laboratory Tests 08/19/16 21:45 Laboratory Tests 08/19/16 21:45 EKG EKG [] Radiology/Procedures Radiology/Procedures [] Course & Med Decision Making Course & Med Decision Making Pertinent Labs and Imaging studies reviewed. (See chart for details) Patient presents with abdominal pain. He states that this pain is typical of what he is been experiencing, recently ran out of pain medication. He had febrile temperature recorded at triage but normal range temperature on reassessment without any interventions. Labs unremarkable for any acute process , improving after receiving pain medication and antiemetics here. He requested discharge home from the hospital. Gave prescription for Percocet for severe pain and Zofran for nausea. No drinking alcohol or driving while taking Percocet. Already has follow-up appointment with oncology on Friday and I encouraged him to keep this appointment. Return to the emergency department for high fever, severe pain, uncontrolled vomiting, any otherwise worsening condition. Discharged home in stable condition. [] Dragon Disclaimer Dragon Disclaimer This electronic medical record was generated, in whole or in part, using a voice recognition dictation system. Departure Departure Impression: Primary Impression: Abdominal pain Disposition: HOME, SELF-CARE Condition: IMPROVED Referrals: NO PCP (PCP) Patient Instructions: Abdominal Pain, [id number] Additional Instructions: You were seen in the emergency department today for abdominal pain. Labs did not show any serious abnormalities. You felt better and wanted to go home. Please use Zofran as needed for nausea and Percocet for severe pain. No drink alcohol or driving while taking this medication. Keep scheduled follow-up appointment on Friday. Return to the emergency department for high fever, severe pain, uncontrolled vomiting, any otherwise worsening condition. Scripts Oxycodone/Apap 5-325 (Percocet 5-325 Mg Tablet)1 Each Tablet1-2 Tab PO Q4-6HRS PRN SEVERE PAIN #15 TAB Prov:QUIANA SLADE MD 08/19/16 Ondansetron Hcl (Zofran)4 Mg Tablet1 Tab PO Q6HRS PRN NAUSEA #20 TAB Prov:QUIANA SLADE MD 08/19/16 QUIANA SLADE MD Aug 19, 2016 22:48
[2016-08-19 22:51] LABS: ANISOCYTOSIS SLIGHT; PLT ESTIMATE ADEQUATE (ADEQUATE)
[2016-08-19 22:52] LABS: POIKILOCYTOSIS SLIGHT
[2016-08-19 23:00] VITALS: BP 132/82
[2016-08-19] MEDS ORDERED: HYDROMORPHONE 2 MG/ML VIAL. IV ONE (23:15)
== END 2016-08-19 23:10 | disposition home or self-care (01) ==
LOC: ER 21:00
DX: R10.11 Right upper quadrant pain (principal); R10.13 Epigastric pain; R11.2 Nausea with vomiting, unspecified; J45.909 Unspecified asthma, uncomplicated; Z90.49 Acquired absence of other specified parts of digestive tract; Z88.1 Allergy status to other antibiotic agents; Z88.8 Allergy status to other drugs, medicaments and biological substances; Z88.5 Allergy status to narcotic agent
CPT/HCPCS: 36415; 80053; 81001; 83690; 85007; 85027; 94250; 94640; 96361; 96374; 96375; 99284; J1170; J2405; J3010; J7030; J7620

== ENCOUNTER 2016-08-21 12:41 | Emergency (ER) | payer SELFPAY ==
[~2016-08-21] VITALS: Ht 167.6 cm; Wt 68.0 kg
[~2016-08-21 12:41] MED LIST changes: +OXYC-323 PO
[2016-08-21 13:14] VITALS: BP 115/83
[2016-08-21] MEDS ORDERED: IV NORMAL SALINE 1000ML BAG 1,000 ML IV SCH (14:00)
--- NOTE | 2016-08-21 14:05 | PHYS DOC ---
Past Medical History Past Medical History: Asthma, Other Additional Past Medical Histor: C-DIFF Past Surgical History: Appendectomy, Cholecystectomy Additional Past Surgical Histo: NASAL, CYST ON RIGHT WRIST Alcohol Use: None Drug Use: None Adult General Chief Complaint Chief Complaint: ABDOMINAL PAIN HPI HPI Patient is a 35 year old male complaining of abdominal pain. The patient states that he has had abdominal pain since March or April. He actually had a cholecystectomy in January for acute cholecystitis done at a hospital in [facility], states after that surgery he got C. difficile, he was treated with metronidazole and vancomycin and it finally did resolve. He was then okay for maybe about a month and in March or April he started having some mostly upper abdominal pain. He sometimes has diarrhea and sometimes has formed stools. He never sees any blood in his stool or maroon stools but sometimes sees a tarry stool. He does have nausea and vomiting at times. He's had no vomiting today. His last stool was twice this morning, the first one was hard and the second one was tarry. Patient states that he has Percocet and Zofran at home for symptoms but they have not been helping. He has not run out of either of those. He also takes probiotics. He was recently hospitalized here at [facility] for abdominal pain, states he had upper and lower endoscopy by Dr. Villanueva, patient first told nursing staff "Dr. Villanueva thinks I have stomach cancer", then when I ask him some more about this, he changed his statement to Dr. Villanueva did a biopsy to rule out cancer. The patient states he does not know the results of his biopsy which is also causing him concern. Patient does not have a PCP. He is waiting to get his insurance. He has not followed up with Dr. Villanueva in the office after his hospitalization in July. Patient is noted to be wearing a patch on his left eye. 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 Patient is waiting for disability to go through, he is not working. He does not drink alcohol. He does not smoke cigarettes but he does chew "a lot". He has a history of asthma states he has been intubated 4 times. Review of Systems Review of Systems Constitutional: Denies fever or chills [] Eyes: As in history of present illness for chronic problem of the left eye HENT: Denies nasal congestion or sore throat [] Respiratory: Denies cough or shortness of breath [] Cardiovascular: Denies chest pain GI: As in history of present illness : Denies dysuria or hematuria [] Musculoskeletal: Denies back pain or joint pain [] Integument: Denies rash or skin lesions [] Neurologic: Denies headache, focal weakness or sensory changes [] Current Medications Current Medications Current Medications Medications (Trade) Dose Ordered Sig/Sugar Start Time Stop Time Status Last Admin Dose Admin Ondansetron HCl (Zofran) 8 mg 1X ONCE 08/21/16 14:15 08/21/16 14:16 DC Pantoprazole Sodium (Protonix Vial) 40 mg 1X ONCE 08/21/16 14:15 08/21/16 14:16 DC Sodium Chloride (Iv Sodium Chloride 0.9% 1000ml Bag) 1,000 ml @ 1,000 mls/hr Q1H 08/21/16 14:00 08/21/16 14:18 DC Allergies Allergies Allergies Coded Allergies Type Severity Reaction Last Updated Verified NSAIDS (Non-Steroidal Anti-Inflamma Allergy Severe Anaphylaxis 08/15/16 Yes promethazine Allergy Severe Anxiety 08/15/16 Yes chlorpheniramine Allergy Intermediate 08/15/16 Yes levofloxacin Allergy Intermediate 08/15/16 Yes lorazepam Allergy Intermediate 08/15/16 Yes metoclopramide Allergy Intermediate 08/15/16 Yes phenylephrine Allergy Intermediate 08/15/16 Yes scopolamine Allergy Intermediate 08/15/16 Yes tramadol Allergy Intermediate 08/15/16 Yes Physical Exam Physical Exam Constitutional: Well developed, well nourished, no acute distress, non-toxic appearance. Alert, mentating normally, does not appear to be in any distress whatsoever. HENT: Normocephalic, atraumatic, bilateral external ears normal, oropharynx moist, nose normal. [] Eyes: conjunctiva normal, no discharge. [] Neck: Normal range of motion, no stridor. [] Cardiovascular:Heart rate regular rhythm, no murmur [] Lungs & Thorax: Good air movement throughout, expiratory wheezes present throughout Abdomen: Bowel sounds normal, soft, nondistended, no masses, no pulsatile masses. Mild left upper quadrant tenderness to palpation. No rebound or guarding. The patient's abdominal exam is very benign. Skin: Warm, dry, no erythema, no rash. [] Extremities: No tenderness, no cyanosis, no clubbing, ROM intact, no edema. [] Neurologic: Alert and oriented X 3, normal motor function, normal sensory function, no focal deficits noted. [] Current Patient Data Vital Signs Vital Signs Date Time Temp Pulse Resp B/P Pulse Ox O2 Delivery O2 Flow Rate FiO2 08/21/16 13:14 98.4 93 16 115/83 97 Room Air 98.4 EKG EKG [] Radiology/Procedures Radiology/Procedures [] Course & Med Decision Making Course & Med Decision Making Pertinent Labs and Imaging studies reviewed. (See chart for details) 35-year-old male who has had multiple visits to [facility] for abdominal pain, nausea and vomiting. The patient does not appear to be in any distress at this time. I had a long conversation with the patient and told him that I would recommend some labs, IV fluids, IV nausea medication. I told him that use of IV opiates for exacerbation of chronic abdominal pain is something that is not really an indication for IV opiates and at this time I like to call his GI physician, Dr. Villanueva, to discuss his case and see if there is anything more that he would like to add. At that time, the patient told the nursing staff that he would like to leave and does not want any further evaluation or treatment. I was able to review his previous hospitalization pathology report and I did print off the biopsies from his endoscopy which showed normal tissue in the duodenum and mild to moderate gastritis in the stomach. I gave a copy to the patient and reassured him that it appears that his abscesses were relatively normal and he does not have cancer. Because of his finding of gastritis I did recommend that he take a daily proton pump inhibitor as directed on the package until he sees Dr. Villanueva for recheck. [] Dragon Disclaimer Dragon Disclaimer This electronic medical record was generated, in whole or in part, using a voice recognition dictation system. Departure Departure Impression: Primary Impression: Abdominal pain Disposition: 01 HOME, SELF-CARE Condition: STABLE Referrals: NO PCP (PCP) Patient Instructions: Abdominal Pain, [id number] MILENA NARAYAN MD Aug 21, 2016 14:05
[2016-08-21] MEDS ORDERED: ONDANSETRON PF 4 MG/2 ML VIAL. IV ONE (14:15)
[2016-08-21] MEDS ORDERED: PANTOPRAZOLE IV PUSH 40 MG VIAL. IVP ONE (14:15)
== END 2016-08-21 14:12 | disposition home or self-care (01) ==
LOC: ER 12:41
DX: R10.9 Unspecified abdominal pain (principal); R11.2 Nausea with vomiting, unspecified; J45.909 Unspecified asthma, uncomplicated; C16.9 Malignant neoplasm of stomach, unspecified; Z98.890 Other specified postprocedural states; Z90.49 Acquired absence of other specified parts of digestive tract; F17.219 Nicotine dependence, cigarettes, with unspecified nicotine-induced disorders
CPT/HCPCS: 99281

== ENCOUNTER 2016-08-24 20:16 | Emergency (ER) | payer SELFPAY ==
[2016-08-24 20:21] VITALS: BP 132/92
--- NOTE | 2016-08-24 21:03 | PHYS DOC ---
Past Medical History Past Medical History: Asthma, Other Additional Past Medical Histor: C-DIFF Past Surgical History: Appendectomy, Cholecystectomy Additional Past Surgical Histo: NASAL, CYST ON RIGHT WRIST Alcohol Use: None Drug Use: None Adult General Chief Complaint Chief Complaint: ASTHMA HPI HPI Patient is a 35 year old male presents emergency department stating that he has been having shortness of air difficulty breathing since today. He states she 's been having problems with his asthma in which she has been having wheezing with a productive cough that is yellow in color. Patient states that he has used his albuterol treatment earlier today approximately one and half hours ago with no relief. Patient states he has a difficulty time getting air in. He states that he has some chest tightness. He is complaining of right upper chest pain and discomfort. Patient states that he is allergic to nonsteroidal anti- inflammatories tramadol multiple other multiple medications. Patient was also seen here on 21 August for abdominal pain and discomfort and has been provided with Percocet. Patient is requesting pain medication at this time he'll be provided with hydrocodone. Review of Systems Review of Systems Constitutional: Denies fever or chills [] Eyes: Denies change in visual acuity, redness, or eye pain [] HENT: Denies nasal congestion or sore throat [] Respiratory: Cough and shortness of air Cardiovascular: No additional information not addressed in HPI [] GI: Denies abdominal pain, nausea, vomiting, bloody stools or diarrhea [] : Denies dysuria or hematuria [] Musculoskeletal: Denies back pain or joint pain [] Integument: Denies rash or skin lesions [] Neurologic: Denies headache, focal weakness or sensory changes [] Current Medications Current Medications Current Medications Medications (Trade) Dose Ordered Sig/Sugar Start Time Stop Time Status Last Admin Dose Admin Acetaminophen/ Hydrocodone Bitart (Lortab 5/325) 1 tab 1X ONCE 08/24/16 21:15 08/24/16 21:16 DC 08/24/16 21:30 1 TAB Albuterol/ Ipratropium (Duoneb) 3 ml 1X ONCE 08/24/16 21:15 08/24/16 21:16 DC 08/24/16 21:26 3 ML Allergies Allergies Allergies Coded Allergies Type Severity Reaction Last Updated Verified NSAIDS (Non-Steroidal Anti-Inflamma Allergy Severe Anaphylaxis 08/15/16 Yes promethazine Allergy Severe Anxiety 08/15/16 Yes chlorpheniramine Allergy Intermediate 08/15/16 Yes levofloxacin Allergy Intermediate 08/15/16 Yes lorazepam Allergy Intermediate 08/15/16 Yes metoclopramide Allergy Intermediate 08/15/16 Yes phenylephrine Allergy Intermediate 08/15/16 Yes scopolamine Allergy Intermediate 08/15/16 Yes tramadol Allergy Intermediate 08/15/16 Yes Physical Exam Physical Exam Constitutional: Well developed, well nourished, no acute distress, non-toxic appearance. [] HENT: Normocephalic, atraumatic, bilateral external ears normal, oropharynx moist, no oral exudates, nose normal. Bilateral tympanic membranes appear to be normal. Eyes: PERRLA, EOMI, conjunctiva normal, no discharge. [] Neck: Normal range of motion, no tenderness, supple, no stridor. [] Cardiovascular:Heart rate regular rhythm, no murmur [] Lungs & Thorax: Bilateral breath sounds clear to auscultation, patient was also noted to have good air movement. Skin: Warm, dry, no erythema, no rash. [] Back: No tenderness Extremities: No tenderness, no cyanosis, no clubbing, ROM intact, no edema. [] Neurologic: Alert and oriented X 3, normal motor function, normal sensory function, no focal deficits noted. [] Psychologic: Affect normal, judgement normal, mood normal. [] Current Patient Data Vital Signs Vital Signs Date Time Temp Pulse Resp B/P Pulse Ox O2 Delivery O2 Flow Rate FiO2 08/24/16 21:30 Room Air 08/24/16 21:28 99 08/24/16 20:21 99.2 110 22 99.2 EKG EKG [] Radiology/Procedures Radiology/Procedures [] Course & Med Decision Making Course & Med Decision Making Pertinent Labs and Imaging studies reviewed. (See chart for details) Patient was provided with hydrocodone here in the emergency department. He was provided with treatment. Chest x-ray was negative. Patient states he is able to breathe much better. He'll be discharged home with an albuterol inhaler as he states that he has into his previous one. Recommended following up with her primary care physician next 3-5 days. Signs symptoms to return back to emergency department as been provided. Patient agrees with discharge instructions treatment regimens and follow-up recommendations. [] Dragon Disclaimer Dragon Disclaimer This electronic medical record was generated, in whole or in part, using a voice recognition dictation system. Departure Departure Impression: Primary Impression: Asthma exacerbation Disposition: 01 HOME, SELF-CARE Condition: STABLE Referrals: NO PCP (PCP) Patient Instructions: Asthma, Adult, [id number] Additional Instructions: Activity as tolerated. Medication as prescribed. You may also try Zyrtec and Claritin to see if this will help reduce her asthma symptoms. Drink plenty of fluids. Follow-up primary care physician next 3-5 days. Scripts Albuterol Sulfate (Proair Hfa Inhaler)8.5 Gm [id number] Puff INH PRN Q6HRS PRN SHORTNESS OF BREATH #1 INHALER Prov:AYSE WADE APRN 08/24/16 AYSE WADE APRN Aug 24, 2016 21:03
[2016-08-24] MEDS ORDERED: HYDROCODONE/APAP 5/325MG TABLET. PO ONE (21:15)
[2016-08-24] MEDS ORDERED: IPRATRPIUM/ALBUTEROL 0.5/2.5MG 3 ML NEBU. NEB ONE (21:15)
[2016-08-24] MEDS ORDERED: PROAIR HFA8.5 GM INH (22:08)
--- NOTE | 2016-08-25 08:25 | RAD ---
2 view CXR: Clinical indications: Cough and chest pain today. Findings: No acute lung infiltrate or pleural effusion or pulmonary edema or lung mass or pneumothorax is seen. The heart size, pulmonary vasculature, mediastinum and both tonia are unremarkable. The osseous structures appear intact. Impression: No acute radiographic abnormality is seen.
== END 2016-08-24 22:30 | disposition home or self-care (01) ==
LOC: ER 20:16
DX: J45.901 Unspecified asthma with (acute) exacerbation (principal); Z88.6 Allergy status to analgesic agent; Z88.8 Allergy status to other drugs, medicaments and biological substances; Z88.1 Allergy status to other antibiotic agents
CPT/HCPCS: 71020; 94640; 99284; J7620; 94250

== ENCOUNTER 2016-10-23 22:06 | Emergency (ER) | payer SELFPAY ==
[~2016-10-23] VITALS: Ht 170.2 cm; Wt 72.6 kg
[~2016-10-23 22:06] MED LIST changes: -METR500T4 PO; +METR500T8 PO; +PROAIR HFA8.5 GM INH
[2016-10-23 22:32] VITALS: BP 96/60
[2016-10-23] MEDS ORDERED: oxyCODONE/APAP 5/325 1 TAB TABLET PO ONE (23:00)
[2016-10-23] MEDS ORDERED: ALBUTEROL SULFATE 2.5 MG/3 ML NEBU. NEB ONE ×2 (23:00→23:30)
[2016-10-23] MEDS ORDERED: IPRATRPIUM/ALBUTEROL 0.5/2.5MG 3 ML NEBU. NEB ONE (23:00)
[2016-10-23] MEDS ORDERED: DEXAMETHASONE 4 MG TABLET PO ONE (23:00)
[2016-10-23] MEDS ORDERED: PROAIR HFA8.5 GM INH (23:26)
--- NOTE | 2016-10-23 23:26 | PHYS DOC ---
Past Medical History Past Medical History: Asthma Additional Past Medical Histor: C-DIFF Past Surgical History: Appendectomy, Cholecystectomy Additional Past Surgical Histo: NASAL, CYST ON RIGHT WRIST Alcohol Use: None Drug Use: None Adult General Chief Complaint Chief Complaint: ASTHMA HPI HPI Patient is a 35 year old male presenting to the emergency department for evaluation of shortness of breath that started approximately 2 hours prior to arrival. Had no obvious exposure and the started at rest but he is having worsening wheezing and feels a sharp pain whenever he takes a deep breath. His that he has known asthma and this feels very similar to his asthma as he cannot control his wheezing. Patient is in moderate respiratory distress with normal vital signs. Review of Systems Review of Systems Constitutional: Denies fever or chills [] Eyes: Denies change in visual acuity, redness, or eye pain [] HENT: Denies nasal congestion or sore throat [] Respiratory: + cough and shortness of breath [] Cardiovascular: No additional information not addressed in HPI [] GI: Denies abdominal pain, nausea, vomiting, bloody stools or diarrhea [] : Denies dysuria or hematuria [] Musculoskeletal: Denies back pain or joint pain [] Integument: Denies rash or skin lesions [] Neurologic: Denies headache, focal weakness or sensory changes [] Current Medications Current Medications Current Medications Medications (Trade) Dose Ordered Sig/Sugar Start Time Stop Time Status Last Admin Dose Admin Albuterol Sulfate (Ventolin Neb Soln) 5 mg 1X ONCE 10/23/16 23:30 10/23/16 23:31 UNV Albuterol/ Ipratropium (Duoneb) 3 ml 1X ONCE 10/23/16 23:00 10/23/16 23:01 DC 10/23/16 22:40 3 ML Dexamethasone (Decadron) 10 mg 1X ONCE 10/23/16 23:00 10/23/16 23:01 DC 10/23/16 22:30 10 MG Oxycodone/ Acetaminophen (Percocet 5/325) 2 tab 1X ONCE 10/23/16 23:00 10/23/16 23:01 DC 10/23/16 22:31 2 TAB Allergies Allergies Allergies Coded Allergies Type Severity Reaction Last Updated Verified NSAIDS (Non-Steroidal Anti-Inflamma Allergy Severe Anaphylaxis 08/15/16 Yes promethazine Allergy Severe Anxiety 08/15/16 Yes chlorpheniramine Allergy Intermediate 08/15/16 Yes levofloxacin Allergy Intermediate 08/15/16 Yes lorazepam Allergy Intermediate 08/15/16 Yes metoclopramide Allergy Intermediate 08/15/16 Yes phenylephrine Allergy Intermediate 08/15/16 Yes scopolamine Allergy Intermediate 08/15/16 Yes tramadol Allergy Intermediate 08/15/16 Yes Physical Exam Physical Exam Constitutional: Well developed, well nourished, no acute distress, non-toxic appearance. [] HENT: Normocephalic, atraumatic, bilateral external ears normal, oropharynx moist, no oral exudates, nose normal. [] Eyes: PERRLA, EOMI, conjunctiva normal, no discharge. [] Neck: Normal range of motion, no tenderness, supple, no stridor. [] Cardiovascular:Heart rate regular rhythm, no murmur [] Lungs & Thorax: Bilateral breath sounds diminished with inspiratory and expiratory wheezing. Abdomen: Bowel sounds normal, soft, no tenderness, no masses, no pulsatile masses. [] Skin: Warm, dry, no erythema, no rash. [] Back: No tenderness, no CVA tenderness. [] Extremities: No tenderness, no cyanosis, no clubbing, ROM intact, no edema. [] Neurologic: Alert and oriented X 3, normal motor function, normal sensory function, no focal deficits noted. [] Current Patient Data Vital Signs Vital Signs Date Time Temp Pulse Resp B/P (MAP) Pulse Ox O2 Delivery O2 Flow Rate FiO2 10/23/16 22:42 95 Room Air 10/23/16 22:41 101 18 10/23/16 22:32 98.4 96/60 (72) 98.4 EKG EKG [] Radiology/Procedures Radiology/Procedures Normal mediastinum and normal heart size no obvious free air pneumothorax or opacity. Course & Med Decision Making Course & Med Decision Making Patient given multiple breathing treatments and his aeration improved but he had some persistent wheezing. A second round of albuterol and his wheezing greatly improved and he says that he is no longer short of breath. Repeat vital signs are normal and he appears well so he'll be discharged with albuterol. He is concerned that he may not be able to afford it so recommended the good Rx website and taking to [facility]. Patient aware and agreeable with plan for discharge and verbalized understanding of the need for short-term follow-up and strict ER return precautions discussed worsening pain shortness of breath or other general concerns. Dragon Disclaimer Dragon Disclaimer This electronic medical record was generated, in whole or in part, using a voice recognition dictation system. Departure Departure Impression: Primary Impression: Asthma exacerbation Disposition: 01 HOME, SELF-CARE Condition: GOOD Referrals: NO PCP (PCP) Patient Instructions: Asthma, Adult Scripts Albuterol Sulfate (PROAIR HFA INHALER) 8.5 Gm Hfa.aer.ad 1 PUFF INH Q4HRS Y for SHORTNESS OF BREATH, #1 INHALER 2 Refills Prov: YOSELYN LIANG DO 10/23/16 YOSELYN LIANG DO Oct 23, 2016 23:26
--- NOTE | 2016-10-24 07:45 | RAD ---
Indication shortness of air. A single view of the chest was obtained. Comparison is made to a study 2 months earlier. The heart, pulmonary vessels and mediastinum appear normal. The lungs are clear. There is no pleural fluid or pneumothorax. There has not been a significant change compared to the previous exam. IMPRESSION: No acute or focal process. No significant change
== END 2016-10-24 00:30 | disposition home or self-care (01) ==
LOC: ER 22:06
DX: J45.901 Unspecified asthma with (acute) exacerbation (principal); Z90.49 Acquired absence of other specified parts of digestive tract; Z90.89 Acquired absence of other organs
CPT/HCPCS: 71010; 94250; 94640; 99285; J7620; J8540

== ENCOUNTER 2016-11-26 23:50 | Emergency (ER) | payer SELFPAY ==
[~2016-11-26] VITALS: Ht 170.2 cm; Wt 72.6 kg
[2016-11-27 00:43] VITALS: BP 144/93
[2016-11-27] MEDS ORDERED: IPRATRPIUM/ALBUTEROL 0.5/2.5MG 3 ML NEBU. NEB ONE ×2 (01:00→02:30)
[2016-11-27] MEDS ORDERED: predniSONE 20 MG TABLET PO ONE (01:00)
[2016-11-27] MEDS ORDERED: ACETAMINOPHEN 325 MG TABLET. PO ONE (01:15)
[2016-11-27] MEDS ORDERED: PRED50TA PO (02:28)
[2016-11-27] MEDS ORDERED: PROAIR HFA8.5 GM INH (02:28)
--- NOTE | 2016-11-27 02:29 | PHYS DOC ---
Past Medical History Past Medical History: Asthma Additional Past Medical Histor: C-DIFF Past Surgical History: Appendectomy, Cholecystectomy Additional Past Surgical Histo: NASAL, CYST ON RIGHT WRIST Alcohol Use: None Drug Use: None Adult General Chief Complaint Chief Complaint: ASTHMA HPI HPI 36 yo M presenting with an asthma attack and pleuritic cp. started about 24 hours ago. not alleviated by his albuterol mdi at home. pain is sharp nonradiating and without alleviating factors. pt denies hemoptysis, unilateral leg swelling or pain, previous dvt, fam hx of clotting disorder, or recent immobilization. ros neg for abd pain, fever, cough chills. all other ros is neg. ed course: 36 yo M presenting with soa likely 2/2 asthma. ekg nl. chest xray nl. pt has significant wheezing bilaterally and got 2 nebs in the ed. on rexam pt is much improved and ready for d/c. f/u with pcp in 3 days. Current Medications Current Medications Current Medications Medications (Trade) Dose Ordered Sig/Sugar Start Time Stop Time Status Last Admin Dose Admin Acetaminophen (Tylenol) 650 mg 1X ONCE 11/27/16 01:15 11/27/16 01:16 DC 11/27/16 01:05 650 MG Albuterol/ Ipratropium (Duoneb) 3 ml 1X ONCE 11/27/16 02:30 11/27/16 02:31 DC 11/27/16 02:01 3 ML Prednisone (Prednisone) 50 mg 1X ONCE 11/27/16 01:00 11/27/16 01:01 DC 11/27/16 01:05 50 MG Allergies Allergies Allergies Coded Allergies Type Severity Reaction Last Updated Verified NSAIDS (Non-Steroidal Anti-Inflamma Allergy Severe Anaphylaxis 08/15/16 Yes promethazine Allergy Severe Anxiety 08/15/16 Yes chlorpheniramine Allergy Intermediate 08/15/16 Yes levofloxacin Allergy Intermediate 08/15/16 Yes lorazepam Allergy Intermediate 08/15/16 Yes metoclopramide Allergy Intermediate 08/15/16 Yes phenylephrine Allergy Intermediate 08/15/16 Yes scopolamine Allergy Intermediate 08/15/16 Yes tramadol Allergy Intermediate 08/15/16 Yes Physical Exam Physical Exam Constitutional: Well developed, well nourished, no acute distress, non-toxic appearance. [] HENT: Normocephalic, atraumatic, bilateral external ears normal, oropharynx moist, no oral exudates, nose normal. [] Eyes: PERRLA, EOMI, conjunctiva normal, no discharge. [] Neck: Normal range of motion, no tenderness, supple, no stridor. [] Cardiovascular:Heart rate regular rhythm, no murmur [] Lungs & Thorax: see above Abdomen: Bowel sounds normal, soft, no tenderness, no masses, no pulsatile masses. [] Skin: Warm, dry, no erythema, no rash. [] Back: No tenderness, no CVA tenderness. [] Extremities: No tenderness, no cyanosis, no clubbing, ROM intact, no edema. [] Neurologic: Alert and oriented X 3, normal motor function, normal sensory function, no focal deficits noted. [] Psychologic: Affect normal, judgement normal, mood normal. [] Current Patient Data Vital Signs Vital Signs Date Time Temp Pulse Resp B/P (MAP) Pulse Ox O2 Delivery O2 Flow Rate FiO2 11/27/16 02:03 99 Room Air 11/27/16 00:43 98.0 91 20 98.0 EKG EKG [] Radiology/Procedures Radiology/Procedures [] Course & Med Decision Making Course & Med Decision Making Pertinent Labs and Imaging studies reviewed. (See chart for details) [] Dragon Disclaimer Dragon Disclaimer This electronic medical record was generated, in whole or in part, using a voice recognition dictation system. Departure Departure Impression: Primary Impression: Asthma exacerbation Disposition: 01 HOME, SELF-CARE Condition: STABLE Referrals: NO PCP (PCP) STUART WAGONER MD Patient Instructions: Asthma, Adult Additional Instructions: Thank you for allowing us to participate in your care today. Followup with your primary care physician in 3 days if your symptoms do not improve. Call your Primary Doctor tomorrow and inform them of your visit today. If you do not have a primary care provider you can ask for a list of our primary care providers. Return to the emergency department you have any new or concerning findings. This should be evaluated by the primary care physician and any necessary consulting services for continued management within a few days after discharge. Return to emergency room if you have any new or concerning symptoms including but not limited to fever, chills, nausea, vomiting, intractable pain, any new rashes, chest pain, shortness of air, uncontrolled bleeding, difficulty breathing, and/or vision loss. Scripts Albuterol Sulfate (PROAIR HFA INHALER) 8.5 Gm Hfa.aer.ad 1 PUFF INH PRN Q6HRS Y for SHORTNESS OF BREATH, #1 INHALER 0 Refills Prov: LUIS QUINTERO MD 11/27/16 Prednisone (PREDNISONE) 50 Mg Tablet 50 MG PO DAILY, #5 TAB Prov: LUIS QUINETRO MD 11/27/16 LUIS QUINTERO MD Nov 27, 2016 02:29
--- NOTE | 2016-11-27 06:14 | EKG ---
[facility] [address] [place] [address] Test Date: 2016-11-27 Test Time: 00:57:49 Pat Name: STEVEN LUDWIG Department: Room: Gender: M [employer]: : 1980 Requested By: LUIS QUINTERO Order Number: [id number] Reading MD: Gaby Cazares Measurements Intervals Wiley Rate: 83 P: 63 [place]: 150 QRS: 55 QRSD: 94 T: 38 QT: 356 QTc: 419 Interpretive Statements SINUS RHYTHM NORMAL ECG RI6.01 No previous ECG available for comparison Electronically Signed On 12-01-2016 15:13:51 CDT by Gaby Cazares
--- NOTE | 2016-11-27 07:34 | RAD ---
Chest, 2 views, 11/27/2016: History: Chest pain, asthma Comparison is made to a study from 10/23/2016. The heart size and pulmonary vascularity are normal. No pulmonary infiltrates are seen. There is no evidence of pleural fluid. There is minimal spurring in the spine. IMPRESSION: No acute cardiopulmonary abnormality is detected.
== END 2016-11-27 02:37 | disposition home or self-care (01) ==
LOC: ER 23:50
DX: J45.901 Unspecified asthma with (acute) exacerbation (principal); R07.81 Pleurodynia; Z88.6 Allergy status to analgesic agent; Z88.1 Allergy status to other antibiotic agents; Z88.8 Allergy status to other drugs, medicaments and biological substances
CPT/HCPCS: 71020; 93005; 94640; 99284; J7512; J7620